=== PATIENT | male | born 1975 | race Caucasian/White ===

== ENCOUNTER 2020-07-25 13:09 | Emergency (ER) | payer SELFPAY ==
[2020-07-25] VITALS (7 sets, daily range): BP systolic 120–228; BP diastolic 85–116; PULSE 81–92; RESP 13–18; TEMP 36.8; O2SAT 93–100; BMI 25.7
--- NOTE | 2020-07-25 14:56 | XR_ITS ---
WS: [id number] Portable AP upright chest, 07/25/2020 Clinical Data: chest pain Comparison: None. Findings: No nodules, masses or effusions are seen. The heart is normal. The pulmonary vascularity is not increased. No pneumonia or pneumothorax is seen. XR/XR chest 1V portable [id number] Impression: Negative chest.
--- NOTE | 2020-07-25 14:56 | ECG_ITS ---
[facility] Test Date: 2020-07-25 Pat Name: GRACE NARAYANAN Department: Room: Gender: Male Rn Ent: : [id number] Requested By: Nikolas Perry Order Number: [id number] Alex MD: Juan Hinson M.D. Measurements Intervals [place] Rate: 85 P: 37 GA: 116 QRS: 34 QRSD: 82 T: 52 QT: 361 QTc: 431 Interpretive Statements SINUS RHYTHM WITH SHORT GA INTERVAL No previous ECG available for comparison Electronically Signed On 07-25-2020 16:01:11 VOLUNTEER PATIENT REPRESENTATIVE by Juan Hinson M.D. [id number]
--- NOTE | 2020-07-25 14:58 | ED_ITS ---
Documented by User: Nikolas Polanco DO 07/29/20 12:14 HPI - Chest Pain General: Chief Complaint: Chest Pain Stated Complaint: CP Time Seen by Provider: 07/25/20 14:53 History of Present Illness: HPI narrative: 45-year-old male notes to the emergency room with complaint of chest discomfort high blood pressure anxiety and shaking. Patient readily admits he drinks heavily on a daily basis pretty much whatever he can get his hands on as far as alcohol goes but in very large quantities has been doing this for years. He has not had any seizures. MD complaint: chest pain and chest discomfort Onset (ago): day(s) Timing of current episode: episodic Onset: during rest Pain location: substernal, left chest and epigastric Pain radiation: none Severity: moderate Quality: aching and heaviness Relieving factors: nothing Exacerbating factors: eating Associated symptoms: Reports abdominal pain, diaphoresis and nausea; Deny dyspnea, fever(s), leg edema, palpitations, sense of impending doom, syncope or vomiting Treatment prior to arrival: none Review of Systems Const: Reports: diaphoresis; Denies: fever(s) ENMT: Denies: throat pain, ear or mastoid pain, nasal discharge or nasal congestion Card: Denies: palpitations or syncope Resp: Denies: dyspnea GI: Reports: abdominal pain and nausea; Denies: vomiting : Denies: flank pain, dysuria, urinary frequency or urinary urgency Skin/Breast: Denies: rash or pruritus Physical Exam Const: COMMON NORMALS: no acute distress GENERAL APPEARANCE: cooperative and comfortable ORIENTATION/CONSCIOUSNESS: Yes awake, Yes oriented to person, Yes oriented to place and Yes oriented to time HENMT: COMMON NORMALS: normocephalic, atraumatic and hearing grossly normal bilaterally HEAD & SCALP: normocephalic and atraumatic Neck/C-Spine: COMMON NORMALS: no JVD Resp: COMMON NORMALS: normal respiratory effort, No retractions, No use of accessory muscles and clear to auscultation bilaterally AUSCULTATION: clear to auscultation bilaterally Cardio: COMMON NORMALS: no JVD, regular rate, regular rhythm and No murmurs present (Cardio) RATE: regular rate RHYTHM: regular rhythm GI: COMMON NORMALS: Soft to palpation and No hepatosplenomegaly present AUSCULTATION: Yes normoactive bowel sounds PALPATION: Yes Soft to palpation, Yes Tenderness to palpation present (GI) (Epigastric), No Guarding due to palpation present (GI) and Yes No hepatosplenomegaly present Extremity: COMMON NORMALS: normal to inspection, capillary refill normal, no clubbing, cyanosis or edema, no calf tenderness and no pedal edema Neuro: SENSORIUM/ORIENTATION: Yes oriented to person, Yes oriented to place and Yes oriented to time Skin: COMMON NORMALS: no rashes or lesions noted GENERAL SKIN EXAM: no rashes or lesions noted Course Vital Signs: Vital signs: Vital Signs Temperature 98.2 F 07/25/20 13:19 Pulse Rate 86 07/25/20 19:29 Respiratory Rate 16 07/25/20 19:29 Blood Pressure 120/85 07/25/20 19:29 Pulse Oximetry 100 07/25/20 19:29 MDM - Chest Pain MDM Narrative: Medical decision making narrative: Turned over to Dr. Sánchez at change of shift see his diagnosis and disposition on final notes. Lab Data: Labs: Lab Results 07/25/20 07/25/20 07/25/20 Range/Units 15:50 15:50 15:50 WBC 6.0 (4.0-10.0) 10^3/ uL RBC 4.64 (4.1-5.3) 10^6/u L Hgb 15.2 (11.7-16.6) g/dL Hct 44.2 (42.0-52.0) % MCV 95.3 H (80-94) fL MCH 32.8 (28.0-34.0) pg MCHC 34.4 (30.0-36.0) g/dL RDW 13.2 (12.1-15.1) % Plt Count 258 (130-400) 10^3/c mm MPV 10.9 H (7.4-10.4) fL Neut % (Auto) 63.7 % Lymph % (Auto) 21.9 % [place] % (Auto) 12.0 % Eos % (Auto) 1.0 % Baso % (Auto) 1.2 % Neut # (Auto) 3.81 (1.8-7.7) 10^3/u L Lymph # (Auto) 1.3 (0.8-4.8) 10^3/u L [place] # (Auto) 0.7 (0.2-0.9) 10^3/u L Eos # (Auto) 0.1 (0.0-0.8) 10^3/u L Baso # (Auto) 0.1 (0.0-0.1) 10^3/u L Nucleated RBC % (a uto) 0 % Nucleated RBCs # 0.0 /100WBC PT (12.1-14.9) SECO NDS INR (0.8-1.2) APTT (23.9-36.7) SECO NDS Sodium 139 (136-145) mmol/L Potassium 4.3 (3.5-5.1) mmol/L Chloride 102 (98-107) mmol/L Carbon Dioxide 22 (22-29) mmol/L Anion Gap 19.3 H (5-19) BUN 8 (6-20) mg/dL Creatinine 0.6 L (0.7-1.2) mg/dL GFR Calculation 147.0 H (90-130) mL/min Glucose 81 (65-115) mg/dL Calculated Osmolal ity 285 (285-295) mOsm/k g Calcium 9.3 (8.5-10.5) mg/dL Total Bilirubin 0.4 (0.15-1.2) mg/dL AST 53 H (0-40) U/L ALT 44 H (0-41) U/L Alkaline Phosphata se 103 (40-130) IU/L Troponin T Baselin e 7 (0-15) ng/L Troponin T 120 Min [place] band (0-15) ng/L Delta Troponin T (0-10) ABS# Total Protein 7.4 (6.6-8.7) g/dL Albumin 4.7 (3.5-5.2) g/dL Globulin 2.7 (1.3-4.6) g/dL 07/25/20 07/25/20 Range/Units 15:50 18:24 WBC (4.0-10.0) 10^3/ uL RBC (4.1-5.3) 10^6/u L Hgb (11.7-16.6) g/dL Hct (42.0-52.0) % MCV (80-94) fL MCH (28.0-34.0) pg MCHC (30.0-36.0) g/dL RDW (12.1-15.1) % Plt Count (130-400) 10^3/c mm MPV (7.4-10.4) fL Neut % (Auto) % Lymph % (Auto) % [place] % (Auto) % Eos % (Auto) % Baso % (Auto) % Neut # (Auto) (1.8-7.7) 10^3/u L Lymph # (Auto) (0.8-4.8) 10^3/u L [place] # (Auto) (0.2-0.9) 10^3/u L Eos # (Auto) (0.0-0.8) 10^3/u L Baso # (Auto) (0.0-0.1) 10^3/u L Nucleated RBC % (a uto) % Nucleated RBCs # /100WBC PT 12.90 (12.1-14.9) SECO NDS INR 0.94 (0.8-1.2) APTT 30.2 (23.9-36.7) SECO NDS Sodium (136-145) mmol/L Potassium (3.5-5.1) mmol/L Chloride (98-107) mmol/L Carbon Dioxide (22-29) mmol/L Anion Gap (5-19) BUN (6-20) mg/dL Creatinine (0.7-1.2) mg/dL GFR Calculation (90-130) mL/min Glucose (65-115) mg/dL Calculated Osmolal ity (285-295) mOsm/k g Calcium (8.5-10.5) mg/dL Total Bilirubin (0.15-1.2) mg/dL AST (0-40) U/L ALT (0-41) U/L Alkaline Phosphata se (40-130) IU/L Troponin T Baselin e (0-15) ng/L Troponin T 120 Min [place] band 7.37 (0-15) ng/L Delta Troponin T 0.37 (0-10) ABS# Total Protein (6.6-8.7) g/dL Albumin (3.5-5.2) g/dL Globulin (1.3-4.6) g/dL Discharge Plan Discharge Patient Disposition: Home Clinical Impression: Chest pain, Hypertension Condition: Stable Prescriptions: New lisinopril 10 mg tablet 10 mg PO DAILY Qty: 30 RF: 0 clonidine HCl 0.1 mg tablet 0.1 mg PO Q6H PRN (Reason: hypertensive emergency) 30 Days Qty: 30 RF: 0 Discharge Orders: Discharge ED (Routine); Ordered 07/25/20 Ordered By: Gary Sánchez Discharge Diet: Advance as tolerated Discharge Activity: Resume usual activity Patient Instructions: Chest Pain (ED), Hypertension (ED) Coding Level of Care Code ED General Production Worker for Chg Fwd Exam Comprehensive Documented by User: Gary Sánchez MD 07/25/20 19:34 HPI - Chest Pain General: Chief Complaint: Chest Pain Stated Complaint: CP Time Seen by Provider: 07/25/20 14:53 Physical Exam Const: COMMON NORMALS: no acute distress, patient oriented x3 and healthy appearing HENMT: COMMON NORMALS: normocephalic and atraumatic HEAD & SCALP: normocephalic and atraumatic Eye: COMMON NORMALS: Equal, round and reactive pupils present and EOMs intact bilaterally PUPIL: Yes Equal, round and reactive pupils present Neck/C-Spine: COMMON NORMALS: full ROM and supple Chest: COMMONS NORMALS: normal inspection of the chest and normal palpation of entire chest wall Resp: COMMON NORMALS: normal respiratory effort, No retractions, No use of accessory muscles and clear to auscultation bilaterally AUSCULTATION: clear to auscultation bilaterally Cardio: COMMON NORMALS: regular rate, regular rhythm and No murmurs present (Cardio) RATE: regular rate RHYTHM: regular rhythm GI: COMMON NORMALS: Normal to inspection, nondistended, normoactive bowel sounds present, Soft to palpation, non-tender and no masses PALPATION: Yes Soft to palpation Extremity: COMMON NORMALS: normal to inspection and full ROM Neuro: COMMON NORMALS: patient oriented x3, moves all extremities and no focal motor deficits Psych: COMMON NORMALS: mental status grossly normal, Normal thought process present and cooperative THOUGHT PROCESS: Normal thought process present Skin: COMMON NORMALS: no rashes or lesions noted and no wounds GENERAL SKIN EXAM: no rashes or lesions noted Course Vital Signs: Vital signs: Vital Signs Temperature 98.2 F 07/25/20 13:19 Pulse Rate 86 07/25/20 19:29 Respiratory Rate 16 07/25/20 19:29 Blood Pressure 120/85 07/25/20 19:29 Pulse Oximetry 100 07/25/20 19:29 MDM - Chest Pain MDM Narrative: Medical decision making narrative: I took patient over from Dr. Gramajo for his hypertension and chest pain. He feels much improved and is repeat troponin here is negative. His blood pressure is much improved as well. I spoke to him and will start him on lisinopril and write him clonidine as needed. Left Case management set him up for PCP referral and informed he needs to take his blood pressure 3 times a day and keep a log. He is return if he has any alcohol withdrawal symptoms or chest pain. He understands and agrees to plan. Lab Data: Labs: Lab Results 07/25/20 07/25/20 07/25/20 Range/Units 15:50 15:50 15:50 WBC 6.0 (4.0-10.0) 10^3/ uL RBC 4.64 (4.1-5.3) 10^6/u L Hgb 15.2 (11.7-16.6) g/dL Hct 44.2 (42.0-52.0) % MCV 95.3 H (80-94) fL MCH 32.8 (28.0-34.0) pg MCHC 34.4 (30.0-36.0) g/dL RDW 13.2 (12.1-15.1) % Plt Count 258 (130-400) 10^3/c mm MPV 10.9 H (7.4-10.4) fL Neut % (Auto) 63.7 % Lymph % (Auto) 21.9 % [place] % (Auto) 12.0 % Eos % (Auto) 1.0 % Baso % (Auto) 1.2 % Neut # (Auto) 3.81 (1.8-7.7) 10^3/u L Lymph # (Auto) 1.3 (0.8-4.8) 10^3/u L [place] # (Auto) 0.7 (0.2-0.9) 10^3/u L Eos # (Auto) 0.1 (0.0-0.8) 10^3/u L Baso # (Auto) 0.1 (0.0-0.1) 10^3/u L Nucleated RBC % (a uto) 0 % Nucleated RBCs # 0.0 /100WBC PT (12.1-14.9) SECO NDS INR (0.8-1.2) APTT (23.9-36.7) SECO NDS Sodium 139 (136-145) mmol/L Potassium 4.3 (3.5-5.1) mmol/L Chloride 102 (98-107) mmol/L Carbon Dioxide 22 (22-29) mmol/L Anion Gap 19.3 H (5-19) BUN 8 (6-20) mg/dL Creatinine 0.6 L (0.7-1.2) mg/dL GFR Calculation 147.0 H (90-130) mL/min Glucose 81 (65-115) mg/dL Calculated Osmolal ity 285 (285-295) mOsm/k g Calcium 9.3 (8.5-10.5) mg/dL Total Bilirubin 0.4 (0.15-1.2) mg/dL AST 53 H (0-40) U/L ALT 44 H (0-41) U/L Alkaline Phosphata se 103 (40-130) IU/L Troponin T Baselin e 7 (0-15) ng/L Troponin T 120 Min [place] band (0-15) ng/L Delta Troponin T (0-10) ABS# Total Protein 7.4 (6.6-8.7) g/dL Albumin 4.7 (3.5-5.2) g/dL Globulin 2.7 (1.3-4.6) g/dL 07/25/20 07/25/20 Range/Units 15:50 18:24 WBC (4.0-10.0) 10^3/ uL RBC (4.1-5.3) 10^6/u L Hgb (11.7-16.6) g/dL Hct (42.0-52.0) % MCV (80-94) fL MCH (28.0-34.0) pg MCHC (30.0-36.0) g/dL RDW (12.1-15.1) % Plt Count (130-400) 10^3/c mm MPV (7.4-10.4) fL Neut % (Auto) % Lymph % (Auto) % [place] % (Auto) % Eos % (Auto) % Baso % (Auto) % Neut # (Auto) (1.8-7.7) 10^3/u L Lymph # (Auto) (0.8-4.8) 10^3/u L [place] # (Auto) (0.2-0.9) 10^3/u L Eos # (Auto) (0.0-0.8) 10^3/u L Baso # (Auto) (0.0-0.1) 10^3/u L Nucleated RBC % (a uto) % Nucleated RBCs # /100WBC PT 12.90 (12.1-14.9) SECO NDS INR 0.94 (0.8-1.2) APTT 30.2 (23.9-36.7) SECO NDS Sodium (136-145) mmol/L Potassium (3.5-5.1) mmol/L Chloride (98-107) mmol/L Carbon Dioxide (22-29) mmol/L Anion Gap (5-19) BUN (6-20) mg/dL Creatinine (0.7-1.2) mg/dL GFR Calculation (90-130) mL/min Glucose (65-115) mg/dL Calculated Osmolal ity (285-295) mOsm/k g Calcium (8.5-10.5) mg/dL Total Bilirubin (0.15-1.2) mg/dL AST (0-40) U/L ALT (0-41) U/L Alkaline Phosphata se (40-130) IU/L Troponin T Baselin e (0-15) ng/L Troponin T 120 Min [place] band 7.37 (0-15) ng/L Delta Troponin T 0.37 (0-10) ABS# Total Protein (6.6-8.7) g/dL Albumin (3.5-5.2) g/dL Globulin (1.3-4.6) g/dL Discharge Plan Discharge Patient Disposition: Home Clinical Impression: Chest pain, Hypertension Condition: Stable Prescriptions: New lisinopril 10 mg tablet 10 mg PO DAILY Qty: 30 RF: 0 clonidine HCl 0.1 mg tablet 0.1 mg PO Q6H PRN (Reason: hypertensive emergency) 30 Days Qty: 30 RF: 0 Discharge Orders: Discharge ED (Routine); Ordered 07/25/20 Ordered By: Gary Sánchez Discharge Diet: Advance as tolerated Discharge Activity: Resume usual activity Patient Instructions: Chest Pain (ED), Hypertension (ED) Coding Level of Care Code ED General Production Worker for tJ Fwd Exam Comprehensive
[2020-07-25] MEDS: ondansetron 2 mg/ML SDV 2 mL 4 MG IVP (15:55)
[2020-07-25] MEDS: amlodipine 5 mg Tablet PO (15:56)
[2020-07-25] MEDS: cloNIDine 0.1 mg Tablet PO (15:56)
[2020-07-25] MEDS: sodium chloride 0.9% 1,000 ML 999 ML IV (15:56)
[2020-07-25] MEDS: LORazepam 2 mg/mL INJ 1 mL IVP (15:56)
[2020-07-25 16:17] LABS: Basophils # 0.1 10^3/uL (0.0-0.1); Basophils % 1.2 %; Eosinophils # 0.1 10^3/uL (0.0-0.8); Hematocrit 44.2 % (42.0-52.0); Hemoglobin 15.2 g/dL (11.7-16.6); Lymphocytes # 1.3 10^3/uL (0.8-4.8); Lymphocytes % 21.9 %; Mean Corpuscular HGB Conc 34.4 g/dL (30.0-36.0); Mean Corpuscular Hemoglobin 32.8 pg (28.0-34.0); Mean Corpuscular Volume 95.3 fL (80-94); Mean Platelet Volume 10.9 fL (7.4-10.4); Monocytes # 0.7 10^3/uL (0.2-0.9); Neutrophils # 3.81 10^3/uL (1.8-7.7); Neutrophils % 63.7 %; Nucleated Red Blood Cells % 0 %; Platelet Count 258 10^3/cmm (130-400); Red Blood Count 4.64 10^6/uL (4.1-5.3); Red Cell Distribution Width 13.2 % (12.1-15.1)
--- NOTE | 2020-07-25 16:20 | PC.NURSE ---
pt had lower oxygen saturation readings after lorazepam adminstration. this nurse applied 2L per NC of supplemental oxygen
[2020-07-25 16:31] LABS: Alanine Aminotransferase 44 U/L (0-41); Albumin Level 4.7 g/dL (3.5-5.2); Alkaline Phosphatase 103 IU/L (40-130); Blood Urea Nitrogen 8 mg/dL (6-20); Calcium 9.3 mg/dL (8.5-10.5); Carbon Dioxide 22 mmol/L (22-29); Chloride 102 mmol/L (98-107); Creatinine Clr Calc Pharmacy 176.8139; Globulin 2.7 g/dL (1.3-4.6); Glucose 81 mg/dL (65-115); Osmolality Calculated 285 mOsm/kg (285-295); Sodium 139 mmol/L (136-145); Total Bilirubin 0.4 mg/dL (0.15-1.2); Total Protein 7.4 g/dL (6.6-8.7)
[2020-07-25 16:33] LABS: Anion Gap 19.3 (5-19); Aspartate Amino Transferase 53 U/L (0-40); Potassium 4.3 mmol/L (3.5-5.1)
[2020-07-25 16:34] LABS: Troponin(5th) Baseline 7 ng/L (0-15)
[2020-07-25 16:45] LABS: INR 0.94 (0.8-1.2)
--- NOTE | 2020-07-25 16:56 | ECG_ITS ---
[facility] Test Date: 2020-07-25 Pat Name: GRACE NARAYANAN Department: Room: Gender: Male Banquet Manager: : 1975 Requested By: Nikolas Perry Order Number: [id number] Alex MD: Juan Hinson M.D. Measurements Intervals [place] Rate: 82 P: 37 ID: 128 QRS: 34 QRSD: 76 T: 50 QT: 380 QTc: 444 Interpretive Statements SINUS RHYTHM Compared to ECG 07/25/2020 13:16:35 Short ID interval no longer present Electronically Signed On 07-25-2020 17:53:25 BICYCLE REPAIR TECHNICIAN by Juan Hinson M.D. [id number]
[2020-07-25 17:20] LABS: Partial Thromboplastin Time 30.2 SECONDS (23.9-36.7)
[2020-07-25] MEDS: folic acid 1 mg Tablet PO (17:24)
--- NOTE | 2020-07-25 17:29 | PC.NURSE ---
EKG done at 1725 and shown to ER doctor
[2020-07-25 18:47] LABS: Troponin 5 2HR 7.37 ng/L (0-15); Troponin 5 2HR Delta 0.37 ABS# (0-10)
--- NOTE | 2020-07-26 10:23 | DCPLANNER ---
land surveying manager had message to speak with patient about getting a primary care physician. land surveying manager called [phone], unable to speak with patient at this time, a voicemail was left for patient to return cyanide case hardener phone call.
== END 2020-07-25 19:30 | disposition home or self-care (01) ==
PROVIDERS: Family Medicine; Emergency Provider Emergency Medicine
DX: R07.9 Chest pain, unspecified (principal); I10 Essential (primary) hypertension; F10.20 Alcohol dependence, uncomplicated
CPT/HCPCS: 36415; 71045; 80053; 84484; 85025; 85610; 85730; 93005; 96361; 96374; 96375; 99284; J2060; J2405; J3411; J7030

== ENCOUNTER 2022-03-25 10:22 | Emergency (ER) | payer MEDICAID, SELFPAY ==
[2022-03-25 12:39] VITALS: BP 142/74; PULSE 122; RESP 18; TEMP 36.9; O2SAT 95; BMI 23.6
[2022-03-25 12:49] LABS: Basophils # 0.1 10^3/uL (0.0-0.1); Basophils % 0.5 %; Eosinophils # 0.3 10^3/uL (0.0-0.8); Eosinophils % 1.3 %; Hematocrit 47.4 % (42.0-52.0); Hemoglobin 16.5 g/dL (11.7-16.6); Lymphocytes # 0.3 10^3/uL (0.8-4.8); Lymphocytes % 1.7 %; Mean Corpuscular HGB Conc 34.8 g/dL (30.0-36.0); Mean Corpuscular Hemoglobin 33.6 pg (28.0-34.0); Mean Corpuscular Volume 96.5 fl (80-94); Mean Platelet Volume 12.7 fL (7.4-10.4); Monocytes # 0.6 10^3/uL (0.2-0.9); Monocytes % 2.8 %; Neutrophils # 17.66 10^3/uL (1.8-7.7); Neutrophils % 89.7 %; Nucleated Red Blood Cells % 0 %; Platelet Count 142 10^3/cmm (130-400); Red Blood Count 4.91 10^6/uL (4.1-5.3); Red Cell Distribution Width 12.3 % (12.1-15.1); White Blood Count 19.7 10^3/uL (4.0-10.0)
--- NOTE | 2022-03-25 12:58 | XRR_ITS ---
PROCEDURE INFORMATION: Exam: XR Cervical Spine Exam date and time: 03/25/2022 1:06 PM Age: 46 years old Clinical indication: Neck pain; Patient HX: Pain allover, mainly below base of skull TECHNIQUE: Imaging protocol: Radiologic exam of the cervical spine. Views: 2 or 3 views. COMPARISON: CR XR chest 1V portable [id number] 07/25/2020 3:12 PM FINDINGS: Bones/joints: Normal. No acute fracture. Reversal of cervical lordosis which may reflect muscle spasm Soft tissues: Unremarkable. XR/XR cervical spine 3V* [id number] IMPRESSION: 1. No acute findings. 2. Reversal of cervical lordosis possible muscle spasm
--- NOTE | 2022-03-25 13:01 | ED_ITS ---
Documented by User: ELLE Dillard 03/26/22 08:12 HPI - General Adult General: Chief complaint: General Medical Stated complaint: Can't move, full body pain Time Seen by Provider: 03/25/22 12:47 History of Present Illness: Patient is a 46-year-old male comes to the ED with neck pain. He has a history of chronic neck pain but denies any acute injury or trauma to cause neck pain. 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 Pain started last night at the end of his workday. Started initially as a mild aching neck and a severe headache and progressed throughout the evening and last night. His headache today has gotten better and he rates it currently a 3 out of 10. At rest his neck pain is a 5 out of 10 but with any movement and sudden 9 out of 10. Pain radiates down into his trapezius muscles bilaterally. Patient took 800 mg of ibuprofen this morning around 9 AM. Denies any fevers. Patient admits to being a heavy alcohol drinker and tobacco smoker. Associated symptoms: Reports headache(s); Deny chest pain, dyspnea, nausea, rash, palpitations or vomiting Review of Systems Const: Denies: fever(s), chills or fatigue Eyes: Denies: change in vision or eye discomfort ENMT: Denies: throat pain, odynophagia, nasal discharge or nasal congestion Card: Denies: chest pain, palpitations, edema, swelling of feet/ankles, dyspnea on exertion or orthopnea Resp: Denies: dyspnea, productive cough or non-productive cough GI: Denies: abdominal pain, nausea, vomiting, diarrhea, constipation or hematochezia : Denies: flank pain, difficulty urinating, dysuria or hematuria Musc: Reports: neck pain; Denies: back pain or extremity swelling Skin/Breast: Denies: rash or new lesions Neuro: Reports: headache(s); Denies: numbness in extremities or weakness in extremities PFS ED PFSH: Medical History No pertinent family history Surgical History No pertinent past surgical history Physical Exam Const: COMMON NORMALS: no acute distress, patient oriented x3 and alert GEN ERAL APPEARANCE: cooperative and comfortable HENMT: COMMON NORMALS: normocephalic HEAD & SCALP: normocephalic MOUTH: Normal oral and palatal mucosa present THROAT: posterior oropharynx normal and uvula midline Eye: COMMON NORMALS: Equal, round and reactive pupils present and conjunctivae normal CONJUNCTIVA: Yes conjunctivae normal PUPIL: Yes Equal, round and reactive pupils present Neck/C-Spine: COMMON NORMALS: supple and no meningeal signs GENERAL: Yes normal visual inspection CERVICAL SPINE: Yes pain with cervical ROM, Yes Cervical spine tenderness, Yes Paracervical muscle tenderness and Yes Trapezius muscle tenderness Resp: COMMON NORMALS: normal respiratory effort, No retractions, No use of accessory muscles and clear to auscultation bilaterally AUSCULTATION: clear to auscultation bilaterally Cardio: COMMON NORMALS: regular rate, regular rhythm, S1 normal heart sound present, S2 normal heart sound present, No gallops present (Cardio), No clicks present (Cardio), No murmurs present (Cardio) and Peripheral pulses 2+ throughout RATE: regular rate RHYTHM: regular rhythm HEART SOUNDS: S1 normal heart sound present and S2 normal heart sound present PERIPHERAL PULSES: Peripheral pulses 2+ throughout GI: COMMON NORMALS: Normal to inspection, nondistended, normoactive bowel sounds present, Soft to palpation, non-tender and no masses PALPATION: Yes Soft to palpation : COMMON NORMALS: Yes no CVA tenderness BLADDER/KIDNEY EXAM: Yes no CVA tenderness Back/Pelvis: COMMON NORMALS: no CVA tenderness Extremity: COMMON NORMALS: normal to inspection Neuro: COMMON NORMALS: patient oriented x3 SENSORIUM/ORIENTATION: Yes alert MENINGEAL SIGNS: Yes no meningeal signs GAIT: Yes Normal gait present Skin: GENERAL SKIN EXAM: dry skin Course Vital Signs: Vital signs: Vital Signs Temperature 98.4 F 03/25/22 12:39 Pulse Rate 122 H 03/25/22 12:39 Respiratory Rate 18 03/25/22 14:32 Blood Pressure 142/74 03/25/22 12:39 Pulse Oximetry 95 03/25/22 12:39 Oxygen Delivery Me thod 03/25/22 12:[address] [facility] - General Adult Medical Decision Making Patient is a 46-year-old male comes to the ED with neck pain. He has a history of chronic neck pain but denies any acute injury or trauma to cause neck pain. 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 Pain started last night at the end of his workday. Started initially as a mild aching neck and a severe headache and progressed throughout the evening and last night. His headache today has gotten better and he rates it currently a 3 out of 10. Vitals are stable. Patient appears nontoxic in no acute distress. He has pain with cervical range of motion and cervical spine tenderness along with paracervical muscle tenderness and trapezius muscle tenderness bilaterally. No meningeal signs. White blood cell count 19.7 and creatinine was 1.4. X-ray of cervical spine showed no acute fractures or findings. Head CT was negative. Patient was given 1 L of IV fluids, muscle relaxer, Toradol and morphine and his neck pain improved.. I talked with Dr. Polanco about patient case and he went in and examined patient as well. Dr. Espinosa did both agree patient does not show any clinical signs or concerns of meningitis and that neck pain is muscular in nature. Patient was diagnosed with acute neck pain and was stable for discharge home. Patient discharged home with a prescription for a muscle relaxer, Medrol Dosepak, Celebrex and a couple [place] for acute pain. Return to ED precautions given. Follow-up with PCP within the next week for reevaluation. Patient understood and agreed with plan. Lab Data I reviewed the patient's lab results. : 03/25/22 12:26 03/25/22 12:31 Radiology Impressions Cervical Spine X-Ray 03/25/22 12:58 IMPRESSION: 1. No acute findings. 2. Reversal of cervical lordosis possible muscle spasm Head CT 03/25/22 13:45 IMPRESSION: Negative head CT. Laboratory Results WBC 19.7 10^3/uL (4.0-10.0) H 03/25/22 12:26 RBC 4.91 10^6/uL (4.1-5.3) 03/25/22 12:26 Hgb 16.5 g/dL (11.7-16.6) 03/25/22 12: Hct 47.4 % (42.0-52.0) 03/25/22 12: MCV 96.5 fl (80-94) H 03/25/22 12: MCH 33.6 pg (28.0-34.0) 03/25/22 12:26 MCHC 34.8 g/dL (30.0-36.0) 03/25/22 12: RDW 12.3 % (12.1-15.1) 03/25/22 12: Plt Count 142 10^3/cmm (130-400) 03/25/22 12: MPV 12.7 fL (7.4-10.4) H 03/25/22 12: Neut % (Auto) 89.7 % 03/25/22 12: Lymph % (Auto) 1.7 % 03/25/22 12: [place] % (Auto) 2.8 % 03/25/22 12: Eos % (Auto) 1.3 % 03/25/22: Baso % (Auto) 0.5 % 03/25/22 12: Neut # (Auto) 17.66 10^3/uL (1.8-7.7) H 03/25/22 12: Lymph # (Auto) 0.3 10^3/uL (0.8-4.8) L 03/25/22 12: [place] # (Auto) 0.6 10^3/uL (0.2-0.9) 03/25/22 12: Eos # (Auto) 0.3 10^3/uL (0.0-0.8) 03/25/22 12: Baso # (Auto) 0.1 10^3/uL (0.0-0.1) 03/25/22 12: Nucleated RBC % (auto) 0 % 03/25/22 12: Nucleated RBCs # 0.0 /100WBC 03/25/22 12:26 Sodium 132 mmol/L (136-145) L 03/25/22 12:31 Potassium 4.7 mmol/L (3.5-5.1) 03/25/22 12: Chloride 92 mmol/L (98-107) L 03/25/22 12:31 Carbon Dioxide 26 mmol/L (22-29) 03/25/22 12:31 Anion Gap 18.7 (5-19) 03/25/22 12:31 BUN 25 mg/dL (6-20) H 03/25/22 12:31 Creatinine 1.4 mg/dL (0.7-1.2) H 03/25/22 12:31 GFR Calculation 55.1 mL/min (90-130) L 03/25/22 12:31 Glucose 111 mg/dL (65-115) 03/25/22 12:31 Calculated Osmolality 279 mOsm/kg (285-295) L 03/25/22 12:31 Calcium 10.8 mg/dL (8.5-10.5) H 03/25/22 12:31 Total Bilirubin 0.7 mg/dL (0.15-1.2) 03/25/22 12:31 AST 206 U/L (0-40) H 03/25/22 12:31 ALT 226 U/L (0-41) H 03/25/22 12:31 Alkaline Phosphatase 126 U/L (40-130) 03/25/22 12:31 Total Protein 7.8 g/dL (6.6-8.7) 03/25/22 12:31 Albumin 4.5 g/dL (3.5-5.2) 03/25/22 12:31 Globulin 3.3 g/dL (1.3-4.6) 03/25/22 12:31 Lipase 26 U/L (13-60) 03/25/22 12:31 Discharge Plan Discharge Patient Disposition: Home Clinical Impression: Acute neck pain Condition: Stable Prescriptions: New cyclobenzaprine 10 mg tablet 10 mg PO BID PRN (Reason: muscle spasm) Qty: 20 0RF Celebrex 100 mg capsule 100 mg PO BID PRN (Reason: pain) Qty: 20 0RF Medrol (Larry) 4 mg tablets,dose pack See Rx Instructions .ROUTE .COMPLEX Qty: 21 0RF Rx Instructions: orally per package directions No Action lisinopril 10 mg tablet 10 mg PO DAILY Qty: 30 0RF Discharge Orders: Discharge ED (Routine); Ordered 03/25/22 Ordered By: Davon Arnold Discharge Diet: Regular Discharge Activity: Increase activity as tolerated Patient Instructions: Acute Neck Pain (ED), Opioid Safety Activity Restrictions/Additional Instructions: Follow-up with medical provider as directed in the next 5 to 7 days for reevaluation. Take medications as prescribed. Return to the ER or your medical provider if condition worsens. Please read and understand discharge instructions. Thank you for choosing [facility] for your healthcare needs today. Please realize this is an emergency room and that we are providing you with a medical screening exam and this may not be complete and all inclusive of all the testing and or work up that you may need to determine your ailment or severity of your illness. It is very important that you follow up as instructed or that you return to the Emergency Department should you have concerns or if your condition changes or worsens in any way. Stand Alone Forms: Work/School Release Coding Level of Care Code ED Truck Driving Instructor for Chg Fwd Exam Comprehensive Documented by User: Nikolas Polanco DO 03/26/22 09:33 HPI - General Adult 2 General: Chief complaint: General Medical Stated complaint: Can't move, full body pain Time Seen by Provider: 03/25/22 12:47 [facility] ED PFSH: Medical History No pertinent family history Surgical History No pertinent past surgical history Course Vital Signs: Vital signs: Vital Signs Temperature 98.4 F 03/25/22 12:39 Pulse Rate 122 H 03/25/22 12:39 Respiratory Rate 18 03/25/22 14:32 Blood Pressure 142/74 03/25/22 12:39 Pulse Oximetry 95 03/25/22 12:39 Oxygen Delivery Me thod 03/25/22 12:39 MDM - General Adult Medical Decision Making Patient is a 46-year-old male comes to the ED with neck pain. He has a history of chronic neck pain but denies any acute injury or trauma to cause neck pain. 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 Pain started last night at the end of his workday. Started initially as a mild aching neck and a severe headache and progressed throughout the evening and last night. His headache today has gotten better and he rates it currently a 3 out of 10. Vitals are stable. Patient appears nontoxic in no acute distress. He has pain with cervical range of motion and cervical spine tenderness along with paracervical muscle tenderness and trapezius muscle tenderness bilaterally. No meningeal signs. White blood cell count 19.7 and creatinine was 1.4. X-ray of cervical spine showed no acute fractures or findings. Head CT was negative. Patient was given 1 L of IV fluids, muscle relaxer, Toradol and morphine and his neck pain improved.. I talked with Dr. Polanco about patient case and he went in and examined patient as well. Dr. Espinosa did both agree patient does not show any clinical signs or concerns of meningitis and that neck pain is muscular in nature. Patient was diagnosed with acute neck pain and was stable for discharge home. Patient discharged home with a prescription for a muscle relaxer, Medrol Dosepak, Celebrex and a couple [place] for acute pain. Return to ED precautions given. Follow-up with PCP within the next week for reevaluation. Patient understood and agreed with plan. Chart reviewed and patient discussed with midlevel. Agree with assessment and plan. Lab Data : 03/25/22 12:26 03/25/22 12:31 Radiology Impressions Cervical Spine X-Ray 03/25/22 12:58 IMPRESSION: 1. No acute findings. 2. Reversal of cervical lordosis possible muscle spasm Head CT 03/25/22 13:45 IMPRESSION: Negative head CT. Laboratory Results WBC 19.7 10^3/uL (4.0-10.0) H 03/25/22 12: RBC 4.91 10^6/uL (4.1-5.3) 03/25/22 12:26 Hgb 16.5 g/dL (11.7-16.6) 03/25/22 12:26 Hct 47.4 % (42.0-52.0) 03/25/22 12: MCV 96.5 fl (80-94) H 03/25/22 12: MCH 33.6 pg (28.0-34.0) 03/25/22 12: MCHC 34.8 g/dL (30.0-36.0) 03/25/22 12: RDW 12.3 % (12.1-15.1) 03/25/22 12:26 Plt Count 142 10^3/cmm (130-400) 03/25/22 12: MPV 12.7 fL (7.4-10.4) H 03/25/22 12: Neut % (Auto) 89.7 % 03/25/22 12: Lymph % (Auto) 1.7 % 03/25/22 12: [place] % (Auto) 2.8 % 03/25/22 12: Eos % (Auto) 1.3 % 03/25/22 12: Baso % (Auto) 0.5 % 03/25/22 12: Neut # (Auto) 17.66 10^3/uL (1.8-7.7) H 03/25/22 12: Lymph # (Auto) 0.3 10^3/uL (0.8-4.8) L 03/25/22 12: [place] # (Auto) 0.6 10^3/uL (0.2-0.9) 03/25/22 12: Eos # (Auto) 0.3 10^3/uL (0.0-0.8) 03/25/22 12: Baso # (Auto) 0.1 10^3/uL (0.0-0.1) 03/25/22 12: Nucleated RBC % (auto) 0 % 03/25/22 12: Nucleated RBCs # 0.0 /100WBC 03/25/22 12:26 Sodium 132 mmol/L (136-145) L 03/25/22 12:31 Potassium 4.7 mmol/L (3.5-5.1) 03/25/22 12: Chloride 92 mmol/L (98-107) L 03/25/22 12:31 Carbon Dioxide 26 mmol/L (22-29) 03/25/22 12:31 Anion Gap 18.7 (5-19) 03/25/22 12:31 BUN 25 mg/dL (6-20) H 03/25/22 12:31 Creatinine 1.4 mg/dL (0.7-1.2) H 03/25/22 12:31 GFR Calculation 55.1 mL/min (90-130) L 03/25/22 12:31 Glucose 111 mg/dL (65-115) 03/25/22 12:31 Calculated Osmolality 279 mOsm/kg (285-295) L 03/25/22 12:31 Calcium 10.8 mg/dL (8.5-10.5) H 03/25/22 12:31 Total Bilirubin 0.7 mg/dL (0.15-1.2) 03/25/22 12:31 AST 206 U/L (0-40) H 03/25/22 12:31 ALT 226 U/L (0-41) H 03/25/22 12:31 Alkaline Phosphatase 126 U/L (40-130) 03/25/22 12:31 Total Protein 7.8 g/dL (6.6-8.7) 03/25/22 12:31 Albumin 4.5 g/dL (3.5-5.2) 03/25/22 12:31 Globulin 3.3 g/dL (1.3-4.6) 03/25/22 12:31 Lipase 26 U/L (13-60) 03/25/22 12:31 Discharge Plan Discharge Patient Disposition: Home Clinical Impression: Acute neck pain Condition: Stable Prescriptions: New cyclobenzaprine 10 mg tablet 10 mg PO BID PRN (Reason: muscle spasm) Qty: 20 0RF Celebrex 100 mg capsule 100 mg PO BID PRN (Reason: pain) Qty: 20 0RF Medrol (Larry) 4 mg tablets,dose pack See Rx Instructions .ROUTE .COMPLEX Qty: 21 0RF Rx Instructions: orally per package directions No Action lisinopril 10 mg tablet 10 mg PO DAILY Qty: 30 0RF Discharge Orders: Discharge ED (Routine); Ordered 03/25/22 Ordered By: Davon Arnold Discharge Diet: Regular Discharge Activity: Increase activity as tolerated Patient Instructions: Acute Neck Pain (ED), Opioid Safety Activity Restrictions/Additional Instructions: Follow-up with medical provider as directed in the next 5 to 7 days for reevaluation. Take medications as prescribed. Return to the ER or your medical provider if condition worsens. Please read and understand discharge instructions. Thank you for choosing [facility] for your healthcare needs today. Please realize this is an emergency room and that we are providing you with a medical screening exam and this may not be complete and all inclusive of all the testing and or work up that you may need to determine your ailment or severity of your illness. It is very important that you follow up as instructed or that you return to the Emergency Department should you have concerns or if your condition changes or worsens in any way. Stand Alone Forms: Work/School Release Coding Level of Care Code ED Truck Driving Instructor for Chg Fwd Exam Comprehensive
[2022-03-25] MEDS: orphenadrine 30 mg/mL Inj 2 mL 60 MG IM (13:06)
[2022-03-25] MEDS: ketorolac 60 mg/2 mL INJ IM (13:06)
[2022-03-25 13:11] LABS: Slide Review Slide Review Perform
[2022-03-25 13:19] LABS: Alanine Aminotransferase 226 U/L (0-41); Albumin Level 4.5 g/dL (3.5-5.2); Alkaline Phosphatase 126 U/L (40-130); Anion Gap 18.7 (5-19); Aspartate Amino Transferase 206 U/L (0-40); Blood Urea Nitrogen 25 mg/dL (6-20); Calcium 10.8 mg/dL (8.5-10.5); Carbon Dioxide 26 mmol/L (22-29); Chloride 92 mmol/L (98-107); Globulin 3.3 g/dL (1.3-4.6); Glomerular Filtration Rate 55.1 mL/min (90-130); Glucose 111 mg/dL (65-115); Lipase 26 U/L (13-60); Osmolality Calculated 279 mOsm/kg (285-295); Potassium 4.7 mmol/L (3.5-5.1); Sodium 132 mmol/L (136-145); Total Bilirubin 0.7 mg/dL (0.15-1.2); Total Protein 7.8 g/dL (6.6-8.7)
--- NOTE | 2022-03-25 13:45 | CT_ITS ---
WS: [id number] CT HEAD NONCONTRAST HISTORY: headache w/ neck pain and elevated WBC TECHNIQUE: Contiguous axial imaging performed through the brain in 2.5 mm imaging. Bone and soft tiss ue windows. Sagittal and coronal reformats reviewed. All CT scans at [facility] use at least one of these dose optimization techniques: automated exposure control; mA and/or kV adjustment per pa tient size (includes targeted exams where dose is matched to clinical indication); or iterative recon struction. DLP: 1141.18 mGy.cm COMPARISON: None available. No acute intracranial hemorrhage, midline shift or mass effect. No atrophy or prior infarcts or herniation. Ventricles: Normal size with no hydrocephalus. Paranasal sinuses: Very small amount mucoperiosteal thickening through the RIGHT frontal ethmoid rece ss. No air-fluid levels. Mastoid air cells: Well pneumatized. Calvarium and scalp: Skull is intact with no soft tissue edema or swelling. CT/CT head wo con* [id number] IMPRESSION: Negative head CT.
[2022-03-25] MEDS: sodium chloride 0.9% 1,000 ML 999 ML IV (14:07)
[2022-03-25 14:32] VITALS: RESP 18
[2022-03-25] MEDS: ondansetron 2 mg/ML SDV 2 mL 4 MG IVP (14:32)
[2022-03-25] MEDS: morphine 4 mg/mL SDV 1 mL IVP (14:32)
== END 2022-03-25 16:23 | disposition home or self-care (01) ==
PROVIDERS: Emergency Medicine; Emergency Provider Physician Assistant
DX: M54.2 Cervicalgia (principal)
CPT/HCPCS: 70450; 72040; 80053; 83690; 85025; 96361; 96372; 96374; 96375; 99285; J1885; J2270; J2360; J2405; J7030

== ENCOUNTER 2022-03-28 19:59 | Emergency (ER) | payer MEDICAID, SELFPAY ==
[2022-03-28 20:01] VITALS: BP 174/137; PULSE 125; RESP 19; TEMP 36.9; O2SAT 91; BMI 24.4
--- NOTE | 2022-03-28 20:10 | XRR_ITS ---
PROCEDURE INFORMATION: Exam: XR Chest Exam date and time: 03/28/2022 8:18 PM Age: 46 years old Clinical indication: Pain; Chest pressure TECHNIQUE: Imaging protocol: Radiologic exam of the chest. Views: 1 view. COMPARISON: CR XR chest 1V portable [id number] 07/25/2020 3:12 PM FINDINGS: Lungs: Unremarkable. No consolidation. Pleural spaces: Unremarkable. No pleural effusion. No pneumothorax. Heart/Mediastinum: Unremarkable. No cardiomegaly. Bones/joints: No acute findings. XR/XR chest 1V portable [id number] IMPRESSION: No acute findings.
[2022-03-28 20:15] LABS: Basophils # 0.1 10^3/uL (0.0-0.1); Basophils % 0.5 %; Eosinophils # 0.1 10^3/uL (0.0-0.8); Eosinophils % 0.4 %; Hematocrit 41.5 % (42.0-52.0); Hemoglobin 14.4 g/dL (11.7-16.6); Lymphocytes # 1.1 10^3/uL (0.8-4.8); Lymphocytes % 9.2 %; Mean Corpuscular HGB Conc 34.7 g/dL (30.0-36.0); Mean Corpuscular Volume 97.9 fl (80-94); Monocytes # 1.7 10^3/uL (0.2-0.9); Monocytes % 14.3 %; Neutrophils # 8.84 10^3/uL (1.8-7.7); Nucleated Red Blood Cells % 0 %; Platelet Count 103 10^3/cmm (130-400); Red Blood Count 4.24 10^6/uL (4.1-5.3); Red Cell Distribution Width 12.4 % (12.1-15.1)
[2022-03-28 20:21] LABS: Erythrocyte Sedimentation Rate 35 mm/hr (0-10)
--- NOTE | 2022-03-28 20:23 | ED_ITS ---
HPI - Extremity Problem General: Chief complaint: Extremity Problem,Nontraumatic Stated complaint: Leg Pain Time Seen by Provider: 03/28/22 19:59 Source: patient and EMS Mode of arrival: EMS Limitations: no limitations History of Present Illness: 46-year-old male who has history of chronic back pain patient was seen here 2 days ago for low back pain and neck pain he has been on pain meds along with multiple accidents he states that his pain is worsened. He states he is got a severe pain in his lower lumbar region. He states it is much worse with movement and walking has had some neck and thoracic pain but states that the main pain is in his lower back. He denies any vomiting or diarrhea he has had no fevers. Associated symptoms: Deny chest pain, fever(s) or rash Review of Systems Const: Denies: fever(s), chills, body aches or change in appetite Eyes: Denies: blurry vision or eye discomfort ENMT: Denies: throat pain or dental pain Card: Denies: chest pain Resp: Denies: dyspnea GI: Denies: abdominal pain, nausea, vomiting or diarrhea : Denies: dysuria Musc: Reports: back pain Skin/Breast: Denies: rash Neuro: Denies: headache(s) Psych: Denies: depression Tim/Lymph: Denies: easy bruising All/Imm: Denies: urticaria PFSH ED PFSH: Medical History No pertinent family history Surgical History No pertinent past surgical history Physical Exam Const: COMMON NORMALS: patient oriented x3 and healthy appearing HENMT: COMMON NORMALS: normocephalic and atraumatic HEAD & SCALP: normocephalic and atraumatic Eye: COMMON NORMALS: Equal, round and reactive pupils present and EOMs intact bilaterally PUPIL: Yes Equal, round and reactive pupils present Neck/C-Spine: COMMON NORMALS: full ROM and supple Chest: COMMONS NORMALS: normal inspection of the chest and normal palpation of entire chest wall Resp: COMMON NORMALS: normal respiratory effort, No retractions, No use of accessory muscles and clear to auscultation bilaterally AUSCULTATION: clear to auscultation bilaterally Cardio: COMMON NORMALS: regular rate, regular rhythm and No murmurs present (Cardio) RATE: regular rate RHYTHM: regular rhythm GI: COMMON NORMALS: Normal to inspection, nondistended, normoactive bowel sounds present, Soft to palpation, non-tender and no masses PALPATION: Yes Soft to palpation Extremity: COMMON NORMALS: normal to inspection and full ROM Neuro: COMMON NORMALS: patient oriented x3, moves all extremities and no focal motor deficits Psych: COMMON NORMALS: mental status grossly normal, Normal thought process present and cooperative THOUGHT PROCESS: Normal thought process present Skin: COMMON NORMALS: no rashes or lesions noted and no wounds GENERAL SKIN EXAM: no rashes or lesions noted Course Vital Signs: Vital signs: Vital Signs Temperature 98.5 F 03/28/22 20:01 Pulse Rate 125 H 03/28/22 20:01 Respiratory Rate 19 H 03/28/22 20:01 Blood Pressure 174/137 03/28/22 20:01 Pulse Oximetry 91 03/28/22 20:01 MDM - Extremity (Nontraumatic) Medical Decision Making Patient presents here with severe back pain MRI findings showed some marrow findings with some possible hyperplasia versus a neoplasm he is also been hypertensive and hyponatremic here. Did speak to [facility] and will transfer there for higher level of care for neurosurgery. Lab Data : 03/28/22 20:00 03/28/22 20:00 Radiology Impressions Chest X-Ray 03/28/22 20:10 IMPRESSION: No acute findings. Abdomen/Pelvis CT 03/28/22 20:52 IMPRESSION: No acute findings. Fatty liver and hepatomegaly Cervical Spine MRI 03/28/22 20:52 IMPRESSION: Degenerative disc changes C5-C6 and C6-C7 with associated mild spinal canal narrowing at C5-C6. Nonspecific marrow signal findings raising question of marrow abnormalities. Marrow reconversion/hyperplasia, myelofibrosis, hemochromatosis, anemia of chronic disease or even neoplasm are all considerations and clinical correlation is recommended. 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 Heterogeneous but somewhat predominantly diminished marrow signal; please see MRI cervical spine report from same date. Thoracic Spine MRI 03/28/22 20:52 IMPRESSION: Marrow signal findings that can be referenced on MRI cervical spine report from same date. Otherwise, no acute findings within the thoracic spine and no findings of spinal canal compromise. Laboratory Results WBC 12.0 10^3/uL (4.0-10.0) H 03/28/22 20:00 RBC 4.24 10^6/uL (4.1-5.3) 03/28/22 20:00 Hgb 14.4 g/dL (11.7-16.6) 03/28/22 20:00 Hct 41.5 % (42.0-52.0) L 03/28/22 20:00 MCV 97.9 fl (80-94) H 03/28/22 20:00 MCH 34.0 pg (28.0-34.0) 03/28/22 20:00 MCHC 34.7 g/dL (30.0-36.0) 03/28/22 20:00 RDW 12.4 % (12.1-15.1) 03/28/22 20:00 Plt Count 103 10^3/cmm (130-400) L 03/28/22 20:00 MPV 13.0 fL (7.4-10.4) H 03/28/22 20:00 Neut % (Auto) 74.0 % 03/28/22 20:00 Lymph % (Auto) 9.2 % 03/28/22 20:00 [place] % (Auto) 14.3 % 03/28/22 20:00 Eos % (Auto) 0.4 % 03/28/22 20:00 Baso % (Auto) 0.5 % 03/28/22 20:00 Neut # (Auto) 8.84 10^3/uL (1.8-7.7) H 03/28/22 20:00 Lymph # (Auto) 1.1 10^3/uL (0.8-4.8) 03/28/22 20:00 [place] # (Auto) 1.7 10^3/uL (0.2-0.9) H 03/28/22 20:00 Eos # (Auto) 0.1 10^3/uL (0.0-0.8) 03/28/22 20:00 Baso # (Auto) 0.1 10^3/uL (0.0-0.1) 03/28/22 20:00 Nucleated RBC % (auto) 0 % 03/28/22 20:00 Nucleated RBCs # 0.0 /100WBC 10/15/22 20:00 ESR 35 mm/hr (0-10) H 03/28/22 20:00 Sodium 121 mmol/L (136-145) L 03/28/22 20:00 Potassium 3.8 mmol/L (3.5-5.1) 03/28/22 20:00 Chloride 88 mmol/L (98-107) L 03/28/22 20:00 Carbon Dioxide 26 mmol/L (22-29) 03/28/22 20:00 Anion Gap 10.8 (5-19) 03/28/22 20:00 BUN 13 mg/dL (6-20) 03/28/22 20:00 Creatinine 0.6 mg/dL (0.7-1.2) L 03/28/22 20:00 GFR Calculation 146.4 mL/min (90-130) H 03/28/22 20:00 Glucose 104 mg/dL (65-115) 03/28/22 20:00 Calculated Osmolality 252 mOsm/kg (285-295) L 03/28/22 20:00 Calcium 9.1 mg/dL (8.5-10.5) 03/28/22 20:00 Total Bilirubin 0.6 mg/dL (0.15-1.2) 03/28/22 20:00 AST 123 U/L (0-40) H 03/28/22 20:00 ALT 168 U/L (0-41) H 03/28/22 20:00 Alkaline Phosphatase 229 U/L (40-130) H 03/28/22 20:00 C-Reactive Protein 228.1 mg/L (0.0-4.9) H 03/28/22 20:00 Total Protein 6.7 g/dL (6.6-8.7) 03/28/22 20:00 Albumin 3.7 g/dL (3.5-5.2) 03/28/22 20:00 Globulin 3.0 g/dL (1.3-4.6) 03/28/22 20:00 Lipase 30 U/L (13-60) 03/28/22 20:00 Discharge Plan Discharge Condition: Stable Prescriptions: No Action lisinopril 10 mg tablet 10 mg PO DAILY Qty: 30 0RF cyclobenzaprine 10 mg tablet 10 mg PO BID PRN (Reason: muscle spasm) Qty: 20 0RF Celebrex 100 mg capsule 100 mg PO BID PRN (Reason: pain) Qty: 20 0RF Medrol (Larry) 4 mg tablets,dose pack See Rx Instructions .ROUTE .COMPLEX Qty: 21 0RF Rx Instructions: orally per package directions Coding Level of Care Code ED Administrator Pesticide for Jt Fwd Exam Comprehensive
[2022-03-28] MEDS: metoclopramide 5 mg/mL SDV 2 mL 10 MG IVP (20:30)
[2022-03-28] MEDS: diphenhydrAMINE 50 mg/mL SDV 1mL IVP (20:30)
[2022-03-28 20:48] LABS: Alanine Aminotransferase 168 U/L (0-41); Albumin Level 3.7 g/dL (3.5-5.2); Alkaline Phosphatase 229 U/L (40-130); Anion Gap 10.8 (5-19); Aspartate Amino Transferase 123 U/L (0-40); Blood Urea Nitrogen 13 mg/dL (6-20); C Reactive Protein 228.1 mg/L (0.0-4.9); Calcium 9.1 mg/dL (8.5-10.5); Carbon Dioxide 26 mmol/L (22-29); Chloride 88 mmol/L (98-107); Glomerular Filtration Rate 146.4 mL/min (90-130); Glucose 104 mg/dL (65-115); Lipase 30 U/L (13-60); Osmolality Calculated 252 mOsm/kg (285-295); Potassium 3.8 mmol/L (3.5-5.1); Sodium 121 mmol/L (136-145); Total Bilirubin 0.6 mg/dL (0.15-1.2); Total Protein 6.7 g/dL (6.6-8.7)
[2022-03-28 20:50] LABS: Creatinine Clr Calc Pharmacy 170.9591
--- NOTE | 2022-03-28 20:52 | MRR_ITS ---
PROCEDURE INFORMATION: Exam: MR Cervical Spine Without Contrast Exam date and time: 03/28/2022 9:41 PM Age: 46 years old Clinical indication: Neck pain TECHNIQUE: Imaging protocol: Magnetic resonance imaging of the cervical spine without contrast. COMPARISON: CR XR cervical spine 3V* [id number] 03/25/2022 1:06 PM FINDINGS: Bones/joints: Diffuse disc bulge at C5-C6 results in mild spinal canal narrowing. Degenerative disc changes are also seen at C6-C7 with associated mild Modic 1 endplate signal. Somewhat decreased marrow signal on T1 weighted imaging suggested . Corresponding low signal also suggested on STIR and T2. Spinal cord: Normal signal. No cord compression. Discs/Spinal canal/Neural foramina: No significant disc disease. No significant spinal stenosis. Vasculature: Expected flow voids in the vertebral arteries. Soft tissues: Unremarkable MR/MR cervical spin wo con* [id number] IMPRESSION: Degenerative disc changes C5-C6 and C6-C7 with associated mild spinal canal narrowing at C5-C6. Nonspecific marrow signal findings raising question of marrow abnormalities. Marrow reconversion/hyperplasia, myelofibrosis, hemochromatosis, anemia of chronic disease or even neoplasm are all considerations and clinical correlation is recommended.
--- NOTE | 2022-03-28 20:52 | MRR_ITS ---
PROCEDURE INFORMATION: Exam: MR Lumbar Spine Without Contrast. Exam date and time: 03/28/2022 10:16 PM Age: 46 years old Clinical indication: Low back pain TECHNIQUE: Imaging protocol: Magnetic resonance imaging of the lumbar spine without contrast. COMPARISON: MR thoracic spin wo con* [id number] 03/28/2022 9:59 PM FINDINGS: Bones/joints: Heterogeneous but somewhat predominantly diminished marrow signal; please see MRI cervical spine report from same date. Extrusive disc herniation suggested at left paracentral aspect of L5-S1 displaces left S1 nerve root laterally. Disc space narrowing noted at L5-S1. Remaining disc levels are unremarkable. Spinal cord: Visualized cord, conus medullaris and cauda equina are unremarkable without compression. Discs/Spinal canal/Neural foramina: No significant disc disease. No significant spinal canal stenosis. No neural foraminal stenosis. Soft tissues: Unremarkable. MR/MR lumbar spine wo con* [id number] IMPRESSION: Left paracentral extrusive disc herniation at L5-S1. Heterogeneous but somewhat predominantly diminished marrow signal; please see MRI cervical spine report from same date.
--- NOTE | 2022-03-28 20:52 | CTR_ITS ---
PROCEDURE INFORMATION: Exam: CT Abdomen And Pelvis Without Contrast Exam date and time: 03/28/2022 9:11 PM Age: 46 years old Clinical indication: Abdominal pain; Additional info: Abd pain TECHNIQUE: Imaging protocol: Computed tomography of the abdomen and pelvis without contrast. Radiation optimization: All CT scans at this facility use at least one of these dose optimization techniques: automated exposure control; mA and/or kV adjustment per patient size (includes targeted exams where dose is matched to clinical indication); or iterative reconstruction. COMPARISON: CR (CHEST, ) 03/28/2022 8:18 PM RADIATION DOSE METRICS: Total DLP (mGy-cm): 845.92 FINDINGS: Liver: Hepatic steatosis and hepatomegaly are noted. No focal lesions. Gallbladder and bile ducts: Normal. No calcified stones. No ductal dilation. Pancreas: Normal. No ductal dilation. Spleen: Normal. No splenomegaly. Adrenal glands: Normal. No mass. Kidneys and ureters: Normal. No hydronephrosis. Stomach and bowel: Unremarkable. No obstruction. No mucosal thickening. Appendix: No evidence of appendicitis. Intraperitoneal space: Unremarkable. No free air. No significant fluid collection. Vasculature: Minimal vascular calcifications are noted. No findings of abdominal aortic aneurysm. Lymph nodes: Unremarkable. No enlarged lymph nodes. Urinary bladder: Unremarkable as visualized. Reproductive: Unremarkable as visualized. Bones/joints: No acute fracture. Soft tissues: Unremarkable. CT/CT abdomen pelvis con [id number] IMPRESSION: No acute findings. Fatty liver and hepatomegaly
--- NOTE | 2022-03-28 20:52 | MRR_ITS ---
PROCEDURE INFORMATION: Exam: MR Thoracic Spine Without Contrast Exam date and time: 03/28/2022 9:59 PM Age: 46 years old Clinical indication: Pain in thoracic spine TECHNIQUE: Imaging protocol: Magnetic resonance imaging of the thoracic spine without contrast. COMPARISON: MR cervical spin wo con* [id number] 03/28/2022 9:41 PM FINDINGS: Bones/joints: Somewhat diminished marrow signal on T1 ; please refer to cervical spine report. Minimal signal abnormality at the anterior inferior corner of T7 likely relates to degenerative change. Schmorl's nodes are most conspicuous at inferior endplates of T11 and T12. Spinal cord: Normal signal. No cord compression. Discs/Spinal canal/Neural foramina: Multilevel degenerative disc changes without evident disc protrusion or extrusion. No significant spinal canal stenosis. Soft tissues: Unremarkable. MR/MR thoracic spin wo con* [id number] IMPRESSION: Marrow signal findings that can be referenced on MRI cervical spine report from same date. Otherwise, no acute findings within the thoracic spine and no findings of spinal canal compromise.
--- NOTE | 2022-03-28 21:34 | PC.NURSE ---
pt taken to MRI via jay
[2022-03-28] MEDS: HYDROmorphone 1 mg/mL INJ 1 mL IVP (22:59)
[2022-03-29] MEDS: piperacillin-tazobactam 3.375 GM in sodium chloride 0.9% (plus) 50 ML IV (00:04)
[2022-03-29] MEDS: vancomycin 1,000 MG in sodium chloride 0.9% 250 ML 250 MG IV (00:26)
[2022-03-29] MEDS: labetalol 5 mg/mL SDV 20mL 10 MG IVP ×2 (00:27→02:01)
[2022-03-29 00:30] VITALS: BP 153/112; PULSE 111; RESP 15; O2SAT 89
[2022-03-29 00:45] VITALS: BP 162/135; PULSE 109; RESP 14; O2SAT 90
[2022-03-29] MEDS: labetalol 5 mg/mL SDV 20mL 20 MG IVP (04:32)
[2022-03-29 06:05] VITALS: BP 134/79; PULSE 114; RESP 19; O2SAT 91
[2022-03-29] MEDS: haloperidol inj 5 mg/mL INJ 1 mL 2 MG IVP (06:34)
[2022-03-29] MEDS: acetaminophen 500 mg Tablet 1000 MG PO (06:34)
[2022-03-29] MEDS: ketorolac 30 mg/mL INJ 15 MG IVP (06:34)
--- NOTE | 2022-03-29 06:44 | PC.NURSE ---
Per pt significant other pt is a daily alcohol user.
[2022-03-29] MEDS: midazolam 1 mg/mL INJ 2 mL 2 MG IVP (06:45)
[2022-03-29 07:08] VITALS: BP 131/87; PULSE 113; RESP 15; O2SAT 90
[2022-03-29 08:02] VITALS: BP 104/87; PULSE 106; RESP 14; O2SAT 91
[2022-03-29 08:36] VITALS: BP 104/87; PULSE 107; RESP 15; O2SAT 92
== END 2022-03-29 08:54 | disposition short-term general hospital (02) ==
PROVIDERS: Emergency Provider Emergency Medicine
DX: M54.50 Low back pain, unspecified (principal)
CPT/HCPCS: 36415; 71045; 72141; 72146; 72148; 74176; 80053; 83690; 85025; 85651; 86140; 87040; 96365; 96367; 96375; 96376; 99285; J1170; J1200; J1630; J1885; J2250; J2543; J2765; J3370; J3490; J7050

== ENCOUNTER → 2022-05-05 14:25 | Outpatient (BNVA) | payer MEDICAID, SELFPAY | PROVIDERS: Visit Provider Orthopaedic Surgery | DX: M47.22 Other spondylosis with radiculopathy, cervical region (principal); Z86.19 Personal history of other infectious and parasitic diseases | CPT/HCPCS: 72050; 72110 ==

== ENCOUNTER 2022-05-28 13:17 | Outpatient (CLI) | payer MEDICAID, SELFPAY ==
--- NOTE | 2022-05-28 13:00 | MR_ITS ---
WS: [id number] MRI CERVICAL SPINE NONCONTRAST HISTORY: Neck pain, RIGHT upper extremity numbness. Progressive changes with no injury. COMPARISON: 03/28/2022 Technique: Multiplanar, multisequence noncontrast imaging of the cervical spine. Straightening of the normal cervical lordosis. Severe disc space narrowing at C6-7 has progressed sin ce the prior study. 2 mm retrolisthesis of C6. There is a very large amount of marrow edema within the C6, C7 and T1 vertebral bodies extending into the posterior elements. Decrease in height of C6-7 disc since the prior examination. Increased T2 signal in the prevertebral soft tissues and the anterior epidural space. Prevertebral soft tissue edema extends from C4 through T2. Prevertebral edema extends to surround the vertebral arteries extends into the neural foramina at C5-6, C6-7 and to a lesser extent C7-T1. Mild thickening of anterior epidural space consistent with developing phlegmonous. C2-C3: Normal. C3-C4: Normal. C4-C5: Normal. C5-C6: Osteophytic ridging. LEFT foraminal disc osteophyte complex. Mild central and RIGHT foraminal stenosis. Moderate LEFT foraminal stenosis. C6-C7: Mild osteophytic ridging. Mild foraminal stenosis. C7-T1: No significant stenosis. MR/MR cervical spin wo con* [id number] IMPRESSION: 1. Significant change in appearance of the cervical spine since the prior stud y of 03/28/2022. 2. On this unenhanced study there is now a large amount of edema within the C6 , C7 and T1 vertebral bodies with progressive loss of height of C6-7 disc. Find ings are highly suspicious for discitis and osteomyelitis. This can be confirme d with postcontrast imaging is thought necessary. 3. Prevertebral abscess/phlegmon in developing from C4 through T2. There is a small abscess pocket measuring 1.9 x 0.6 cm anterior to C7-T1. Extensive edema along the anterior prevertebral space and extending to involve the neural jonathan brianna. 4. Mild soft tissue thickening in the anterior epidural space suspicious for d eveloping phlegmon posterior to C6 and C7. 5. If clinically thought necessary postcontrast MRI imaging may be beneficial. Notified Rubio Wahl DO at 05/28/2022 4:30 PM. Message was left on Dr. Wahl' s cell phone.
--- NOTE | 2022-05-28 13:45 | MR_ITS ---
WS: [id number] MRI LUMBAR SPINE NONCONTRAST HISTORY: Low back pain. RIGHT lower extremity pain. COMPARISON: 03/28/2022 TECHNIQUE: Sagittal and axial multisequence imaging is submitted. Mild straightening of the normal lumbar lordosis. L5 retrolisthesis by 3.9 mm Moderate disc desiccation at L5-S1. No fractures. Conus terminates normally at L1-2 disc level. Moderate central disc protrusion is poorly visualized at T10-11. This disc protrusion does appear to encroach and contact the thoracic cord. Only seen on sagittal survey images. L1-L2: Mild osteophytic ridging. Very mild foraminal narrowing. L2-L3: Mild annular disc bulging and facet arthritis. No significant stenosis. L3-L4: Mild osteophytic ridging and disc bulging with facet and ligamentum flavum arthritis. Mild for aminal stenosis. L4-L5: Mild facet arthritis and foraminal narrowing. No high-grade stenosis. L5-S1: Moderate central disc protrusion extends slightly caudad to the disc level contacting the vent ral thecal sac. There is very mild disc contact on the S1 nerve roots bilaterally. Additional annular disc bulging. There is disc contacting the L5 nerve roots bilaterally but greatest on the RIGHT. Mod erate RIGHT and mild LEFT foraminal stenosis. Similar to the prior study. Paravertebral soft tissues are normal. MR/MR lumbar spine wo con* [id number] IMPRESSION: 1. Moderate central disc protrusion at L5-S1 similar to the prior study. 2. Additional annular disc bulging at L5-S1 contacting the L5 nerve roots bila terally but greatest on the RIGHT. Moderate RIGHT and mild LEFT foraminal steno sis. 3. Central disc protrusion at T10-11. Seen only on survey images. Disc protrus ion does appear to contact the thoracic cord. This disc may have progressed in size since 03/28/2022.
== END 2022-05-28 13:18 | disposition home or self-care (01) ==
LOC: RAD 13:19
PROVIDERS: Visit Provider Orthopaedic Surgery
DX: M54.10 Radiculopathy, site unspecified (principal)
CPT/HCPCS: 72141; 72148

== ENCOUNTER → 2022-06-02 14:27 | Outpatient (BNVA) | payer MEDICAID, SELFPAY | PROVIDERS: Visit Provider Orthopaedic Surgery | DX: Z86.19 Personal history of other infectious and parasitic diseases (principal) | CPT/HCPCS: 85025; 85651; 86140 ==

== ENCOUNTER 2023-08-27 15:09 | Inpatient (IN) | payer MEDICAID, SELFPAY ==
[2023-08-27] VITALS (14 sets, daily range): BP systolic 159–199; BP diastolic 92–158; PULSE 78–109; RESP 16–22; TEMP 36.8–37; O2SAT 92–99; BMI 27.8
--- NOTE | 2023-08-27 15:17 | ECG_ITS ---
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 Measurements Intervals [place] Rate: 92 P: 69 IN: 139 QRS: 57 QRSD: 78 T: 49 QT: 363 QTc: 449 Interpretive Statements SINUS RHYTHM Compared to ECG 07/25/2020 17:25:38 No significant changes Electronically Signed On 08-27-2023 22:01:57 CDT by Juan Hinson M.D. [email or web address] Specialistsmer[facility]Int[facility] [id number]
--- NOTE | 2023-08-27 15:33 | ED_ITS ---
HPI - Alcohol 2 General: Chief Complaint: Alcohol Stated Complaint: alcohol detox Time Seen by Provider: 08/27/23 15:18 Source: patient Mode of arrival: ambulatory Limitations: no limitations History of Present Illness: 48-year-old male has a history of severe alcoholism states he drinks 1/5 of vodka daily states he has been doing this for roughly 30 years states he was kicked out of his girlfriend's house yesterday has not had a drink since yesterday morning and feels like he is going through DTs. He does have a tremor he is tachycardic and hypertensive he states that its prime in 15 years since he had a day without drinking. He has had some nausea as well. Associated symptoms: Reports nausea; Deny abdominal pain or vomiting Review of Systems 2 Const: Denies: fever(s), chills, body aches or change in appetite ENMT: Denies: throat pain or dental pain Card: Denies: chest pain Resp: Denies: dyspnea GI: Reports: nausea; Denies: abdominal pain, vomiting or diarrhea : Denies: dysuria Musc: Denies: neck pain or back pain Skin/Breast: Denies: rash Neuro: Denies: headache(s) PFSH ED 2 PFSH: Medical History No pertinent family history Surgical History No pertinent past surgical history Physical Exam 2 Const: COMMON NORMALS: patient oriented x3 GENERAL APPEARANCE: in distress HENMT: COMMON NORMALS: normocephalic and atraumatic HEAD & SCALP: n ormocephalic and atraumatic Neck/C-Spine: COMMON NORMALS: full ROM and supple Chest: COMMONS NORMALS: normal inspection of the chest Resp: COMMON NORMALS: normal respiratory effort Cardio: COMMON NORMALS: regular rhythm and No murmurs present (Cardio) R ATE: tachycardic RHYTHM: regular rhythm GI: COMMON NORMALS: Normal to inspection, nondistended, normoactive bowel sounds present, Soft to palpation, non-tender and no masses PALPATION: Yes Soft to palpation Extremity: COMMON NORMALS: normal to inspection and full ROM Neuro: COMMON NORMALS: patient oriented x3, moves all extremities and no focal motor deficits Psych: COMMON NORMALS: mental status grossly normal, Normal thought process present and cooperative THOUGHT PROCESS: Normal thought process present Skin: COMMON NORMALS: no rashes or lesions noted and no wounds GENERAL SKIN EXAM: no rashes or lesions noted Course 2 Vital Signs: Vital signs: Vital Signs Temperature 98.2 F 08/27/23 15:13 Pulse Rate 88 08/27/23 15:46 Respiratory Rate 20 H 08/27/23 15:16 Blood Pressure 166/92 08/27/23 15:46 Pulse Oximetry 99 08/27/23 15:46 Oxygen Delivery Me thod Room Air 08/27/23 15:13 MDM - Alcohol Medical Decision Making Patient presents here with alcohol withdrawal as he was hypertensive and tachycardic symptoms have improved here with Ativan doses. I spoke to the hospitalist and will admit at this time. Medical Records I reviewed the patient's medical records. Lab Data I reviewed the patient's lab results. 08/27/23 15:40 08/27/23 15:40 Laboratory Results WBC 6.76 10^3/uL (3.29-11.43) 08/27/23 15:40 RBC 4.57 10^6/uL (3.85-5.65) 08/27/23 15:40 Hgb 15.40 g/dL (11.27-16.99) 08/27/23 15:40 Hct 43.9 % (37-53) 08/27/23 15:40 MCV 96.1 fl (82-101) 08/27/23 15:40 MCH 33.7 pg (27-33) H 08/27/23 15:40 MCHC 35.1 g/dL (30-55) 08/27/23 15:40 RDW 12.6 % (12.1-15.1) 08/27/23 15:40 Plt Count 195 10^3/cmm (157-399) 08/27/23 15:40 MPV 11.5 fL (7.4-10.4) H 08/27/23 15:40 Neut % (Auto) 76.5 % 08/27/23 15:40 Lymph % (Auto) 13.8 % 08/27/23 15:40 [place] % (Auto) 8.1 % 08/27/23 15:40 Eos % (Auto) 0.4 % 08/27/23 15:40 Baso % (Auto) 0.9 % 08/27/23 15:40 Neut # (Auto) 5.17 10^3/uL (1.8-7.7) 08/27/23 15:40 Lymph # (Auto) 0.9 10^3/uL (0.8-4.8) 08/27/23 15:40 [place] # (Auto) 0.6 10^3/uL (0.2-0.9) 08/27/23 15:40 Eos # (Auto) 0.0 10^3/uL (0.0-0.8) 08/27/23 15:40 Baso # (Auto) 0.1 10^3/uL (0.0-0.1) 08/27/23 15:40 Nucleated RBC % (auto) 0 % 08/27/23 15:40 Nucleated RBCs # 0.0 /100WBC 08/27/23 15:40 Sodium 140 mmol/L (136-145) 08/27/23 15:40 Potassium 3.6 mmol/L (3.5-5.1) 08/27/23 15:40 Chloride 98 mmol/L (98-107) 08/27/23 15:40 Carbon Dioxide 23 mmol/L (22-29) 08/27/23 15:40 Anion Gap 22.6 (5-19) H 08/27/23 15:40 BUN 9 mg/dL (6-20) 08/27/23 15:40 Creatinine 0.7 mg/dL (0.7-1.2) 08/27/23 15:40 GFR Calculation 121.4 mL/min (90-130) 08/27/23 15:40 Glucose 128 mg/dL (65-115) H 08/27/23 15:40 Calculated Osmolality 290 mOsm/kg (285-295) 08/27/23 15:40 Calcium 10.1 mg/dL (8.5-10.5) 08/27/23 15:40 Total Bilirubin 1.0 mg/dL (0.15-1.2) 08/27/23 15:40 AST 207 U/L (0-40) H 08/27/23 15:40 ALT 177 U/L (0-41) H 08/27/23 15:40 Alkaline Phosphatase 152 U/L (40-130) H 08/27/23 15:40 Total Protein 8.3 g/dL (6.6-8.7) 08/27/23 15:40 Albumin 4.9 g/dL (3.5-5.2) 08/27/23 15:40 Globulin 3.4 g/dL (1.3-4.6) 08/27/23 15:40 Salicylates < 0.3 mg/dL (3-10) L 08/27/23 15:40 Urine Opiates Screen Negative ng/mL (Negative) 08/27/23 15:40 Acetaminophen < 5.0 ug/mL (10-30) L 08/27/23 15:40 Ur Barbiturates Screen Negative ng/mL (Negative) 08/27/23 15:40 Ur Phencyclidine Scrn Negative ng/mL (Negative) 08/27/23 15:40 Ur Amphetamines Screen Negative ng/mL (Negative) 08/27/23 15:40 U Benzodiazepines Scrn Positive ng/mL (Negative) H 08/27/23 15:40 Urine Cocaine Screen Negative ng/mL (Negative) 08/27/23 15:40 U Marijuana (THC) Screen Positive ng/mL (Negative) H 08/27/23 15:40 Ethyl Alcohol < 10 mg/dL (0-10) 08/27/23 15:40 All radiology interpretation(s) finalized by discharge EKG Data EKG 1: I personally reviewed and interpreted this EKG as follows: EKG interpretation date: 08/27/23 EKG interpretation time: 14:38 Interpretation: nsr hr [address] or t wave abnormalities qrs 78 qtc 412 Critical Care Time 2 Critical Care Time: Critical Care Time: Yes Total Critical Care Time: 45 Attestation: The high probability of a clinically significant, sudden or life threatening deterioration of the patient's cv system(s) required my full and direct attention, intervention and personal management. The critical care time is as shown. This time is in addition to time spent performing any reported procedures but includes the following: [x] Data and vital sign review and interpretation [x] Patient assessment, examination and intervention [x] Documentation [x] Medication orders and management Discharge Plan Discharge Patient Disposition: Admitted As Inpatient Clinical Impression: Alcohol withdrawal syndrome Condition: Stable Prescriptions: No Action Prilosec 40 mg Capsule,Delayed Release(Dr/Ec) 40 mg PO BEDTIME PRN (Reason: Heartburn) losartan 25 mg Tablet 25 mg PO BEDTIME PRN (Reason: Blood Pressure) ibuprofen 200 mg Tablet 800 mg PO Q6H PRN (Reason: Pain) Crestor 10 mg Tablet 10 mg PO BEDTIME PRN (Reason: unknown) BC Pain Relief 845-65 mg Powder In Packet 1 ea PO DAILY PRN (Reason: Pain) Referrals: Karen Menchaca FNP [Primary Care Provider] - Coding Level of Care Code ED [employer] for Jt Sow
[2023-08-27] MEDS: LORazepam 2 mg/mL INJ 10 mL MDV IVP ×2 (15:35→16:32)
[2023-08-27] MEDS: sodium chloride 0.9% 1,000 ML 999 ML IV (15:35)
[2023-08-27 15:53] LABS: Basophils # 0.1 10^3/uL (0.0-0.1); Basophils % 0.9 %; Eosinophils % 0.4 %; Hematocrit 43.9 % (37-53); Lymphocytes # 0.9 10^3/uL (0.8-4.8); Lymphocytes % 13.8 %; Mean Corpuscular HGB Conc 35.1 g/dL (30-55); Mean Corpuscular Hemoglobin 33.7 pg (27-33); Mean Corpuscular Volume 96.1 fl (82-101); Mean Platelet Volume 11.5 fL (7.4-10.4); Monocytes # 0.6 10^3/uL (0.2-0.9); Monocytes % 8.1 %; Neutrophils # 5.17 10^3/uL (1.8-7.7); Neutrophils % 76.5 %; Nucleated Red Blood Cells % 0 %; Platelet Count 195 10^3/cmm (157-399); Red Blood Count 4.57 10^6/uL (3.85-5.65); Red Cell Distribution Width 12.6 % (12.1-15.1); White Blood Count 6.76 10^3/uL (3.29-11.43)
[2023-08-27 16:00] LABS: Amphetamines Screen Urine Negative (Negative); Barbiturates Screen Urine Negative (Negative); Benzodiazepines Screen Urine Positive (Negative); Cocaine Screen Urine Negative (Negative); Opiate Screen Urine Negative (Negative); PCP Screen Urine Negative (Negative); THC Screen Urine Positive (Negative)
--- NOTE | 2023-08-27 16:09 | PC.PHAR ---
pt states he takes all his meds as prn- pt states he takes them for a few days and then wont take them till he starts to feel bad again-pt states was on lisinopril 10mg daily but states the dr changed to losartan 25mg -pt states he thought he had some kind of liver pill unsure of the name of it [facility] states they have only filled the crestor,losartan and prilosec
[2023-08-27 16:10] LABS: Acetaminophen < 5.0 ug/mL (10-30); Alanine Aminotransferase 177 U/L (0-41); Albumin Level 4.9 g/dL (3.5-5.2); Alcohol Level < 10 mg/dL (0-10); Alkaline Phosphatase 152 U/L (40-130); Anion Gap 22.6 (5-19); Aspartate Amino Transferase 207 U/L (0-40); Blood Urea Nitrogen 9 mg/dL (6-20); Calcium 10.1 mg/dL (8.5-10.5); Carbon Dioxide 23 mmol/L (22-29); Chloride 98 mmol/L (98-107); Creatinine Clr Calc Pharmacy 151.9428; Globulin 3.4 g/dL (1.3-4.6); Glomerular Filtration Rate 121.4 mL/min (90-130); Glucose 128 mg/dL (65-115); Osmolality Calculated 290 mOsm/kg (285-295); Potassium 3.6 mmol/L (3.5-5.1); Salicylate < 0.3 mg/dL (3-10); Sodium 140 mmol/L (136-145); Total Protein 8.3 g/dL (6.6-8.7)
--- NOTE | 2023-08-27 16:42 | P.HP_ITS ---
Providers/Chief Complaint 2 Primary Care Provider: SHO Queen Chief Complaint: alcohol detox History of Present Illness Enoch Barahona is a 48 year old male with a past medical history of hyperlipidemia, GERD, history of alcoholism, who presents to [facility] as he is undergoing alcohol withdrawals. Patient reports that he has a prior history of alcoholism, he has been in a rehab program, in the past, he recently broke up with his girlfriend, and he is homeless currently, his last drink of alcohol was yesterday morning he had a whole bottle of vodka, he normally drinks 1/5 of vodka, currently having tremors, feeling anxious, denies any visual auditory or tactile hallucinations, no chest pain but does not report palpitations, does feel nauseous, he is gone through alcohol withdrawals before, no history of delirium tremens, no history of hematemesis, no history of esophageal varices Review of Systems 2 Card: Reports: palpitations; Denies: chest pain Resp: Denies: dyspnea GI: Denies: abdominal pain Neuro: Denies: headache(s) Medications/Allergies Home Medications Medication Instructions Recorded Confirmed Last Taken Type aspirin-caffeine 845 mg-65 mg oral 1 ea PO DAILY PRN Pain 08/27/23 08/27/23 Unknown History powder packet (BC Pain Relief) ibuprofen 200 mg tablet 800 mg PO Q6H PRN Pain 08/27/23 08/27/23 Unknown History losartan 25 mg tablet 25 mg PO BEDTIME PRN Blood Pressure 08/27/23 08/27/23 2 Days Ago History ~08/25/23 see pharmacy comment omeprazole 40 mg capsule,delayed 40 mg PO BEDTIME PRN Heartburn 08/27/23 08/27/23 Unknown History release rosuvastatin 10 mg tablet (Crestor) 10 mg PO BEDTIME PRN unknown 08/27/23 08/27/23 Unknown History Allergies Allergy/AdvReac Type Severity Reaction Status Date / Time No Known Allergies Allergy Verified 08/27/23 15:16 PFSH Acute 2 PFSH: Medical History (Updated 08/27/23 @ 16:47 by Flavio Fabian MD) Alcohol withdrawal syndrome No pertinent family history Surgical History No pertinent past surgical history Family History (Updated 08/27/23 @ 16:46 by Flavio Fabian MD) Mother CAD (coronary artery disease) Social History (Updated 08/27/23 @ 16:46 by Flavio Fabian MD) Smoking and tobacco/nicotine status: never used tobacco/nicotine Alcohol intake: current Alcohol intake frequency: 3 or more drinks per day Substance/Drug Use: current Substance/Drug use type: Marijuana Vitals/I&O/Wt Last Vital Signs Temp 98.2 F 08/27/23 15:13 Pulse 82 08/27/23 16:16 Resp 20 H 08/27/23 15:16 BP 175/108 08/27/23 16:16 Pulse Ox 97 08/27/23 16:16 O2 Del Method Room Air 08/27/23 16:16 08/27/23 08/27/23 08/27/23 06:59 14:59 22:59 Intake Total 1000 / 1000 Balance 1000 / 1000 Weight last 48 hrs Weight 90.718 kg Physical Exam 2 Const: COMMON NORMALS: no acute distress and patient oriented x3 HENMT: COMMON NORMALS: normocephalic HEAD & SCALP: normocephalic Eye: COMMON NORMALS: Equal, round and reactive pupils present and EOMs intact bilaterally Neck/C-Spine: COMMON NORMALS: no JVD Resp: COMMON NORMALS: normal respiratory effort, No retractions, No use of accessory muscles and clear to auscultation bilaterally AUSCULTATION: clear to auscultation bilaterally Cardio: COMMON NORMALS: regular rate, regular rhythm, S1 normal heart sound present and S2 normal heart sound present RATE: tachycardic RHYTHM: r egular rhythm HEART SOUNDS: S1 normal heart sound present and S2 normal heart sound present GI: COMMON NORMALS: Normal to inspection, nondistended, normoactive bowel sounds present, Soft to palpation, non-tender and No hepatosplenomegaly present Extremity: COMMON NORMALS: no calf tenderness and no pedal edema Neuro: COMMON NORMALS: patient oriented x3, CN's II-XII intact bilaterally and moves all extremities Psych: COMMON NORMALS: mental status grossly normal Data 08/27/23 15:40 08/27/23 15:40 A&P Assessment and plan (1) Alcohol withdrawal syndrome: Plan Alcohol withdrawal -Check urine toxicology screen -Liver function -[facility] protocol -Will place on scheduled Librium 50 mg every 6 hours -Banana bag -Thiamine, folic acid -Full code -Lovenox for DVT prophylaxis Attestations 2 Medical Necessity Statement*: Patient requires hospitalization inpatient, greater than 2 midnights, for alcohol withdrawal Diagnoses Alcohol withdrawal syndrome F10.939
[2023-08-27 17:16] LABS: Partial Thromboplastin Time 26.4 SECONDS (23.9-36.7)
[2023-08-27 18:44] LABS: Chol HDL Ratio 3.64 mg/dL (1.0-5.00); Cholesterol 240 mg/dL (0-200); HDL Cholesterol 66 mg/dL (60-100); LDL Cholesterol Calculated 158 mg/dL (50-129); LDL HDL Ratio 2.39 RATIO (0.00-3.22); Lipase 52 U/L (13-60); Triglycerides 81 mg/dL (0-150)
[2023-08-27] MEDS: enoxaparin 40 mg/0.4 mL Syringe SUBCUT (18:45)
[2023-08-27] MEDS: chlordiazePOXIDE 25 mg Capsule 50 MG PO (18:46)
[2023-08-27] MEDS: pantoprazole 40 mg SDV IVP (18:46)
[2023-08-27] MEDS: sodium chloride 0.9% 1,000 ML 75 ML IV (18:47)
[2023-08-27 19:00] LABS: Thyroid Stimulating Hormone 1.84 uIU/mL (0.27-4.20)
[2023-08-27 20:11] LABS: Estmated Average Glucose 105; Hemoglobin A1C 5.3 % (4.0-6.0)
[2023-08-27] MEDS: nicotine 21 mg Patch 1 PATCH TRANSDERMA (20:15)
[2023-08-27] MEDS: folic acid 1 MG, multivitamin inj 10 ML, thiamine 100 MG in sodium chloride 0.9% 1,000 ML 252.800000000000011 MG IV (20:15)
[2023-08-27] MEDS: LORazepam 2 mg Tablet PO (20:56)
[2023-08-28] VITALS (10 sets, daily range): BP systolic 147–168; BP diastolic 94–122; PULSE 69–96; RESP 15–18; TEMP 36.4–36.9; O2SAT 92–93
[2023-08-28] MEDS: chlordiazePOXIDE 25 mg Capsule 50 MG PO ×3 (00:24→12:09)
[2023-08-28 03:55] LABS: Basophils # 0.1 10^3/uL (0.0-0.1); Basophils % 0.9 %; Eosinophils # 0.3 10^3/uL (0.0-0.8); Eosinophils % 5.4 %; Hematocrit 37.7 % (37-53); Lymphocytes # 1.5 10^3/uL (0.8-4.8); Lymphocytes % 27.2 %; Mean Corpuscular HGB Conc 34.7 g/dL (30-55); Mean Corpuscular Volume 97.9 fl (82-101); Mean Platelet Volume 11.6 fL (7.4-10.4); Monocytes # 0.5 10^3/uL (0.2-0.9); Monocytes % 8.3 %; Neutrophils # 3.22 10^3/uL (1.8-7.7); Nucleated Red Blood Cells % 0 %; Platelet Count 174 10^3/cmm (157-399); Red Blood Count 3.85 10^6/uL (3.85-5.65); Red Cell Distribution Width 12.6 % (12.1-15.1); White Blood Count 5.55 10^3/uL (3.29-11.43)
[2023-08-28 04:28] LABS: Alanine Aminotransferase 125 U/L (0-41); Alkaline Phosphatase 120 U/L (40-130); Anion Gap 15.9 (5-19); Aspartate Amino Transferase 116 U/L (0-40); Blood Urea Nitrogen 6 mg/dL (6-20); Calcium 8.2 mg/dL (8.5-10.5); Carbon Dioxide 21 mmol/L (22-29); Chloride 106 mmol/L (98-107); Creatinine Clr Calc Pharmacy 177.2666; Globulin 2.3 g/dL (1.3-4.6); Glucose 80 mg/dL (65-115); Magnesium 1.5 mg/dL (1.7-2.3); Osmolality Calculated 287 mOsm/kg (285-295); Phosphorus 2.8 mg/dL (2.5-4.5); Sodium 140 mmol/L (136-145); Total Bilirubin 0.8 mg/dL (0.15-1.2); Total Protein 6.3 g/dL (6.6-8.7)
[2023-08-28 04:47] LABS: Potassium 2.9 mmol/L (3.5-5.1)
[2023-08-28] MEDS: potassium chloride ER 20 mEq Tablet 40 MEQ PO (06:32)
[2023-08-28] MEDS: sodium chloride 0.9% 1,000 ML 75 ML IV ×2 (06:48→20:36)
[2023-08-28] MEDS: multivitamin therapeutic Tablet 1 TAB PO (08:57)
[2023-08-28] MEDS: thiamine 100 mg Tablet PO (08:57)
[2023-08-28] MEDS: magnesium oxide 400 mg tablet PO ×2 (08:57→18:49)
[2023-08-28] MEDS: folic acid 1 mg Tablet PO (08:57)
[2023-08-28] MEDS: losartan 50 mg Tablet 25 MG PO (12:10)
[2023-08-28] MEDS: nicotine 21 mg Patch 1 PATCH TRANSDERMA (14:36)
--- NOTE | 2023-08-28 15:04 | P.PN_ITS ---
Subjective 2 Subjective: Patient was seen this morning, continues to have mild tremor, no fevers overnight, no cough, no lightheadedness, no dizziness, denies seeing hearing things are not there, does report anxiety Vitals/I&O/Wt Last Vital Signs Temp 98.4 F 08/28/23 07:54 Pulse 96 08/28/23 12:00 Resp 16 08/28/23 09:53 BP 147/102 08/28/23 07:54 Pulse Ox 92 08/28/23 09:53 O2 Del Method Room Air 08/28/23 09:53 FiO2 21 08/27/23 19:17 08/28/23 08/28/23 08/28/23 06:59 14:59 22:59 Intake Total 2512.45 / 3512.45 460 / 460 Output Total 100 / 100 Balance 2512.45 / 3512.45 360 / 360 Weight last 48 hrs Weight 91.852 kg Weight 90.718 kg Weight 90.718 kg Physical Exam 2 Const: COMMON NORMALS: no acute distress and patient oriented x3 Resp: COMMON NORMALS: normal respiratory effort, No retractions, No use of accessory muscles and clear to auscultation bilaterally AUSCULTATION: clear to auscultation bilaterally Cardio: COMMON NORMALS: regular rate, regular rhythm, S1 normal heart sound present and S2 normal heart sound present RATE: regular rate RHYTHM: r egular rhythm HEART SOUNDS: S1 normal heart sound present and S2 normal heart sound present GI: COMMON NORMALS: Normal to inspection, nondistended, normoactive bowel sounds present and non-tender Extremity: COMMON NORMALS: no pedal edema Neuro: COMMON NORMALS: patient oriented x3 Psych: COMMON NORMALS: mental status grossly normal Data 08/28/23 03:40 08/28/23 03:40 A&P Assessment and plan (1) Alcohol withdrawal syndrome: Plan Alcohol withdrawal -Check urine toxicology screen, positive for marijuana -Monitor electrolytes -[facility] protocol -Will place on scheduled Librium 25 mg every 6 hours -Thiamine, folic acid -Full code -Lovenox for DVT prophylaxis Attestations 2 Medical Necessity Statement*: Patient requires hospitalization, for alcohol withdrawal syndrome Diagnoses Alcohol withdrawal syndrome F11.468
[2023-08-28] MEDS: pantoprazole 40 mg SDV IVP (18:49)
[2023-08-28] MEDS: chlordiazePOXIDE 25 mg Capsule PO (18:49)
[2023-08-28] MEDS: enoxaparin 40 mg/0.4 mL Syringe SUBCUT (18:49)
[2023-08-28] MEDS: LORazepam 2 mg Tablet PO (21:43)
[2023-08-29] VITALS (10 sets, daily range): BP systolic 137–156; BP diastolic 75–107; PULSE 76–108; RESP 12–21; TEMP 36.4–37.1; O2SAT 91–99
[2023-08-29] MEDS: chlordiazePOXIDE 25 mg Capsule PO ×5 (00:24→23:55)
[2023-08-29 04:36] LABS: Basophils % 0.8 %; Eosinophils # 0.4 10^3/uL (0.0-0.8); Eosinophils % 7.2 %; Hematocrit 39.3 % (37-53); Lymphocytes # 1.5 10^3/uL (0.8-4.8); Mean Corpuscular HGB Conc 34.4 g/dL (30-55); Mean Platelet Volume 11.5 fL (7.4-10.4); Monocytes # 0.4 10^3/uL (0.2-0.9); Monocytes % 7.8 %; Neutrophils # 2.77 10^3/uL (1.8-7.7); Nucleated Red Blood Cells % 0 %; Platelet Count 162 10^3/cmm (157-399); Red Blood Count 3.97 10^6/uL (3.85-5.65); Red Cell Distribution Width 12.6 % (12.1-15.1); White Blood Count 5.13 10^3/uL (3.29-11.43)
[2023-08-29 04:59] LABS: Alanine Aminotransferase 129 U/L (0-41); Albumin Level 3.9 g/dL (3.5-5.2); Alkaline Phosphatase 120 U/L (40-130); Anion Gap 17.1 (5-19); Aspartate Amino Transferase 148 U/L (0-40); Blood Urea Nitrogen 7 mg/dL (6-20); Calcium 8.6 mg/dL (8.5-10.5); Carbon Dioxide 21 mmol/L (22-29); Chloride 103 mmol/L (98-107); Creatinine Clr Calc Pharmacy 178.2536; Globulin 2.4 g/dL (1.3-4.6); Glucose 75 mg/dL (65-115); Magnesium 1.6 mg/dL (1.7-2.3); Osmolality Calculated 283 mOsm/kg (285-295); Phosphorus 3.4 mg/dL (2.5-4.5); Potassium 3.1 mmol/L (3.5-5.1); Sodium 138 mmol/L (136-145); Total Bilirubin 0.6 mg/dL (0.15-1.2); Total Protein 6.3 g/dL (6.6-8.7)
[2023-08-29] MEDS: magnesium oxide 400 mg tablet PO ×2 (09:10→17:48)
[2023-08-29] MEDS: thiamine 100 mg Tablet PO (09:10)
[2023-08-29] MEDS: losartan 50 mg Tablet 25 MG PO (09:10)
[2023-08-29] MEDS: multivitamin therapeutic Tablet 1 TAB PO (09:10)
[2023-08-29] MEDS: folic acid 1 mg Tablet PO (09:10)
[2023-08-29] MEDS: potassium chloride ER 20 mEq Tablet 40 MEQ PO (09:14)
--- NOTE | 2023-08-29 13:48 | P.PN_ITS ---
Subjective 2 Subjective: Patient was seen this morning, he continues to have mild intermittent tremors, no fevers, no chills, no cough Vitals/I&O/Wt Last Vital Signs Temp 97.6 F 08/29/23 11:19 Pulse 86 08/29/23 11:19 Resp 17 08/29/23 11:19 BP 153/92 08/29/23 11:19 Pulse Ox 99 08/29/23 07:25 O2 Del Method Nasal Cannula 08/29/23 07:25 O2 Flow Rate 1 08/29/23 04:00 FiO2 21 08/27/23 19:17 08/28/23 08/29/23 08/29/23 22:59 06:59 14:59 Intake Total 1000 / 1460 1476 / 1476 Output Total 1250 / 1350 Balance -250 / 110 1476 / 1476 Weight last 48 hrs Weight 91.626 kg Weight 91.852 kg Weight 90.718 kg Weight 90.718 kg Physical Exam 2 Const: COMMON NORMALS: no acute distress and patient oriented x3 Resp: COMMON NORMALS: normal respiratory effort, No retractions, No use of accessory muscles and clear to auscultation bilaterally AUSCULTATION: clear to auscultation bilaterally Cardio: COMMON NORMALS: regular rate, regular rhythm, S1 normal heart sound present and S2 normal heart sound present RATE: regular rate RHYTHM: r egular rhythm HEART SOUNDS: S1 normal heart sound present and S2 normal heart sound present GI: COMMON NORMALS: Normal to inspection, nondistended, normoactive bowel sounds present and non-tender Extremity: COMMON NORMALS: no pedal edema Neuro: COMMON NORMALS: patient oriented x3 Psych: COMMON NORMALS: mental status grossly normal Data 08/29/23 04:20 08/29/23 04:20 A&P Assessment and plan (1) Alcohol withdrawal syndrome: Plan Alcohol withdrawal -Check urine toxicology screen, positive for marijuana -Monitor electrolytes -[place] protocol -Will place on scheduled Librium 25 mg every 6 hours -Thiamine, folic acid -Full code -Lovenox for DVT prophylaxis Attestations 2 Medical Necessity Statement*: Patient requires hospitalization for alcohol withdrawal Diagnoses Alcohol withdrawal syndrome F10.468
[2023-08-29] MEDS: amlodipine 10 mg Tablet PO (14:55)
[2023-08-29] MEDS: pantoprazole 40 mg SDV IVP (17:48)
[2023-08-29] MEDS: enoxaparin 40 mg/0.4 mL Syringe SUBCUT (17:49)
[2023-08-29] MEDS: nicotine 21 mg Patch 1 PATCH TRANSDERMA (21:08)
[2023-08-30] VITALS (63 sets, daily range): BP systolic 122–157; BP diastolic 81–101; PULSE 70–93; RESP 13–28; TEMP 36.3–36.8; O2SAT 92–100
[2023-08-30 04:59] LABS: Basophils % 0.7 %; Eosinophils # 0.4 10^3/uL (0.0-0.8); Eosinophils % 6.5 %; Lymphocytes # 1.7 10^3/uL (0.8-4.8); Lymphocytes % 30.6 %; Mean Corpuscular HGB Conc 33.5 g/dL (30-55); Mean Corpuscular Hemoglobin 33.8 pg (27-33); Mean Corpuscular Volume 100.9 fl (82-101); Mean Platelet Volume 12.2 fL (7.4-10.4); Monocytes # 0.5 10^3/uL (0.2-0.9); Monocytes % 8.3 %; Neutrophils # 2.88 10^3/uL (1.8-7.7); Neutrophils % 53.5 %; Nucleated Red Blood Cells % 0 %; Platelet Count 170 10^3/cmm (157-399); Red Blood Count 4.26 10^6/uL (3.85-5.65); Red Cell Distribution Width 12.8 % (12.1-15.1); White Blood Count 5.39 10^3/uL (3.29-11.43)
[2023-08-30] MEDS: chlordiazePOXIDE 25 mg Capsule PO ×3 (05:21→20:20)
[2023-08-30 05:25] LABS: Alanine Aminotransferase 159 U/L (0-41); Albumin Level 4.2 g/dL (3.5-5.2); Alkaline Phosphatase 132 U/L (40-130); Anion Gap 14.3 (5-19); Aspartate Amino Transferase 172 U/L (0-40); Blood Urea Nitrogen 10 mg/dL (6-20); Calcium 9.5 mg/dL (8.5-10.5); Carbon Dioxide 24 mmol/L (22-29); Chloride 103 mmol/L (98-107); Creatinine Clr Calc Pharmacy 152.6202; Globulin 2.8 g/dL (1.3-4.6); Glomerular Filtration Rate 121.4 mL/min (90-130); Glucose 92 mg/dL (65-115); Magnesium 1.9 mg/dL (1.7-2.3); Osmolality Calculated 285 mOsm/kg (285-295); Potassium 3.3 mmol/L (3.5-5.1); Sodium 138 mmol/L (136-145); Total Bilirubin 0.5 mg/dL (0.15-1.2)
[2023-08-30] MEDS: potassium chloride ER 20 mEq Tablet 40 MEQ PO (09:04)
[2023-08-30] MEDS: multivitamin therapeutic Tablet 1 TAB PO (09:04)
[2023-08-30] MEDS: losartan 50 mg Tablet 25 MG PO (09:04)
[2023-08-30] MEDS: thiamine 100 mg Tablet PO (09:04)
[2023-08-30] MEDS: folic acid 1 mg Tablet PO (09:04)
[2023-08-30] MEDS: amlodipine 10 mg Tablet PO (09:04)
[2023-08-30] MEDS: magnesium oxide 400 mg tablet PO ×2 (09:04→18:33)
--- NOTE | 2023-08-30 09:41 | PC.CHAP ---
Pastoral Care Encounter/Spiritual Assessment Type of Contact [] Declined shuttle final inspector visit [] Patient/Family/Request visit [] Outpatient visit [] Follow-up visit [] Physician referral [] Code/Alert [x] Routine visit [] Staff referral [] Actively dying [] Patient sleeping [] Family support [] [] Out of room [] Palliative care [] [] Receiving care in room [] Pre-surgical visit [] Trauma [] Long length of stay [] ICU visit [] Other: Relational/Emotional Strength [] Patient feels connected with others/family/visitors/staff [] Distress [] Loneliness/isolation [] Abandonment Spirituality of Patient [x] Person of Jolie [] Attends Pentecostal of their Jolie [x] Believes in Prayer [] Reads Bible or Buddhism materials [] There are Spiritual issues to be addressed Geospatial Intelligence Analyst Interventions [x] Prayer [x] Active listening [] Non-anxious presence [] Spiritual/emotional support [] Crisis/trauma care [] Spiritual counseling [] Bereavement support [] Provided bereavement packet [] Provided Bible/devotional materials [] Provided toy/stuffed animal, coloring book to patient or family member [] Provided Communion [] Anointing/Mertzon [] Salvation [x] Completed spiritual assessment [] Other: Impact on Illness or Injury [] Angry [] Fearful [] Anxious [] Often cries [] Exhaustion [] Unable to work [] Unable to attend advent [] Unable to walk/stand [] Unable to read [] Unable to drive [] Unable to eat/drink [] Unable to sleep [] Unable to be with family [] Patient intubated [] Other: Summary gave literature Time spent with patient 10min
--- NOTE | 2023-08-30 10:25 | PC.NURSE ---
;Noticed pt talking on the phone and fully dressed. Have been talking to SS about pt being homeless and they said that they would come back to see him as there are other issues involved with his case. Pt has been here all weekend for CIWA protocol and may be an elopement risk. Notified auditor in charge.
--- NOTE | 2023-08-30 10:38 | PC.NURSE ---
Pt continues to talk on the phone. Pt fully clothed at this time with suitcase on his bed. Will notify dept director.
--- NOTE | 2023-08-30 11:24 | PM.PN ---
Subjective Subjective: Patient was seen this morning, he continues to have mild tremors, denies any fevers, no chills, no cough, he does tell me that he had a scary dream last night, that woke him up, Vitals/I&O/Wt Last Vital Signs Temp 97.4 F L 08/30/23 08:00 Pulse 88 08/30/23 08:00 Resp 16 08/30/23 08:00 BP 154/94 08/30/23 08:00 Pulse Ox 95 08/30/23 08:00 O2 Del Method Room Air 08/30/23 04:00 O2 Flow Rate 1 08/29/23 04:00 FiO2 21 08/27/23 19:17 08/29/23 08/30/23 08/30/23 22:59 06:59 14:59 Intake Total 240 / 1716 360 / 360 Output Total 0 / 0 0 / 0 Balance 240 / 1716 0 / 1716 360 / 360 Weight last 48 hrs Weight 88.451 kg Weight 91.626 kg Physical Exam Const: COMMON NORMALS: no acute distress and patient oriented x3 Resp: COMMON NORMALS: normal respiratory effort, No retractions, No use of accessory muscles and clear to auscultation bilaterally AUSCULTATION: clear to auscultation bilaterally Cardio: COMMON NORMALS: regular rate, regular rhythm, S1 normal heart sound present and S2 normal heart sound present RATE: regular rate RHYTHM: regular rhythm HEART SOUNDS: S1 normal heart sound present and S2 normal heart sound present GI: COMMON NORMALS: Normal to inspection, nondistended, normoactive bowel sounds present and non-tender Extremity: COMMON NORMALS: no pedal edema Neuro: COMMON NORMALS: patient oriented x3 Psych: COMMON NORMALS: mental status grossly normal Data 08/30/23 04:05 08/30/23 04:05 A&P Assessment and plan (1) Alcohol withdrawal syndrome: Plan Alcohol withdrawal -Check urine toxicology screen, positive for marijuana -Monitor electrolytes -[facility] protocol -Will place on scheduled Librium 25 mg every 8 hours -Thiamine, folic acid -Full code -Lovenox for DVT prophylaxis Attestations Medical Necessity Statement*: Patient requires hospitalization for alcohol withdrawal, still having mild withdrawal symptoms, [facility] [place], Diagnoses Alcohol withdrawal syndrome N02.463
[2023-08-30] MEDS: cloNIDine 0.1 mg Tablet 0.100000000000000006 MG PO (14:55)
[2023-08-30] MEDS: pantoprazole 40 mg SDV IVP (18:33)
[2023-08-30] MEDS: enoxaparin 40 mg/0.4 mL Syringe SUBCUT (18:33)
[2023-08-31] VITALS (12 sets, daily range): BP systolic 109–132; BP diastolic 65–81; PULSE 65–97; RESP 16–18; TEMP 36.5–36.6; O2SAT 95–98
[2023-08-31] MEDS: cloNIDine 0.1 mg Tablet 0.100000000000000006 MG PO ×2 (02:58→14:39)
[2023-08-31] MEDS: chlordiazePOXIDE 25 mg Capsule PO ×3 (02:58→18:22)
[2023-08-31 05:15] LABS: Basophils # 0.1 10^3/uL (0.0-0.1); Eosinophils # 0.4 10^3/uL (0.0-0.8); Eosinophils % 7.2 %; Hematocrit 39.6 % (37-53); Lymphocytes # 1.8 10^3/uL (0.8-4.8); Lymphocytes % 31.7 %; Mean Corpuscular HGB Conc 33.3 g/dL (30-55); Mean Corpuscular Hemoglobin 33.8 pg (27-33); Mean Corpuscular Volume 101.3 fl (82-101); Mean Platelet Volume 11.5 fL (7.4-10.4); Monocytes # 0.5 10^3/uL (0.2-0.9); Monocytes % 9.3 %; Neutrophils # 2.94 10^3/uL (1.8-7.7); Neutrophils % 50.6 %; Nucleated Red Blood Cells % 0 %; Platelet Count 186 10^3/cmm (157-399); Red Blood Count 3.91 10^6/uL (3.85-5.65); White Blood Count 5.81 10^3/uL (3.29-11.43)
[2023-08-31 05:56] LABS: Anion Gap 15.8 (5-19); Blood Urea Nitrogen 11 mg/dL (6-20); Calcium 9.6 mg/dL (8.5-10.5); Carbon Dioxide 22 mmol/L (22-29); Chloride 108 mmol/L (98-107); Glucose 103 mg/dL (65-115); Osmolality Calculated 294 mOsm/kg (285-295); Potassium 3.8 mmol/L (3.5-5.1); Sodium 142 mmol/L (136-145)
[2023-08-31 06:13] LABS: Creatinine Clr Calc Pharmacy 211.9209
[2023-08-31] MEDS: amlodipine 10 mg Tablet PO (08:37)
[2023-08-31] MEDS: magnesium oxide 400 mg tablet PO ×2 (08:37→17:28)
[2023-08-31] MEDS: thiamine 100 mg Tablet PO (08:37)
[2023-08-31] MEDS: folic acid 1 mg Tablet PO (08:37)
[2023-08-31] MEDS: multivitamin therapeutic Tablet 1 TAB PO (08:37)
[2023-08-31] MEDS: losartan 50 mg Tablet 25 MG PO (08:37)
--- NOTE | 2023-08-31 11:53 | P.PN_ITS ---
Subjective 2 Subjective: Patient was seen this morning, currently having minimal withdrawal symptoms, no fevers, no chills, no chest pain, no palpitations Vitals/I&O/Wt Last Vital Signs Temp 97.8 F 08/31/23 07:43 Pulse 75 08/31/23 07:43 Resp 17 08/31/23 07:43 BP 128/76 08/31/23 08:37 Pulse Ox 95 08/31/23 07:43 O2 Del Method Room Air 08/31/23 07:43 O2 Flow Rate 1 08/29/23 04:00 FiO2 21 08/27/23 19:17 08/30/23 08/31/23 08/31/23 22:59 06:59 14:59 Intake Total 960 / 1320 480 / 1800 240 / 240 Output Total 0 / 0 Balance 960 / 1320 480 / 1800 240 / 240 Weight last 48 hrs Weight 89.953 kg Weight 88.451 kg Physical Exam 2 Const: COMMON NORMALS: no acute distress and patient oriented x3 Resp: COMMON NORMALS: normal respiratory effort, No retractions, No use of accessory muscles and clear to auscultation bilaterally AUSCULTATION: clear to auscultation bilaterally Cardio: COMMON NORMALS: regular rate, regular rhythm, S1 normal heart sound present and S2 normal heart sound present RATE: regular rate RHYTHM: r egular rhythm HEART SOUNDS: S1 normal heart sound present and S2 normal heart sound present GI: COMMON NORMALS: Normal to inspection, nondistended, normoactive bowel sounds present and non-tender Extremity: COMMON NORMALS: no pedal edema Neuro: COMMON NORMALS: patient oriented x3 Psych: COMMON NORMALS: mental status grossly normal Data 08/31/23 04:55 08/31/23 04:55 A&P Assessment and plan (1) Alcohol withdrawal syndrome: Plan Alcohol withdrawal -Check urine toxicology screen, positive for marijuana -Monitor electrolytes -[place] protocol -Will place on scheduled Librium 25 mg every 8 hours -Thiamine, folic acid -Full code -Lovenox for DVT prophylaxis Attestations 2 Medical Necessity Statement*: Patient requires hospitalization for alcohol withdrawal Diagnoses Alcohol withdrawal syndrome F10.939
[2023-08-31] MEDS: enoxaparin 40 mg/0.4 mL Syringe SUBCUT (17:28)
[2023-08-31] MEDS: pantoprazole 40 mg SDV IVP (17:28)
[2023-08-31] MEDS: nicotine 21 mg Patch 1 PATCH TRANSDERMA (18:22)
[2023-09-01] VITALS (7 sets, daily range): BP systolic 114–130; BP diastolic 75–84; PULSE 68–92; RESP 16–18; TEMP 36.5–36.9; O2SAT 95–99
[2023-09-01] MEDS: chlordiazePOXIDE 25 mg Capsule PO ×2 (02:48→11:21)
[2023-09-01] MEDS: cloNIDine 0.1 mg Tablet 0.100000000000000006 MG PO ×2 (02:48→13:27)
[2023-09-01 06:14] LABS: Basophils # 0.1 10^3/uL (0.0-0.1); Eosinophils # 0.4 10^3/uL (0.0-0.8); Eosinophils % 6.6 %; Hematocrit 41.1 % (37-53); Lymphocytes # 1.7 10^3/uL (0.8-4.8); Lymphocytes % 27.7 %; Mean Corpuscular HGB Conc 32.8 g/dL (30-55); Mean Corpuscular Hemoglobin 33.7 pg (27-33); Mean Corpuscular Volume 102.5 fl (82-101); Mean Platelet Volume 11.9 fL (7.4-10.4); Monocytes # 0.6 10^3/uL (0.2-0.9); Neutrophils % 54.4 %; Nucleated Red Blood Cells % 0 %; Platelet Count 196 10^3/cmm (157-399); Red Blood Count 4.01 10^6/uL (3.85-5.65); Red Cell Distribution Width 12.9 % (12.1-15.1); White Blood Count 6.07 10^3/uL (3.29-11.43)
[2023-09-01 06:44] LABS: Anion Gap 13.8 (5-19); Blood Urea Nitrogen 14 mg/dL (6-20); Calcium 9.7 mg/dL (8.5-10.5); Carbon Dioxide 25 mmol/L (22-29); Chloride 107 mmol/L (98-107); Glucose 103 mg/dL (65-115); Osmolality Calculated 295 mOsm/kg (285-295); Potassium 3.8 mmol/L (3.5-5.1); Sodium 142 mmol/L (136-145)
[2023-09-01 06:52] LABS: Creatinine Clr Calc Pharmacy 177.1883
[2023-09-01] MEDS: thiamine 100 mg Tablet PO (08:34)
[2023-09-01] MEDS: folic acid 1 mg Tablet PO (08:34)
[2023-09-01] MEDS: losartan 50 mg Tablet 25 MG PO (08:35)
[2023-09-01] MEDS: multivitamin therapeutic Tablet 1 TAB PO (08:35)
[2023-09-01] MEDS: magnesium oxide 400 mg tablet PO (08:35)
[2023-09-01] MEDS: amlodipine 10 mg Tablet PO (08:35)
--- NOTE | 2023-09-01 10:30 | P.DS_ITS ---
Discharge Providers Date of Admission: 08/27/23 18:16 Date of Discharge: September 01, 2023 Attending Provider at Admission: Flavio Fabian MD Attending Provider at Discharge: Flavio Fabian MD Primary Care Provider: SHO Queen Diagnoses at Discharge Discharge Diagnosis (1) Alcohol withdrawal syndrome: Status: Acute Reason for Visit Reason for Visit: alcohol detox Hospital Course Hospital Course jose alfredo Barahona is a 48 year old male with a past medical history of hyperlipidemia, GERD, history of alcoholism, who presents to [facility] as he is undergoing alcohol withdrawals. Patient reports that he has a prior history of alcoholism, he has been in a rehab program, in the past, he recently broke up with his girlfriend, and he is homeless currently, his last drink of alcohol was yesterday morning he had a whole bottle of vodka, he normally drinks 1/5 of vodka, currently having tremors, feeling anxious, denies any visual auditory or tactile hallucinations, no chest pain but does not report palpitations, does feel nauseous, he is gone through alcohol withdrawals before, no history of delirium tremens, no history of hematemesis, no history of esophageal varices Patient presented to [facility] for alcohol withdrawal syndrome, received Librium, scheduled, Ativan as needed, clinically monitored, thiamine, folic acid, blood pressure monitoring overall patient clinically improved, discharged on Librium taper, thiamine, folic acid, instructions to abstain from alcohol consumption Attempts have been made to place patient in alcohol rehab programs, patient is homeless, attempts were made at placement at care home, palced a alcohol rehab facility Physical Exam Const: COMMON NORMALS: no acute distress and patient oriented x3 Resp: COMMON NORMALS: normal respiratory effort, No retractions, No use of accessory muscles and clear to auscultation bilaterally AUSCULTATION: clear to auscultation bilaterally Cardio: COMMON NORMALS: regular rate, regular rhythm, S1 normal heart sound present and S2 normal heart sound present RATE: regular rate RHYTHM: regular rhythm HEART SOUNDS: S1 normal heart sound present and S2 normal heart sound present GI: COMMON NORMALS: Normal to inspection, nondistended, normoactive bowel wilfredo nds present, Soft to palpation and non-tender PALPATION: Yes Soft to palpation Extremity: COMMON NORMALS: no pedal edema Neuro: COMMON NORMALS: patient oriented x3 Psych: COMMON NORMALS: mental status grossly normal Discharge Data Studies Completed and Pending Pending at discharge Category Date Time Status Basic Metabolic Panel AM LABS Lab 09/02/23 04:00 Ordered Complete Blood Count w/Auto AM LABS Lab 09/02/23 04:00 Ordered Laboratory Results WBC 6.07 10^3/uL (3.29-11.43) 09/01/23 05:53 RBC 4.01 10^6/uL (3.85-5.65) 09/01/23 05:53 Hgb 13.50 g/dL (11.27-16.99) 09/01/23 05:53 Hct 41.1 % (37-53) 09/01/23 05:53 MCV 102.5 fl (82-101) H 09/01/23 05:53 MCH 33.7 pg (27-33) H 09/01/23 05:53 MCHC 32.8 g/dL (30-55) 09/01/23 05:53 RDW 12.9 % (12.1-15.1) 09/01/23 05:53 Plt Count 196 10^3/cmm (157-399) 09/01/23 05:53 MPV 11.9 fL (7.4-10.4) H 09/01/23 05:53 Neut % (Auto) 54.4 % 09/01/23 05:53 Lymph % (Auto) 27.7 % 09/01/23 05:53 Rooks % (Auto) 10.0 % 09/01/23 05:53 Eos % (Auto) 6.6 % 09/01/23 05:53 Baso % (Auto) 1.0 % 09/01/23 05:53 Neut # (Auto) 3.30 10^3/uL (1.8-7.7) 09/01/23 05:53 Lymph # (Auto) 1.7 10^3/uL (0.8-4.8) 09/01/23 05:53 Rooks # (Auto) 0.6 10^3/uL (0.2-0.9) 09/01/23 05:53 Eos # (Auto) 0.4 10^3/uL (0.0-0.8) 09/01/23 05:53 Baso # (Auto) 0.1 10^3/uL (0.0-0.1) 09/01/23 05:53 Nucleated RBC % (auto) 0 % 09/01/23 05:53 Nucleated RBCs # 0.0 /100WBC 09/01/23 05:53 APTT 26.4 SECONDS (23.9-36.7) 08/27/23 15:40 Sodium 142 mmol/L (136-145) 09/01/23 05:53 Potassium 3.8 mmol/L (3.5-5.1) 09/01/23 05:53 Chloride 107 mmol/L (98-107) 09/01/23 05:53 Carbon Dioxide 25 mmol/L (22-29) 09/01/23 05:53 Anion Gap 13.8 (5-19) 09/01/23 05:53 BUN 14 mg/dL (6-20) 09/01/23 05:53 Creatinine 0.6 mg/dL (0.7-1.2) L 09/01/23 05:53 GFR Calculation 145.0 mL/min (90-130) H 09/01/23 05:53 Glucose 103 mg/dL (65-115) 09/01/23 05:53 Estimat Average Glucose 105 08/27/23 15:40 Hemoglobin A1c 5.3 % (4.0-6.0) 08/27/23 15:40 Calculated Osmolality 295 mOsm/kg (285-295) 09/01/23 05:53 Calcium 9.7 mg/dL (8.5-10.5) 09/01/23 05:53 Phosphorus 4.0 mg/dL (2.5-4.5) 08/30/23 04:05 Magnesium 1.9 mg/dL (1.7-2.3) 08/30/23 04:05 Total Bilirubin 0.5 mg/dL (0.15-1.2) 08/30/23 04:05 AST 172 U/L (0-40) H 08/30/23 04:05 ALT 159 U/L (0-41) H 08/30/23 04:05 Alkaline Phosphatase 132 U/L (40-130) H 08/30/23 04:05 Total Protein 7.0 g/dL (6.6-8.7) 08/30/23 04:05 Albumin 4.2 g/dL (3.5-5.2) 08/30/23 04:05 Globulin 2.8 g/dL (1.3-4.6) 08/30/23 04:05 Triglycerides 81 mg/dL (0-150) 08/27/23 15:40 Cholesterol 240 mg/dL (0-200) H 08/27/23 15:40 LDL Cholesterol, Calc 158 mg/dL (50-129) H 08/27/23 15:40 HDL Cholesterol 66 mg/dL (60-100) 08/27/23 15:40 LDL/HDL Ratio 2.39 RATIO (0.00-3.22) 08/27/23 15:40 Cholesterol/HDL Ratio 3.64 mg/dL (1.0-5.00) 08/27/23 15:40 Lipase 52 U/L (13-60) 08/27/23 15:40 TSH 1.84 uIU/mL (0.27-4.20) 08/27/23 15:40 Salicylates < 0.3 mg/dL (3-10) L 08/27/23 15:40 Urine Opiates Screen Negative ng/mL (Negative) 08/27/23 15:40 Acetaminophen < 5.0 ug/mL (10-30) L 08/27/23 15:40 Ur Barbiturates Screen Negative ng/mL (Negative) 08/27/23 15:40 Ur Phencyclidine Scrn Negative ng/mL (Negative) 08/27/23 15:40 Ur Amphetamines Screen Negative ng/mL (Negative) 08/27/23 15:40 U Benzodiazepines Scrn Positive ng/mL (Negative) H 08/27/23 15:40 Urine Cocaine Screen Negative ng/mL (Negative) 08/27/23 15:40 U Marijuana (THC) Screen Positive ng/mL (Negative) H 08/27/23 15:40 Ethyl Alcohol < 10 mg/dL (0-10) 08/27/23 15:40 Vitals Last Vital Signs Temp 97.7 F 09/01/23 07:15 Pulse 77 09/01/23 07:15 Resp 16 09/01/23 07:15 BP 114/79 09/01/23 08:35 Pulse Ox 95 09/01/23 07:15 O2 Del Method Room Air 09/01/23 07:15 O2 Flow Rate 1 08/29/23 04:00 FiO2 21 08/27/23 19:17 Discharge Plan Discharge Patient Disposition: Home Condition: Stable Prescriptions: New losartan 50 mg Tablet 25 mg PO DAILY 30 Days Qty: 15 0RF chlordiazepoxide HCl 25 mg Capsule See Rx Instructions .ROUTE .COMPLEX Qty: 9 0RF Rx Instructions: 1 tab twice daily for 3 days, 1 tab daily for 3 days amlodipine 10 mg Tablet 10 mg PO DAILY 30 Days Qty: 30 0RF Vitamin B-1 (mononitrate) 100 mg Tablet 100 mg PO DAILY 30 Days Qty: 30 0RF Thera 400 mcg Tablet 1 tab PO DAILY 30 Days Qty: 30 0RF Continued omeprazole 40 mg Capsule,Delayed Release(Dr/Ec) 40 mg PO BEDTIME PRN (Reason: Heartburn) 30 Days Qty: 30 0RF Changed Crestor 10 mg Tablet 10 mg PO BEDTIME 30 Days Qty: 30 0RF Discontinued losartan 25 mg Tablet 25 mg PO BEDTIME PRN (Reason: Blood Pressure) ibuprofen 200 mg Tablet 800 mg PO Q6H PRN (Reason: Pain) BC Pain Relief 845-65 mg Powder In Packet 1 ea PO DAILY PRN (Reason: Pain) Discharge Orders: Discharge Order (Routine); Ordered 09/01/23 Ordered By: Flavio Fabian Referrals: Karen Menchaca FNP [Primary Care Provider] - 09/07/23 10:00 am Discharge Diet: Regular Discharge Activity: Resume usual activity Patient Instructions: Chlordiazepoxide (By mouth), Thiamine (By mouth), Amlodipine (By mouth), Losartan (By mouth), Cirrhosis of the Liver (DC), Abuse of Alcohol (DC), Alcohol Dependence (DC), Opioid Safety Activity Restrictions/Additional Instructions: - Please abstain from alcohol consumption -Please use Librium as prescribed -Please follow-up with primary care provider Discharge Attestations Time Spent in Discharge Care*: greater than 30 min Quality Metrics Clinical Quality Measures [ No reported AMI, CVA or VTE this stay] Coding Level of Care Code 09168 Total time (in minutes) for Discharge: 45 Diagnoses Alcohol withdrawal syndrome F10.939
== END 2023-09-01 13:36 | DRG 897 ==
LOC: ER 16:22 → CSU 08-28 06:39 → MEDSURG 08-30 20:08
PROVIDERS: Admitting Provider Family Medicine; Emergency Provider Emergency Medicine; PCP Nurse Practitioner Family; Visit Provider Family Medicine
DX: F10.239 Alcohol dependence with withdrawal, unspecified (principal); Z59.00 Homelessness unspecified; R82.5 Elevated urine levels of drugs, medicaments and biological substances
CPT/HCPCS: 36415; 80048; 80053; 80061; 80306; 80307; 83036; 83690; 83735; 84100; 84443; 85025; 85730; 93005; 94664; 96372; 96374; 96375; 96376; 99285; C9113; J1650; J2060; J3411; J3490; J7030

== ENCOUNTER 2023-11-14 16:04 | Emergency (ER) | payer MEDICAID, SELFPAY ==
[2023-11-14 16:22] VITALS: BP 141/75; PULSE 79; RESP 14; TEMP 36.7; O2SAT 97
--- NOTE | 2023-11-14 16:59 | ED_ITS ---
HPI - Skin/Abscess/Foreign Bdy General: Chief complaint: Skin/Abscess/Foreign Body Stated complaint: Infection Time Seen by Provider: 11/14/23 16:36 History of Present Illness: Patient reports has had a pimple in the septum of his nose that he popped about a week ago and then it started getting worse. Was seen at outside ER and placed on Bactrim and mupirocin. He has been applying it but it has been continuing to get worse. Along with the now the spot on his right leg. He reports only has 1 day left of his Bactrim. PFSH ED PFSH: Medical History (Updated 11/14/23 @ 17:01 by Giovanny Donahue MD) Alcohol withdrawal syndrome No pertinent family history Surgical History No pertinent past surgical history Family History (Updated 08/27/23 @ 16:46 by Flavio Fabian MD) Mother CAD (coronary artery disease) Social History (Updated 08/27/23 @ 16:46 by Flavio Fabian MD) Smoking and tobacco/nicotine status: never used tobacco/nicotine Alcohol intake: current Alcohol intake frequency: 3 or more drinks per day Substance/Drug Use: current Procedures Abscess I/D Site: lower extremity (R ant dickinson) Side (if applicable): right Sedation/analgesia: none Technique: incised with #11 blade Amount of fluid expressed (mL): 1 Irrigation: No Packing used?: none Course Vital Signs: Vital signs: Vital Signs Temperature 98.1 F 11/14/23 16:22 Pulse Rate 79 11/14/23 16:22 Respiratory Rate 14 11/14/23 16:22 Blood Pressure 141/75 11/14/23 16:22 Pulse Oximetry 97 11/14/23 16:22 MDM - Skin/Abscess/Foreign Bdy Medicial Decision Making Patient with cellulitis in his septum along with a spot on the right leg. Both are hurting. Patient reports he has been on Bactrim has only 1 day left. He was seen at outside ER about a week ago. He also has plenty of Bactroban ointment at home advised him to use on the leg 2-3 times daily. As well as on the nose. Differential Diagnosis Likely abscess of skin or subcutaneous tissue Medical Records I reviewed the patient's medical records. No radiology studies performed this visit Discharge Plan Discharge Patient Disposition: Home Clinical Impression: Cellulitis of nasal tip, Abscess of right leg excluding foot Condition: Stable Prescriptions: New doxycycline hyclate 100 mg capsule 100 mg PO BID 10 Days Qty: 20 0RF No Action chlordiazepoxide HCl 25 mg Capsule See Rx Instructions .ROUTE .COMPLEX Qty: 9 0RF Rx Instructions: 1 tab twice daily for 3 days, 1 tab daily for 3 days omeprazole 40 mg Capsule,Delayed Release(Dr/Ec) 40 mg PO BEDTIME PRN (Reason: Heartburn) 30 Days Qty: 30 0RF Crestor 10 mg Tablet 10 mg PO BEDTIME 30 Days Qty: 30 0RF Discharge Orders: Discharge ED (Routine); Ordered 11/14/23 Ordered By: Giovanny Donaheu Referrals: Karen Menchaca FNP [Primary Care Provider] - Discharge Diet: Usual diet Discharge Activity: Resume usual activity Patient Instructions: Abscess (ED) Activity Restrictions/Additional Instructions: Make sure to take the full 10 days of antibiotics. If the nose is not improving may need to follow-up with ENT. Coding Level of Care Code ED Talent Advisor for Jt Sow
[2023-11-14] MEDS: doxycycline 100 mg Tablet PO (17:09)
[2023-11-14 17:13] VITALS: BP 127/69; PULSE 85; RESP 16; O2SAT 99
== END 2023-11-14 17:16 | disposition home or self-care (01) ==
PROVIDERS: Emergency Provider Emergency Medicine; PCP Nurse Practitioner Family
DX: J34.0 Abscess, furuncle and carbuncle of nose (principal); L02.415 Cutaneous abscess of right lower limb
CPT/HCPCS: 10060; 87070; 87077; 87186; 99283

== ENCOUNTER → 2024-05-02 13:31 | Outpatient (BNVA) | payer MEDICAID, SELFPAY | PROVIDERS: PCP Nurse Practitioner Family; Visit Provider Orthopaedic Surgery | DX: M47.22 Other spondylosis with radiculopathy, cervical region (principal); M54.2 Cervicalgia | CPT/HCPCS: 72050 ==

== ENCOUNTER 2024-09-11 12:21 | Emergency (ER) | payer SELFPAY ==
[2024-09-11 12:29] VITALS: BP 200/131; PULSE 129; RESP 20; TEMP 36.4; O2SAT 95; BMI 25.8
--- NOTE | 2024-09-11 12:29 | XR_ITS ---
WS: [id number] XR chest 1V portable [id number] REASON FOR EXAM: cva FINDINGS: The chest is unchanged compared to 03/28/2022. Mild tortuosity of the thoracic aorta. The heart is mildly enlarged. Calcified granulomatous disease in both hemithoraces. No acute pulmonary parenchymal or pleural abnormality. Moderate degenerative spondylosis in the mid and lower thoracic spine. XR/XR chest 1V portable [id number] IMPRESSION: Stable chest without acute abnormality.
--- NOTE | 2024-09-11 12:29 | CT_ITS ---
WS: [id number] CT ANGIOGRAM CEREBRAL AND CAROTID ARTERIES HISTORY: CVA. TECHNIQUE: CT angiogram is performed of the carotid and cerebral arteries. During arterial injection imaging is obtained from the skull vertex to the aortic arch in 1.25 mm imaging. Coronal and sagittal reformats are submitted. Additional multi planar reformats of the carotid and cerebral arteries are submitted, MIP imaging also reviewed. NASCET criteria utilized. All CT scans at [facility] use at least one of these dose optimization techniques: automated exposure control; mA and/or kV adjustment per patient size (includes targeted exams where dose is matched to clinical indication); or iterative reconstruction. CONTRAST: Omnipaque 350; 100 mL IV. DLP: 554.56 mGy.cm COMPARISON: None available. Carotid Angiogram: Right carotid: Common carotid artery: Arises normally from the innominate artery. No significant plaque or stenosis. Internal carotid artery: Breathing motion artifact through the bifurcation. No occlusion. Mild plaque. External carotid artery: Patent. Left carotid: Common carotid artery: Arises normally from the aorta. No significant plaque or stenosis. Internal carotid artery: Plaque at the bifurcation with motion artifact. External carotid artery: Patent. Right vertebral artery: Unremarkable. Left vertebral artery: Unremarkable. Arises normally from the subclavian artery. Subclavian arteries: No stenosis or significant abnormality. Upper thorax: Normal. Thyroid gland: Normal. Osseous structures: Degenerative disc disease at C6-7. Bone upon bone with mild asymmetry of the facet joints. No acute fractures. CEREBRAL ANGIOGRAM: Intracranial vertebral arteries: Normal with no significant atherosclerosis. Basilar artery: No significant stenosis or occlusion. No aneurysm. Intracranial Internal carotid arteries: Small amount of calcified plaque through the cavernous sinuses and supraclinoid. No high-grade stenosis. No occlusions. Middle cerebral arteries: Normal. Anterior cerebral arteries and ACOM: Normal. Posterior cerebral arteries and PCOM's: Small caliber RIGHT P1 segment. This is probably congenital. Suspect persistent RIGHT circulation. P2 segments are normal. Posterior communicating arteries are opacified. Mastoid air cells: Normal. Paranasal sinuses: Mild mucoperiosteal thickening in the frontal and ethmoid air cells. Calvarium: Normal. CT/CT angio headneck* [id number] IMPRESSION: 1. Mild atherosclerosis cervical carotid arteries. No high-grade stenosis. 2. 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 Small amount of thrombus is not excluded. This may be a normal variant such as persis tent circulation. Contrast is noted extending from the RIGHT posterior ce rebral artery into the posterior communicating artery. Favor congenital variant . 3. No vertebral artery occlusion.
--- NOTE | 2024-09-11 12:30 | CT_ITS ---
WS: [id number] CT HEAD NONCONTRAST HISTORY: Symptoms of acute stroke TECHNIQUE: Contiguous axial imaging performed through the brain. Bone and soft tissue windows. Sagittal and coronal reformats reviewed. All CT scans at [facility] use at least one of these dose optimization techniques: automated exposure control; mA and/or kV adjustment per patient size (includes targeted exams where dose is matched to clinical indication); or iterative reconstruction. DLP: 1147.94 mGy COMPARISON: 03/25/2022 No acute intracranial hemorrhage, midline shift or mass effect. No atrophy or prior infarcts or herniation. Mild bifrontal lobe atrophy. Ventricles: Normal size with no hydrocephalus. No inferior displacement of the cerebellar tonsils. Paranasal sinuses: As visualized are clear. Mastoid air cells: Well pneumatized. Calvarium and scalp: Skull is intact with no soft tissue edema or swelling. CT/CT head thrombolytic [id number] IMPRESSION: No acute intracranial hemorrhage or edema. Stable noncontrast head CT. Notified Gary Sánchez MD at 09/11/2024 12:43 PM.
--- NOTE | 2024-09-11 12:36 | W.ED.NEUROSD ---
HPI - Neuro Symptoms/Deficit General: Chief Complaint: Neuro Symptoms/Deficit Stated Complaint: sob, speech and balance problems Time Seen by Provider: 09/11/24 12:26 Source: patient Mode of arrival: ambulatory Limitations: no limitations History of Present Illness: 49-year-old male who states that he had used methamphetamine yesterday states today started having he felt like some pressured slurred speech and difficulty walking started at 9 AM. Also diaphoretic states his hearts been racing and he denies any chest pain denies any headache. Associated symptoms: Deny chest pain, headache(s), nausea or vomiting Related Data Home Medications ?Medication ?Instructions ?Recorded ?Confirmed losartan 25 mg tablet 25 mg PO DAILY 09/11/24 09/11/24 Previous Rx's ?Medication ?Instructions ?Recorded amoxicillin 500 mg capsule 500 mg PO TID #30 caps 08/31/24 Allergies Allergy/AdvReac Type Severity Reaction Status Date / Time No Known Allergies Allergy Verified 09/11/24 12:35 Review of Systems Const: Denies: fever(s), chills, body aches or change in appetite Eyes: Denies: blurry vision or eye discomfort ENMT: Denies: throat pain or dental pain Card: Denies: chest pain Resp: Denies: dyspnea GI: Denies: abdominal pain, nausea, vomiting or diarrhea : Denies: dysuria Musc: Denies: neck pain or back pain Skin/Breast: Denies: rash Neuro: Reports: weakness in extremities; Denies: headache(s) Psych: Denies: depression PFSH ED PFSH: Medical History Alcohol withdrawal syndrome No pertinent family history Surgical History No pertinent past surgical history Family History Mother CAD (coronary artery disease) Social History Smoking and tobacco/nicotine status: never used tobacco/nicotine Alcohol intake: current Alcohol intake frequency: 3 or more drinks per day Substance/Drug Use: current NIH stroke score NIHSS: Level Of Consciousness - 1a: 0 Level Of Consciousness Questions - 1b: Both Correct Level Of Consciousness Commands - 1c: Both Correct Best Gaze - 2: Normal Visual Simmons - 3: No Visual Loss Facial Palsy - 4: Normal Motor Arm Right - 5: No Drift Motor Arm Left - 5: No Drift Motor Leg Right - 6: No Drift Motor Leg Left - 6: No Drift Limb Ataxia - 7: Absent Sensory - 8: Normal Best Language - 9: No Aphasia Dysarthia - 10: Mild/Moderate Dysarthia Extinction And Inattention - 11: 0 Score: Total Score: 1 Physical Exam Const: COMMON NORMALS: patient oriented x3 OTHER: diaphoretic HENMT: COMMON NORMALS: normocephalic and atraumatic HEAD & SCALP: normocephalic and atraumatic Eye: COMMON NORMALS: conjunctivae normal CONJUNCTIVA: Yes conjunctivae normal Neck/C-Spine: COMMON NORMALS: full ROM and supple Chest: COMMONS NORMALS: normal inspection of the chest Resp: COMMON NORMALS: normal respiratory effort, No retractions, No use of accessory muscles and clear to auscultation bilaterally AUSCULTATION: clear to auscultation bilaterally Cardio: COMMON NORMALS: regular rhythm and No murmurs present (Cardio) RATE: tachycardic RHYTHM: regular rhythm GI: COMMON NORMALS: Normal to inspection, nondistended, normoactive bowel sounds present, Soft to palpation, non-tender and no masses PALPATION: Yes Soft to palpation Extremity: COMMON NORMALS: normal to inspection and full ROM Neuro: COMMON NORMALS: patient oriented x3, moves all extremities and no focal motor deficits Psych: COMMON NORMALS: mental status grossly normal, Normal thought process present and cooperative THOUGHT PROCESS: Normal thought process present Skin: COMMON NORMALS: no rashes or lesions noted and no wounds GENERAL SKIN EXAM: no rashes or lesions noted Course Vital Signs: Vital signs: Vital Signs Temperature 97.5 F L 09/11/24 12:29 Pulse Rate 97 09/11/24 14:00 Respiratory Rate 20 H 09/11/24 12:29 Blood Pressure 188/113 09/11/24 14:00 Pulse Oximetry 93 09/11/24 14:00 Oxygen Delivery Me thod Room Air 09/11/24 14:00 MDM - Neuro Symptoms/Deficit Medical Decision Making Patient presents here with some dizziness likely from his methamphetamine abuse I did offer him admission but he states he feels much improved after Ativan he is been able to walk without any difficulty no signs of acute stroke stable for discharge follow-up PCP and informed to return if worsening. Medical Records I reviewed the patient's medical records. Lab Data I reviewed the patient's lab results. 09/11/24 12:39 09/11/24 12:39 Radiology Impressions Chest X-Ray 09/11/24 12:29 IMPRESSION: Stable chest without acute abnormality. Head/Neck CTA 09/11/24 12:29 IMPRESSION: 1. Mild atherosclerosis cervical carotid arteries. No high-grade stenosis. 2. 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 Small amount of thrombus is not excluded. This may be a normal variant such as persistent circulation. Contrast is noted extending from the RIGHT posterior cerebral artery into the posterior communicating artery. Favor congenital variant. 3. No vertebral artery occlusion. Head CT 09/11/24 12:30 IMPRESSION: No acute intracranial hemorrhage or edema. Stable noncontrast head CT. Notified Gary Sánchez MD at 09/11/2024 12:43 PM. Laboratory Results WBC 12.72 10^3/uL (3.29-11.43) H 09/11/24 12:39 RBC 4.79 10^6/uL (3.85-5.65) 09/11/24 12:39 Hgb 15.20 g/dL (11.27-16.99) 09/11/24 12:39 Hct 42.7 % (37-53) 09/11/24 12:39 MCV 89.1 fl (82-101) 09/11/24 12:39 MCH 31.7 pg (27-33) 09/11/24 12:39 MCHC 35.6 g/dL (30-55) 09/11/24 12:39 RDW 14.4 % (12.1-15.1) 09/11/24 12:39 Plt Count 336 10^3/cmm (157-399) 09/11/24 12:39 MPV 10.4 fL (7.4-10.4) 09/11/24 12:39 Neut % (Auto) 71.5 % 09/11/24 12:39 Lymph % (Auto) 20.8 % 09/11/24 12:39 [place] % (Auto) 6.7 % 09/11/24 12:39 Eos % (Auto) 0.2 % 09/11/24 12:39 Baso % (Auto) 0.5 % 09/11/24 12:39 Neut # (Auto) 9.11 10^3/uL (1.8-7.7) H 09/11/24 12:39 Lymph # (Auto) 2.6 10^3/uL (0.8-4.8) 09/11/24 12:39 [place] # (Auto) 0.9 10^3/uL (0.2-0.9) 09/11/24 12:39 Eos # (Auto) 0.0 10^3/uL (0.0-0.8) 09/11/24 12:39 Baso # (Auto) 0.1 10^3/uL (0.0-0.1) 09/11/24 12:39 Nucleated RBC % (auto) 0 % 09/11/24 12:39 Nucleated RBCs # 0.0 /100WBC 09/11/24 12:39 PT 12.20 SECONDS (12.1-14.9) 09/11/24 12:39 INR 0.85 (0.8-1.2) 09/11/24 12:39 APTT 27.7 SECONDS (23.9-36.7) 09/11/24 12:39 Sodium 133 mmol/L (136-145) L 09/11/24 12:39 Potassium 3.1 mmol/L (3.5-5.1) L 09/11/24 12:39 Chloride 92 mmol/L (98-107) L 09/11/24 12:39 Carbon Dioxide 17 mmol/L (22-29) L 09/11/24 12:39 Anion Gap 27.1 (5-19) H 09/11/24 12:39 BUN 9 mg/dL (6-20) 09/11/24 12:39 Creatinine 0.6 mg/dL (0.7-1.2) L 09/11/24 12:39 GFR Calculation 144.4 mL/min (90-130) H 09/11/24 12:39 Glucose 98 mg/dL (65-115) 09/11/24 12:39 POC Glucose 121 mg/dL (70-110) H 09/11/24 12:56 Calculated Osmolality 275 mOsm/kg (285-295) L 09/11/24 12:39 Calcium 9.0 mg/dL (8.5-10.5) 09/11/24 12:39 Total Bilirubin 0.6 mg/dL (0.15-1.2) 09/11/24 12:39 AST 134 U/L (0-40) H 09/11/24 12:39 ALT 47 U/L (0-41) H 09/11/24 12:39 Alkaline Phosphatase 119 U/L (40-130) 09/11/24 12:39 Total Protein 8.1 g/dL (6.6-8.7) 09/11/24 12:39 Albumin 4.9 g/dL (3.5-5.2) 09/11/24 12:39 Globulin 3.2 g/dL (1.3-4.6) 09/11/24 12:39 Urine Color Yellow (Yellow) 09/11/24 13:40 Urine Appearance Clear (CLEAR) 09/11/24 13:40 Urine pH 6 (5-7) 09/11/24 13:40 Ur Specific [place] 1.010 (1.005-1.030) 09/11/24 13:40 Urine Protein Trace (Negative) 09/11/24 13:40 Urine Glucose (UA) Norm (Normal) 09/11/24 13:40 Urine Ketones 1+ (Negative) H 09/11/24 13:40 Urine Blood 2+ (Negative) H 09/11/24 13:40 Urine Nitrate Negative (Negative) 09/11/24 13:40 Urine Bilirubin Neg (Negative) 09/11/24 13:40 Urine Urobilinogen Norm mg/dL (Negative) 09/11/24 13:40 Ur Leukocyte Esterase Negative (Negative) 09/11/24 13:40 Urine RBC 0-2 /hpf (0-2) 09/11/24 13:40 Urine WBC 0-5 /hpf (0-5) 09/11/24 13:40 Ur Squamous Epith Cells 0-5 /hpf (0-5) 09/11/24 13:40 Amorphous Sediment Not Reportable 09/11/24 13:40 Urine Bacteria None seen /hpf (NONE) 09/11/24 13:40 Hyaline Casts 0.40 /lpf 09/11/24 13:40 Urine Opiates Screen Negative ng/mL (Negative) 09/11/24 13:40 Ur Barbiturates Screen Negative ng/mL (Negative) 09/11/24 13:40 Ur Phencyclidine Scrn Negative ng/mL (Negative) 09/11/24 13:40 Ur Amphetamines Screen Positive ng/mL (Negative) H 09/11/24 13:40 U Benzodiazepines Scrn Negative ng/mL (Negative) 09/11/24 13:40 Urine Cocaine Screen Negative ng/mL (Negative) 09/11/24 13:40 U Marijuana (THC) Screen Positive ng/mL (Negative) H 09/11/24 13:40 All radiology interpretation(s) finalized by discharge EKG Data EKG 1: I personally reviewed and interpreted this EKG as follows: EKG interpretation date: 09/11/24 EKG interpretation time: 12:56 Interpretation: sinus tach hr [address] elevation qrs 89 qtc 409 Discharge Plan Discharge Patient Disposition: Home Clinical Impression: Dizziness, Methamphetamine use Condition: Stable Prescriptions: No Action amoxicillin 500 mg capsule 500 mg PO TID Qty: 30 0RF losartan 25 mg tablet 25 mg PO DAILY Discharge Orders: Discharge ED (Routine); Ordered 09/11/24 Ordered By: Gary Sánchez Referrals: Karen Menchaca FNP [Primary Care Provider] - 4-7 days Discharge Diet: Advance as tolerated Discharge Activity: Resume usual activity Patient Instructions: Vertigo (ED), Methamphetamine Use Disorder (ED) Print Language: Portuguese Coding Level of Care Code ED [employer] Faculty for Jt Sow
[2024-09-11] MEDS: iohexol 350 mg/mL 500 mL Btl (per mL) IV (12:42)
[2024-09-11 12:48] LABS: Basophils # 0.1 10^3/uL (0.0-0.1); Basophils % 0.5 %; Eosinophils % 0.2 %; Hematocrit 42.7 % (37-53); Lymphocytes # 2.6 10^3/uL (0.8-4.8); Lymphocytes % 20.8 %; Mean Corpuscular HGB Conc 35.6 g/dL (30-55); Mean Corpuscular Hemoglobin 31.7 pg (27-33); Mean Corpuscular Volume 89.1 fl (82-101); Mean Platelet Volume 10.4 fL (7.4-10.4); Monocytes # 0.9 10^3/uL (0.2-0.9); Monocytes % 6.7 %; Neutrophils # 9.11 10^3/uL (1.8-7.7); Neutrophils % 71.5 %; Nucleated Red Blood Cells % 0 %; Platelet Count 336 10^3/cmm (157-399); Red Blood Count 4.79 10^6/uL (3.85-5.65); Red Cell Distribution Width 14.4 % (12.1-15.1); White Blood Count 12.72 10^3/uL (3.29-11.43)
--- NOTE | 2024-09-11 12:56 | ECG_ITS ---
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
[2024-09-11 13:00] LABS: Glucose Point of Care 121 mg/dL (70-110)
[2024-09-11 13:02] LABS: INR 0.85 (0.8-1.2)
[2024-09-11 13:03] LABS: Partial Thromboplastin Time 27.7 SECONDS (23.9-36.7)
[2024-09-11 13:06] LABS: Alanine Aminotransferase 47 U/L (0-41); Albumin Level 4.9 g/dL (3.5-5.2); Alkaline Phosphatase 119 U/L (40-130); Aspartate Amino Transferase 134 U/L (0-40); Blood Urea Nitrogen 9 mg/dL (6-20); Carbon Dioxide 17 mmol/L (22-29); Chloride 92 mmol/L (98-107); Globulin 3.2 g/dL (1.3-4.6); Glomerular Filtration Rate 144.4 mL/min (90-130); Glucose 98 mg/dL (65-115); Osmolality Calculated 275 mOsm/kg (285-295); Sodium 133 mmol/L (136-145); Total Bilirubin 0.6 mg/dL (0.15-1.2); Total Protein 8.1 g/dL (6.6-8.7)
[2024-09-11 13:07] LABS: Anion Gap 27.1 (5-19); Potassium 3.1 mmol/L (3.5-5.1)
[2024-09-11] MEDS: LORazepam 2 mg/mL INJ 1 mL 1 MG IVP (13:12)
[2024-09-11] MEDS: sodium chloride 0.9% 1,000 ML 999 ML IV (13:12)
[2024-09-11 14:00] VITALS: BP 188/113; PULSE 97; O2SAT 93
[2024-09-11 14:17] LABS: Bacteria Urine None Seen /hpf; RBC Urine 0-2 /hpf (0-2); Squamous Epithelial Cell Urine 0-5 /hpf (0-5); WBC Urine 0-5 /hpf (0-5)
[2024-09-11 14:22] LABS: Add Urine Culture? No; Add Urine Microscopic? YES; Bilirubin Urine Neg (Negative); Blood Urine 2+ (Negative); Glucose Urine UA Norm (Normal); Ketones Urine 1+ (Negative); Leukocyte Esterase Urine Negative (Negative); Nitrate Urine Negative (Negative); Protein Urine Trace (Negative); Urine Appearance Clear (CLEAR); Urine Color Yellow (Yellow); Urobilinogen Urine Norm (Negative); pH Urine 6 (5-7)
[2024-09-11 14:27] LABS: Amphetamines Screen Urine Positive (Negative); Barbiturates Screen Urine Negative (Negative); Benzodiazepines Screen Urine Negative (Negative); Cocaine Screen Urine Negative (Negative); Opiate Screen Urine Negative (Negative); PCP Screen Urine Negative (Negative); THC Screen Urine Positive (Negative)
[2024-09-11] MEDS: ALPRAZolam 0.5 mg Tablet PO (15:04)
[2024-09-11 15:09] VITALS: BP 172/104; PULSE 98; O2SAT 91
== END 2024-09-11 15:10 | disposition home or self-care (01) ==
PROVIDERS: Emergency Provider Emergency Medicine; PCP Nurse Practitioner Family
DX: R42 Dizziness and giddiness (principal); F15.10 Other stimulant abuse, uncomplicated
CPT/HCPCS: 36415; 36416; 70450; 70496; 70498; 71045; 80053; 80306; 81001; 82962; 85025; 85610; 85730; 93005; 96361; 96374; 99285; J2060; J7030; J9999

== ENCOUNTER 2024-09-17 11:47 | Emergency (ER) | payer SELFPAY ==
[2024-09-17 11:58] VITALS: BP 183/105; PULSE 97; RESP 16; TEMP 36.6; O2SAT 97
--- NOTE | 2024-09-17 12:09 | ED_ITS ---
HPI - Alcohol 2 General: Chief Complaint: Alcohol Stated Complaint: detox Time Seen by Provider: 09/17/24 11:56 History of Present Illness: Patient presents to the ER stating he is an alcoholic and he wants help with detox. He says he his last drink was 20 minutes ago. He says he normally drinks 1/5 of vodka per day. Patient says he had 3 beers and 1 shot of vodka today. Patient states he normally does not take very good care of himself he does see the person over at [facility] and has high blood pressure and should be on losartan 25 mg daily but he does not take it very often. Patient states he feels like his body is shutting down, his kidneys are hurting and he knows he has a bad liver. Related Data Home Medications ?Medication ?Instructions ?Recorded ?Confirmed losartan 25 mg tablet 25 mg PO DAILY 09/11/2412/06 Previous Rx's ?Medication ?Instructions ?Recorded amoxicillin 500 mg capsule 500 mg PO TID #30 caps 08/13 chlordiazepoxide HCl 10 mg capsule 10 mg PO Q8H PRN wi thdrawal 09/17/24 symptoms #14 caps losartan 25 mg tablet 25 mg PO DAILY #30 tabs 12/06 Allergies Allergy/AdvReac Type Severity Reaction Status Date / Time No Known Allergies Allergy Verified 09/11/24 12:35 Review of Systems 2 General: Reports: 10 or more systems reviewed and unremarkable except in HPI and below PFSH ED 2 PFSH: Medical History Alcohol withdrawal syndrome No pertinent family history Surgical History No pertinent past surgical history Family History Mother CAD (coronary artery disease) Social History Smoking and tobacco/nicotine status: never used tobacco/nicotine Alcohol intake: current Alcohol intake frequency: 3 or more drinks per day Substance/Drug Use: current Physical Exam 2 Const: COMMON NORMALS: no acute distress, average body habitus, patient oriented x3, no limitations, healthy appearing, alert and well nourished HENMT: COMMON NORMALS: normocephalic, atraumatic, hearing grossly normal bilaterally, external ears normal, Normal external nose present, moist oral mucous membranes and oropharynx normal HEAD & SCALP: normocephalic and atraumatic NOSE: Normal external nose present EXTERNAL EAR: Yes external ears normal Eye: COMMON NORMALS: Equal, round and reactive pupils present, EOMs intact bilaterally, conjunctivae normal and no scleral icterus CONJUNCTIVA: Yes conjunctivae normal PUPIL: Yes Equal, round and reactive pupils present Neck/C-Spine: COMMON NORMALS: full ROM, no lymphadenopathy, supple, no meningeal signs and no JVD Chest: COMMONS NORMALS: normal inspection of the chest and normal palpation of entire chest wall Resp: COMMON NORMALS: normal respiratory effort, No retractions, No use of accessory muscles and clear to auscultation bilaterally AUSCULTATION: clear to auscultation bilaterally Cardio: COMMON NORMALS: no JVD, regular rate, regular rhythm, S1 normal heart sound present, S2 normal heart sound present, No gallops present (Cardio), No clicks present (Cardio), No murmurs present (Cardio) and No rub (Cardio) R ATE: regular rate RHYTHM: regular rhythm HEART SOUNDS: S1 normal heart sound present and S2 normal heart sound present GI: COMMON NORMALS: Normal to inspection, nondistended, normoactive bowel sounds present, Soft to palpation, non-tender, No hepatosplenomegaly present and no masses PALPATION: Yes Soft to palpation and Yes No hepatosplenomegaly present Neuro: COMMON NORMALS: patient oriented x3 SENSORIUM/ORIENTATION: Yes alert MENINGEAL SIGNS: Yes no meningeal signs Course 2 Vital Signs: Vital signs: Vital Signs Temperature 97.9 F 09/17/24 11:58 Pulse Rate 97 09/17/24 11:58 Respiratory Rate 16 09/17/24 11:58 Blood Pressure 183/105 09/17/24 11:58 Pulse Oximetry 97 09/17/24 11:58 Oxygen Delivery Me thod Room Air 09/17/24 11:58 MDM - Alcohol Medical Decision Making Lab work was obtained, patient was given 2 mg Ativan IV, extensive education was talking about inpatient versus outpatient detox and that we do not do do that here. Patient will be discharged home. Medical Records I reviewed the patient's medical records. Lab Data I reviewed the patient's lab results. 09/17/24 12:45 09/17/24 12:45 Radiology Impressions Chest X-Ray 09/17/24 12:25 IMPRESSION: No acute findings. Laboratory Results WBC 7.30 10^3/uL (3.29-11.43) 09/17/24 12:45 RBC 4.72 10^6/uL (3.85-5.65) 09/17/24 12:45 Hgb 14.90 g/dL (11.27-16.99) 09/17/24 12:45 Hct 42.4 % (37-53) 09/17/24 12:45 MCV 89.8 fl (82-101) 09/17/24 12:45 MCH 31.6 pg (27-33) 09/17/24 12:45 MCHC 35.1 g/dL (30-55) 09/17/24 12:45 RDW 14.3 % (12.1-15.1) 09/17/24 12:45 Plt Count 277 10^3/cmm (157-399) 09/17/24 12:45 MPV 10.2 fL (7.4-10.4) 09/17/24 12:45 Neut % (Auto) 65.2 % 09/17/24 12:45 Lymph % (Auto) 26.6 % 09/17/24 12:45 [place] % (Auto) 6.4 % 09/17/24 12:45 Eos % (Auto) 0.7 % 09/17/24 12:45 Baso % (Auto) 0.8 % 09/17/24 12:45 Neut # (Auto) 4.76 10^3/uL (1.8-7.7) 09/17/24 12:45 Lymph # (Auto) 1.9 10^3/uL (0.8-4.8) 09/17/24 12:45 [place] # (Auto) 0.5 10^3/uL (0.2-0.9) 09/17/24 12:45 Eos # (Auto) 0.1 10^3/uL (0.0-0.8) 09/17/24 12:45 Baso # (Auto) 0.1 10^3/uL (0.0-0.1) 09/17/24 12:45 Nucleated RBC % (auto) 0 % 09/17/24 12:45 Nucleated RBCs # 0.0 /100WBC 09/17/24 12:45 PT 12.10 SECONDS (12.1-14.9) 09/17/24 12:45 INR 0.84 (0.8-1.2) 09/17/24 12:45 Sodium 139 mmol/L (136-145) 09/17/24 12:45 Potassium 3.5 mmol/L (3.5-5.1) 09/17/24 12:45 Chloride 100 mmol/L (98-107) 09/17/24 12:45 Carbon Dioxide 21 mmol/L (22-29) L 09/17/24 12:45 Anion Gap 21.5 (5-19) H 09/17/24 12:45 BUN 11 mg/dL (6-20) 09/17/24 12:45 Creatinine 0.7 mg/dL (0.7-1.2) 09/17/24 12:45 GFR Calculation 120.9 mL/min (90-130) 09/17/24 12:45 Glucose 99 mg/dL (65-115) 09/17/24 12:45 Calculated Osmolality 287 mOsm/kg (285-295) 09/17/24 12:45 Calcium 9.1 mg/dL (8.5-10.5) 09/17/24 12:45 Magnesium 1.9 mg/dL (1.7-2.3) 09/17/24 12:45 Total Bilirubin 0.4 mg/dL (0.15-1.2) 09/17/24 12:45 AST 56 U/L (0-40) H 09/17/24 12:45 ALT 38 U/L (0-41) 09/17/24 12:45 Alkaline Phosphatase 113 U/L (40-130) 09/17/24 12:45 Total Protein 7.8 g/dL (6.6-8.7) 09/17/24 12:45 Albumin 4.7 g/dL (3.5-5.2) 09/17/24 12:45 Globulin 3.1 g/dL (1.3-4.6) 09/17/24 12:45 TSH 1.71 uIU/mL (0.27-4.20) 09/17/24 12:45 Urine Color Yellow (Yellow) 09/17/24 11:50 Urine Appearance Clear (CLEAR) 09/17/24 11:50 Urine pH 8 (5-7) A 09/17/24 11:50 Ur Specific [place] 1.005 (1.005-1.030) 09/17/24 11:50 Urine Protein Neg (Negative) 09/17/24 11:50 Urine Glucose (UA) Norm (Normal) 09/17/24 11:50 Urine Ketones Negative (Negative) 09/17/24 11:50 Urine Blood Neg (Negative) 09/17/24 11:50 Urine Nitrate Negative (Negative) 09/17/24 11:50 Urine Bilirubin Neg (Negative) 09/17/24 11:50 Urine Urobilinogen Neg mg/dL (Negative) 09/17/24 11:50 Ur Leukocyte Esterase Negative (Negative) 09/17/24 11:50 Urine RBC 0-2 /hpf (0-2) 09/17/24 11:50 Urine WBC 0-5 /hpf (0-5) 09/17/24 11:50 Ur Squamous Epith Cells 0-5 /hpf (0-5) 09/17/24 11:50 Amorphous Sediment Not Reportable 09/17/24 11:50 Urine Bacteria None seen /hpf (NONE) 09/17/24 11:50 Hyaline Casts 0-4 /lpf H 09/17/24 11:50 Salicylates < 0.3 mg/dL (3-10) L 09/17/24 12:45 Urine Opiates Screen Negative ng/mL (Negative) 09/17/24 11:50 Acetaminophen 13.0 ug/mL (10-30) 09/17/24 12:45 Ur Barbiturates Screen Negative ng/mL (Negative) 09/17/24 11:50 Ur Phencyclidine Scrn Negative ng/mL (Negative) 09/17/24 11:50 Ur Amphetamines Screen Negative ng/mL (Negative) 09/17/24 11:50 U Benzodiazepines Scrn Negative ng/mL (Negative) 09/17/24 11:50 Urine Cocaine Screen Negative ng/mL (Negative) 09/17/24 11:50 U Marijuana (THC) Screen Positive ng/mL (Negative) H 09/17/24 11:50 Ethyl Alcohol 170 mg/dL (0-10) H 09/17/24 12:45 All radiology interpretation(s) finalized by discharge Discharge Plan Discharge Patient Disposition: Home Clinical Impression: Alcoholic intoxication Condition: Stable Prescriptions: New losartan 25 mg tablet 25 mg PO DAILY Qty: 30 0RF chlordiazepoxide HCl 10 mg capsule 10 mg PO Q8H PRN (Reason: withdrawal symptoms) Qty: 14 0RF No Action amoxicillin 500 mg capsule 500 mg PO TID Qty: 30 0RF losartan 25 mg tablet 25 mg PO DAILY Discharge Orders: Discharge ED (Routine); Ordered 09/17/24 Ordered By: Yakov Velasquez Referrals: Karen Menchaca FNP [Primary Care Provider] - 1 week Patient Instructions: Alcohol Dependence (ED), Alcohol Intoxication (DC) Activity Restrictions/Additional Instructions: Thank you for choosing [facility] for your healthcare needs today. Please realize that you were seen in the emergency department and that we are providing you with an emergency medical screening exam and this may not be a complete and all exclusive of all testing and/or medical workup we may need to determine your element or severity of your illness. It is very important that you follow-up as instructed with your primary care provider or specialist for the additional evaluation and to discuss your medical treatment plan. You may return to the emergency department should you have concerns or if your condition changes or worsens in any way. Print Language: Monegasque Coding Level of Care Code ED Package Crimper for Jt Sow
--- NOTE | 2024-09-17 12:16 | ECG_ITS ---
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
--- NOTE | 2024-09-17 12:25 | XRR_ITS ---
PROCEDURE INFORMATION: Exam: XR Chest Exam date and time: 09/17/2024 12:34 PM Age: 49 years old Clinical indication: Other: HTN; Chest pain; Hypertension; Alcohol detox TECHNIQUE: Imaging protocol: Radiologic exam of the chest. Views: 1 view. COMPARISON: CR XR chest 1V portable [id number] 09/11/2024 12:47 PM FINDINGS: Lungs: Unremarkable. No consolidation. Pleural spaces: Unremarkable. No pleural effusion. No pneumothorax. Heart/Mediastinum: Unremarkable. No cardiomegaly. Bones/joints: Unremarkable. XR/XR chest 1V portable [id number] IMPRESSION: No acute findings.
[2024-09-17 12:43] LABS: Bacteria Urine None Seen /hpf; Hyaline Casts Urine 0-4 /lpf; RBC Urine 0-2 /hpf (0-2); Squamous Epithelial Cell Urine 0-5 /hpf (0-5); WBC Urine 0-5 /hpf (0-5)
[2024-09-17 12:44] LABS: Add Urine Microscopic? YES; Bilirubin Urine Neg (Negative); Blood Urine Neg (Negative); Glucose Urine UA Norm (Normal); Ketones Urine Negative (Negative); Leukocyte Esterase Urine Negative (Negative); Nitrate Urine Negative (Negative); Protein Urine Neg (Negative); Specific Gravity, Urine 1.005 (1.005-1.030); Urine Appearance Clear (CLEAR); Urine Color Yellow (Yellow); Urobilinogen Urine Neg (Negative); pH Urine 8 (5-7)
[2024-09-17 12:49] LABS: Amphetamines Screen Urine Negative (Negative); Barbiturates Screen Urine Negative (Negative); Benzodiazepines Screen Urine Negative (Negative); Cocaine Screen Urine Negative (Negative); Opiate Screen Urine Negative (Negative); PCP Screen Urine Negative (Negative); THC Screen Urine Positive (Negative)
[2024-09-17 12:54] LABS: Basophils # 0.1 10^3/uL (0.0-0.1); Basophils % 0.8 %; Eosinophils # 0.1 10^3/uL (0.0-0.8); Eosinophils % 0.7 %; Hematocrit 42.4 % (37-53); Lymphocytes # 1.9 10^3/uL (0.8-4.8); Lymphocytes % 26.6 %; Mean Corpuscular HGB Conc 35.1 g/dL (30-55); Mean Corpuscular Hemoglobin 31.6 pg (27-33); Mean Corpuscular Volume 89.8 fl (82-101); Mean Platelet Volume 10.2 fL (7.4-10.4); Monocytes # 0.5 10^3/uL (0.2-0.9); Monocytes % 6.4 %; Neutrophils # 4.76 10^3/uL (1.8-7.7); Neutrophils % 65.2 %; Nucleated Red Blood Cells % 0 %; Platelet Count 277 10^3/cmm (157-399); Red Blood Count 4.72 10^6/uL (3.85-5.65); Red Cell Distribution Width 14.3 % (12.1-15.1)
[2024-09-17] MEDS: LORazepam 2 mg/mL INJ 1 mL IVP ×2 (13:03→16:52)
[2024-09-17 13:05] LABS: INR 0.84 (0.8-1.2)
[2024-09-17 13:24] LABS: Alanine Aminotransferase 38 U/L (0-41); Albumin Level 4.7 g/dL (3.5-5.2); Alcohol Level 170 mg/dL (0-10); Alkaline Phosphatase 113 U/L (40-130); Anion Gap 21.5 (5-19); Aspartate Amino Transferase 56 U/L (0-40); Blood Urea Nitrogen 11 mg/dL (6-20); Calcium 9.1 mg/dL (8.5-10.5); Carbon Dioxide 21 mmol/L (22-29); Chloride 100 mmol/L (98-107); Creatinine Clr Calc Pharmacy 146.1067; Globulin 3.1 g/dL (1.3-4.6); Glomerular Filtration Rate 120.9 mL/min (90-130); Glucose 99 mg/dL (65-115); Magnesium 1.9 mg/dL (1.7-2.3); Osmolality Calculated 287 mOsm/kg (285-295); Potassium 3.5 mmol/L (3.5-5.1); Sodium 139 mmol/L (136-145); Thyroid Stimulating Hormone 1.71 uIU/mL (0.27-4.20); Total Bilirubin 0.4 mg/dL (0.15-1.2); Total Protein 7.8 g/dL (6.6-8.7)
[2024-09-17 13:25] LABS: Salicylate < 0.3 mg/dL (3-10)
[2024-09-17 16:56] VITALS: BP 181/123; PULSE 86; O2SAT 97
== END 2024-09-17 16:58 | disposition home or self-care (01) ==
PROVIDERS: Emergency Provider Emergency Medicine; PCP Nurse Practitioner Family
DX: F10.129 Alcohol abuse with intoxication, unspecified (principal); Y90.6 Blood alcohol level of 120-199 mg/100 ml
CPT/HCPCS: 36415; 71045; 80053; 80306; 80307; 81001; 83735; 84443; 85025; 85610; 93005; 96374; 96376; 99285; J2060

== ENCOUNTER 2024-09-22 13:23 | Inpatient (IN) | payer SELFPAY ==
[2024-09-22 13:38] VITALS: BP 156/79; PULSE 109; RESP 17; TEMP 37.2; O2SAT 96; BMI 26.5
--- NOTE | 2024-09-22 14:00 | ED.C_ITS ---
HPI - Psych 2 General: Chief Complaint: Psychiatric Symptoms Stated Complaint: SI Time Seen by Provider: 09/22/24 13:32 Source: patient Mode of arrival: ambulatory Limitations: no limitations History of Present Illness: Patient came here few days ago wanting to quit drinking. He was given some medication to try and help and he also saw [facility]. Patient then has been staying at the [facility] for the past couple days drinking very heavily. Last drink was 3 hours ago. Patient reports he is feeling some withdrawals now. He has had no sudden taper other than 3 hours without alcohol. He reports he would go buy a gun and shoot himself as a method for SI. No HI no AVH. complaint: suicidal ideation and feels depressed Associated symptoms: Deny delusions Related Data Previous Rx's ?Medication ?Instructions ?Recorded amoxicillin 500 mg capsule 500 mg PO TID #30 caps 08/13 chlordiazepoxide HCl 10 mg capsule 10 mg PO Q8H PRN wi thdrawal 09/17/24 symptoms #14 caps losartan 25 mg tablet 25 mg PO DAILY #30 tabs 12/06 Allergies Allergy/AdvReac Type Severity Reaction Status Date / Time No Known Allergies Allergy Verified 09/11/24 12:35 Review of Systems 2 General: Reports: 10 or more systems reviewed and unremarkable except in HPI and below PFSH ED 2 PFSH: Medical History Alcohol withdrawal syndrome No pertinent family history Surgical History No pertinent past surgical history Family History Mother CAD (coronary artery disease) Social History Smoking and tobacco/nicotine status: never used tobacco/nicotine Alcohol intake: current Alcohol intake frequency: 3 or more drinks per day Substance/Drug Use: current Physical Exam 2 Const: COMMON NORMALS: no acute distress, average body habitus, patient oriented x3, healthy appearing, alert and well nourished GENERAL APPEARANCE: well developed HENMT: COMMON NORMALS: normocephalic, atraumatic, external ears normal and moist oral mucous membranes HEAD & SCALP: normocephalic and atraumatic E XTERNAL EAR: Yes external ears normal Eye: COMMON NORMALS: Equal, round and reactive pupils present, EOMs intact bilaterally and conjunctivae normal CONJUNCTIVA: Yes conjunctivae normal P UPIL: Yes Equal, round and reactive pupils present Neck/C-Spine: COMMON NORMALS: full ROM, no lymphadenopathy and supple Chest: CHEST: Yes Symmetrical chest wall rise and No Surgical scars present (Chest) Resp: COMMON NORMALS: normal respiratory effort, No retractions, No use of accessory muscles and clear to auscultation bilaterally AUSCULTATION: clear to auscultation bilaterally Cardio: COMMON NORMALS: regular rate, regular rhythm, S1 normal heart sound present, S2 normal heart sound present, No gallops present (Cardio), No clicks present (Cardio), No murmurs present (Cardio) and No rub (Cardio) RATE: r egular rate RHYTHM: regular rhythm HEART SOUNDS: S1 normal heart sound present, S2 normal heart sound present and no murmurs PERIPHERAL PULSES: o ther (Radial pulses 2+ and symmetric) GI: COMMON NORMALS: Soft to palpation, non-tender and no masses INSPECTION: No abdominal distension PALPATION: Yes Soft to palpation, No Guarding due to palpation present (GI) and No Rebound tenderness present : COMMON NORMALS: Yes no CVA tenderness BLADDER/KIDNEY EXAM: Yes no CVA tenderness Back/Pelvis: COMMON NORMALS: no CVA tenderness Extremity: COMMON NORMALS: normal to inspection, full ROM, capillary refill normal and no clubbing, cyanosis or edema Neuro: COMMON NORMALS: patient oriented x3 SENSORIUM/ORIENTATION: Yes alert Psych: COMMON NORMALS: mental status grossly normal, cooperative, speech normal, activity/motor behavior normal, denies hallucinations and denies homicidal ideation APPEARANCE: Yes disheveled ATTITUDE: Yes calm A CTIVITY/MOTOR BEHAVIOR: Yes appropriate eye contact and Yes fidgeting SPEECH: Yes normal speech MOOD & AFFECT: Yes depressed mood and Yes anxious T HOUGHT CONTENT: Yes Suicidality present, No Homicidality present, No delusions and No Hallucination(s) present Skin: COMMON NORMALS: no rashes or lesions noted, no wounds, turgor normal and no jaundice GENERAL SKIN EXAM: no rashes or lesions noted and turgor normal Course 2 Vital Signs: Vital signs: Vital Signs Temperature 98.9 F 09/22/24 13:38 Pulse Rate 109 H 09/22/24 13:38 Respiratory Rate 17 09/22/24 13:38 Blood Pressure 156/79 09/22/24 13:38 Pulse Oximetry 96 09/22/24 13:38 Oxygen Delivery Me thod Room Air 09/22/24 13:38 [facility] - Psych Medical Decision Making Placed on-year-old male with alcoholism and suicidal ideation. Plan to buy a gun and kill himself. Patient placed on a hold and accepted to psych by Dr. Brown Differential Diagnosis Likely acute psychosis, suicidal ideation, depression and drug-induced psychotic disorder Medical Records I reviewed the patient's medical records. Lab Data I reviewed the patient's lab results. 09/22/24 14:00 09/22/24 14:00 Laboratory Results WBC 4.58 10^3/uL (3.29-11.43) 09/22/24 14:00 RBC 4.72 10^6/uL (3.85-5.65) 09/22/24 14:00 Hgb 15.10 g/dL (11.27-16.99) 09/22/24 14:00 Hct 43.5 % (37-53) 09/22/24 14:00 MCV 92.2 fl (82-101) 09/22/24 14:00 MCH 32.0 pg (27-33) 09/22/24 14:00 MCHC 34.7 g/dL (30-55) 09/22/24 14:00 RDW 14.9 % (12.1-15.1) 09/22/24 14:00 Plt Count 280 10^3/cmm (157-399) 09/22/24 14:00 MPV 10.4 fL (7.4-10.4) 09/22/24 14:00 Neut % (Auto) 50.2 % 09/22/24 14:00 Lymph % (Auto) 36.5 % 09/22/24 14:00 Kimble % (Auto) 8.5 % 09/22/24 14:00 Eos % (Auto) 3.5 % 09/22/24 14:00 Baso % (Auto) 1.1 % 09/22/24 14:00 Neut # (Auto) 2.30 10^3/uL (1.8-7.7) 09/22/24 14:00 Lymph # (Auto) 1.7 10^3/uL (0.8-4.8) 09/22/24 14:00 Kimble # (Auto) 0.4 10^3/uL (0.2-0.9) 09/22/24 14:00 Eos # (Auto) 0.2 10^3/uL (0.0-0.8) 09/22/24 14:00 Baso # (Auto) 0.1 10^3/uL (0.0-0.1) 09/22/24 14:00 Nucleated RBC % (auto) 0 % 09/22/24 14:00 Nucleated RBCs # 0.0 /100WBC 09/22/24 14:00 Sodium 140 mmol/L (136-145) 09/22/24 14:00 Potassium 3.8 mmol/L (3.5-5.1) 09/22/24 14:00 Chloride 104 mmol/L (98-107) 09/22/24 14:00 Carbon Dioxide 24 mmol/L (22-29) 09/22/24 14:00 Anion Gap 15.8 (5-19) 09/22/24 14:00 BUN 9 mg/dL (6-20) 09/22/24 14:00 Creatinine 0.6 mg/dL (0.7-1.2) L 09/22/24 14:00 GFR Calculation 144.4 mL/min (90-130) H 09/22/24 14:00 Glucose 105 mg/dL (65-115) 09/22/24 14:00 Calculated Osmolality 289 mOsm/kg (285-295) 09/22/24 14:00 Calcium 8.6 mg/dL (8.5-10.5) 09/22/24 14:00 Total Bilirubin 0.3 mg/dL (0.15-1.2) 09/22/24 14:00 AST 46 U/L (0-40) H 09/22/24 14:00 ALT 30 U/L (0-41) 09/22/24 14:00 Alkaline Phosphatase 112 U/L (40-130) 09/22/24 14:00 Total Protein 7.7 g/dL (6.6-8.7) 09/22/24 14:00 Albumin 4.8 g/dL (3.5-5.2) 09/22/24 14:00 Globulin 2.9 g/dL (1.3-4.6) 09/22/24 14:00 Urine Color Yellow (Yellow) 09/22/24 16:47 Urine Appearance Clear (CLEAR) 09/22/24 16:47 Urine pH 7 (5-7) 09/22/24 16:47 Ur Specific Colton 1.010 (1.005-1.030) 09/22/24 16:47 Urine Protein Trace (Negative) 09/22/24 16:47 Urine Glucose (UA) Norm (Normal) 09/22/24 16:47 Urine Ketones Negative (Negative) 09/22/24 16:47 Urine Blood Neg (Negative) 09/22/24 16:47 Urine Nitrate Negative (Negative) 09/22/24 16:47 Urine Bilirubin Neg (Negative) 09/22/24 16:47 Urine Urobilinogen Norm mg/dL (Negative) 09/22/24 16:47 Ur Leukocyte Esterase Negative (Negative) 09/22/24 16:47 Urine RBC 3-5 /hpf (0-2) 09/22/24 16:47 Urine WBC 0-5 /hpf (0-5) 09/22/24 16:47 Ur Squamous Epith Cells 0-5 /hpf (0-5) 09/22/24 16:47 Amorphous Sediment Not Reportable 09/22/24 16:47 Urine Bacteria None seen /hpf (NONE) 09/22/24 16:47 Hyaline Casts 0-4 /lpf H 09/22/24 16:47 Salicylates 0.6 mg/dL (3-10) L 09/22/24 14:00 Urine Opiates Screen Negative ng/mL (Negative) 09/22/24 16:47 Acetaminophen < 5.0 ug/mL (10-30) L 09/22/24 14:00 Ur Barbiturates Screen Negative ng/mL (Negative) 09/22/24 16:47 Ur Phencyclidine Scrn Negative ng/mL (Negative) 09/22/24 16:47 Ur Amphetamines Screen Negative ng/mL (Negative) 09/22/24 16:47 U Benzodiazepines Scrn Positive ng/mL (Negative) H 09/22/24 16:47 Urine Cocaine Screen Negative ng/mL (Negative) 09/22/24 16:47 U Marijuana (THC) Screen Positive ng/mL (Negative) H 09/22/24 16:47 Ethyl Alcohol 355 mg/dL (0-10) H* 09/22/24 14:00 No radiology studies performed this visit Discharge Plan Discharge Patient Disposition: Admitted As Inpatient Clinical Impression: Alcoholic intoxication, Suicidal ideation Condition: Stable Prescriptions: No Action amoxicillin 500 mg capsule 500 mg PO TID Qty: 30 0RF losartan 25 mg tablet 25 mg PO DAILY Qty: 30 0RF chlordiazepoxide HCl 10 mg capsule 10 mg PO Q8H PRN (Reason: withdrawal symptoms) Qty: 14 0RF Referrals: Karen Menchaca FNP [Primary Care Provider] - Print Language: Tuvaluan Coding Level of Care Code ED Financial Aid Director for [facility]
[2024-09-22 14:07] LABS: Basophils # 0.1 10^3/uL (0.0-0.1); Basophils % 1.1 %; Eosinophils # 0.2 10^3/uL (0.0-0.8); Eosinophils % 3.5 %; Hematocrit 43.5 % (37-53); Lymphocytes # 1.7 10^3/uL (0.8-4.8); Lymphocytes % 36.5 %; Mean Corpuscular HGB Conc 34.7 g/dL (30-55); Mean Corpuscular Volume 92.2 fl (82-101); Mean Platelet Volume 10.4 fL (7.4-10.4); Monocytes # 0.4 10^3/uL (0.2-0.9); Monocytes % 8.5 %; Neutrophils % 50.2 %; Nucleated Red Blood Cells % 0 %; Platelet Count 280 10^3/cmm (157-399); Red Blood Count 4.72 10^6/uL (3.85-5.65); Red Cell Distribution Width 14.9 % (12.1-15.1); White Blood Count 4.58 10^3/uL (3.29-11.43)
[2024-09-22 14:24] LABS: Acetaminophen < 5.0 ug/mL (10-30); Alanine Aminotransferase 30 U/L (0-41); Albumin Level 4.8 g/dL (3.5-5.2); Alkaline Phosphatase 112 U/L (40-130); Anion Gap 15.8 (5-19); Aspartate Amino Transferase 46 U/L (0-40); Blood Urea Nitrogen 9 mg/dL (6-20); Calcium 8.6 mg/dL (8.5-10.5); Carbon Dioxide 24 mmol/L (22-29); Chloride 104 mmol/L (98-107); Creatinine Clr Calc Pharmacy 166.5518; Globulin 2.9 g/dL (1.3-4.6); Glomerular Filtration Rate 144.4 mL/min (90-130); Glucose 105 mg/dL (65-115); Osmolality Calculated 289 mOsm/kg (285-295); Potassium 3.8 mmol/L (3.5-5.1); Salicylate 0.6 mg/dL (3-10); Sodium 140 mmol/L (136-145); Total Bilirubin 0.3 mg/dL (0.15-1.2); Total Protein 7.7 g/dL (6.6-8.7)
[2024-09-22 14:26] LABS: Alcohol Level 355 mg/dL (0-10)
--- NOTE | 2024-09-22 14:58 | PC.NURSE ---
96 hour hold rights read and reviewed with patient. Nicolas from security present during reading of rights. Copy of rights given to patient. Patient verbalized understandings.
[2024-09-22] MEDS: chlordiazePOXIDE 25 mg Capsule PO (15:14)
[2024-09-22] MEDS: ondansetron hcl ODT 4 mg Tab PO (15:15)
[2024-09-22 17:24] LABS: Bacteria Urine None Seen /hpf; Hyaline Casts Urine 0-4 /lpf; Squamous Epithelial Cell Urine 0-5 /hpf (0-5); WBC Urine 0-5 /hpf (0-5)
[2024-09-22 17:26] LABS: Add Urine Culture? No; Add Urine Microscopic? YES; Bilirubin Urine Neg (Negative); Blood Urine Neg (Negative); Glucose Urine UA Norm (Normal); Ketones Urine Negative (Negative); Leukocyte Esterase Urine Negative (Negative); Nitrate Urine Negative (Negative); Protein Urine Trace (Negative); Urine Appearance Clear (CLEAR); Urine Color Yellow (Yellow); Urobilinogen Urine Norm (Negative); pH Urine 7 (5-7)
[2024-09-22 17:27] LABS: Amphetamines Screen Urine Negative (Negative); Barbiturates Screen Urine Negative (Negative); Benzodiazepines Screen Urine Positive (Negative); Cocaine Screen Urine Negative (Negative); Opiate Screen Urine Negative (Negative); PCP Screen Urine Negative (Negative); THC Screen Urine Positive (Negative)
[2024-09-22 17:49] VITALS: BP 147/90; PULSE 100; RESP 17; TEMP 37.1; O2SAT 95
[2024-09-22 21:03] VITALS: BP 147/90; PULSE 100; RESP 17; TEMP 37.1; O2SAT 95
[2024-09-22] MEDS: LORazepam 2 mg Tablet PO (22:44)
[2024-09-22] MEDS: trazodone 50 mg Tablet PO (22:45)
[2024-09-22] MEDS: acetaminophen 325 mg Tablet 650 MG PO (22:45)
[2024-09-22] MEDS: ondansetron 4 MG Tablet PO (22:45)
[2024-09-23] VITALS (7 sets, daily range): BP systolic 115–163; BP diastolic 74–90; PULSE 83–98; RESP 17–18; TEMP 36.6–37; O2SAT 94–98
[2024-09-23] MEDS: multivitamin therapeutic Tablet 1 TAB PO (08:47)
[2024-09-23] MEDS: acetaminophen 325 mg Tablet 650 MG PO ×2 (08:47→22:51)
[2024-09-23] MEDS: losartan 50 mg Tablet 25 MG PO (08:47)
[2024-09-23] MEDS: thiamine 100 mg Tablet PO (08:47)
[2024-09-23] MEDS: folic acid 1 mg Tablet PO (08:47)
[2024-09-23] MEDS: LORazepam 2 mg Tablet PO ×4 (08:47→22:51)
[2024-09-23] MEDS: ondansetron 4 MG Tablet PO (08:48)
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
--- NOTE | 2024-09-23 13:44 | PC.NURSE ---
Pt scored 24 on CIWA one hour later. Ativan given again.
--- NOTE | 2024-09-23 14:42 | PC.NURSE ---
Scored pt on CIWA one hour later again. He is resting in bed with eyes closed at this time. Will score pt again at 1600.
--- NOTE | 2024-09-23 16:08 | PC.NURSE ---
CIWA protocol for 1600, pt resting in bed with eyes closed, snoring.
[2024-09-23] MEDS: trazodone 50 mg Tablet PO (22:51)
[2024-09-23] MEDS: nicotine 4 mg lozenge MUCOUS MEM (22:52)
[2024-09-24 04:00] VITALS: BP 132/79; PULSE 85; RESP 17; TEMP 37.1; O2SAT 97
--- NOTE | 2024-09-24 05:43 | PC.NURSE ---
vs not taken per [facility] nurse resp 16
[2024-09-24 06:00] VITALS: BMI 26.4
[2024-09-24 07:52] VITALS: BP 141/106; PULSE 91; RESP 18; TEMP 36.6; O2SAT 96
--- NOTE | 2024-09-24 08:58 | PC.NURSE ---
Pt states that he did not sleep well last night. He believes he is in the worst of his withdraws . He was denying hallucinations and SI/HI. He said that one hour ago he finally fell alseep and is unable to honestly answer his questions at this moment, he would like to just rest. He didn't feel that he needed anymore meds at this time.
[2024-09-24] MEDS: multivitamin therapeutic Tablet 1 TAB PO (09:07)
[2024-09-24] MEDS: thiamine 100 mg Tablet PO (09:07)
[2024-09-24] MEDS: fluoxetine 10 mg Capsule PO (09:07)
[2024-09-24] MEDS: losartan 50 mg Tablet 25 MG PO (09:07)
[2024-09-24] MEDS: folic acid 1 mg Tablet PO (09:07)
[2024-09-24 11:54] VITALS: BP 148/105; PULSE 89; RESP 18; TEMP 36.6; O2SAT 98
[2024-09-24] MEDS: LORazepam 2 mg Tablet PO ×2 (12:39→16:00)
--- NOTE | 2024-09-24 13:01 | PC.NURSE ---
Spoke with pt about his CIMS protocol. He scored a 15 and received Ativan per protocol. Pt cont to speak with me about his anxiety increasing as he is coming out of withdraw. He states that he would like to get into a half way house. He states that he did that last time he sobered up and it worked best for him. He states that he cannot safely return to the place he came from. I informed him that on Wednesday case management would help him look into this option. He also asked about the money that he came in with, I let him come to the nurses station and review his pt belonging sheet. This helped his anxiety to know what he still had on him, because he didn't remember.
[2024-09-24] MEDS: nicotine 4 mg lozenge MUCOUS MEM ×2 (15:55→18:15)
[2024-09-24 15:56] VITALS: BP 139/86; PULSE 93; RESP 18; TEMP 36.8; O2SAT 96
--- NOTE | 2024-09-24 17:13 | P.NPUPN_ITS ---
Subjective NPU 2 Subjective: 49-year-old male with alcohol dependence , major depressive disorder and PTSD admitted with suicidal ideation in the context of severe alcohol withdrawal. The patient had required Ativan 8 times yesterday for helping with withdrawal symptoms. Patient had required 2 additional Ativan's so far today. He had reported that he was feeling more supported here. He continued to endorse depressed mood. He reported no side effects from his medication. He had isolated himself in his room most of the day. He had expressed desire to restart a potential program for alcohol treatment either inpatient or outpatient as soon as possible. Mental Status Exam 2 MSE Comments: Patient appeared his stated age with a clayton complexion and was a healthy average body habitus. He was alert and oriented to person place time and situation. There was evidence of a mild tremor. There is no evidence of any abnormal involuntary motor movements. There was evidence of moderate psychomotor retardation. His speech was normal in regards to rate rhythm and prosody. His mood was described as depressed. His affect was mood congruent and restricted in range. His thought process was linear logical and goal- directed. His thought content revealed suicidal ideation with a plan to shoot himself with a gun though he reported no thoughts currently. He denied any homicidal ideation. He did not appear to be responding to internal stimuli. There was no evidence of delusional thinking. His recent and remote memory was intact. His insight appeared fair. His judgment was poor. His impulse control appeared limited. His intelligence appeared above average. Vitals/I&O/Wt Last Vital Signs Temp 98.2 F 09/24/24 15:56 Pulse 93 09/24/24 15:56 Resp 18 09/24/24 15:56 BP 139/86 09/24/24 15:56 Pulse Ox 96 09/24/24 15:56 O2 Del Method Room Air 09/24/24 04:00 Weight last 48 hrs Weight 83.642 kg Data NPU 09/22/24 14:00 09/22/24 14:00 A&P Assessment and plan (1) Suicidal ideation: (2) PTSD (post-traumatic stress disorder): (3) Major depressive disorder, recurrent severe without psychotic features: (4) Alcohol dependence: Plan 49-year-old male long history of depression and a history of multiple depressive episodes along with PTSD in the context of history of alcohol dependence currently endorsing suicidal ideation with a blood alcohol level of 355. #1.? Engage patient in individual milieu and group therapy. #2?? Recommend sober living treatment at the highest level of care to which the patient is willing to commit. #3??? CIWA for alcohol withdrawal #4?? TO-15 minute checks? #5?? Continue Prozac with increase to 20mg daily. PDMP PDMP Reviewed: Not Reviewed Involuntary Hold Information 2 Hold Status: Legal Status: 96 Hour Hold Date/Time Hold Expires: 0 09/28/24@14:00 Attestations NPU 2 Medical Necessity Statement*: Inpatient hospitalization is medically necessary and deemed to ?be ?the clinically appropriate intervention ?at this time.? We will monitor/initiate medications and make changes as indicated.? ? The patient?s likely length of stay 5-7 days. Coding Level of Care Code Acute Code for Chg Fwd Diagnoses Suicidal ideation R45.851 PTSD (post-traumatic stress disorder) F43.10 Major depressive disorder, recurrent severe without psychotic features F33.2 Alcohol dependence F10.20
--- NOTE | 2024-09-24 17:41 | PC.NURSE ---
ATIVAN 2 MG GIVEN PER CIWA PROTOCOL. SCORED 12 AT 1600. PT WAS ABLE TO GET UP AND EAT DINNER. STATES HE IS FEELING MUCH BETTER, ESPECIALLY AFTER HE ATE DINNER. [facility] RESCORED AT 2. NO ATIVAN NEEDED AT THIS TIME. SUPPORT VOICED. CONTINUES TO DRINK GATORADE TO RE-HYDRATE.
[2024-09-24 19:56] VITALS: BP 138/88; PULSE 94; RESP 17; TEMP 36.9; O2SAT 97
[2024-09-24] MEDS: trazodone 50 mg Tablet PO (20:57)
[2024-09-24] MEDS: hyDROXYzine 25 mg Capsule 50 MG PO (20:57)
[2024-09-25] VITALS (7 sets, daily range): BP systolic 130–141; BP diastolic 81–93; PULSE 74–85; RESP 16–18; TEMP 36.6–36.9; O2SAT 96–98
[2024-09-25] MEDS: trazodone 50 mg Tablet PO ×2 (00:43→20:34)
[2024-09-25] MEDS: OLANZapine 5 mg ODT PO ×2 (00:43→20:33)
[2024-09-25] MEDS: folic acid 1 mg Tablet PO (12:35)
[2024-09-25] MEDS: fluoxetine 10 mg Capsule 20 MG PO (12:35)
[2024-09-25] MEDS: losartan 50 mg Tablet 25 MG PO (12:35)
[2024-09-25] MEDS: multivitamin therapeutic Tablet 1 TAB PO (12:35)
[2024-09-25] MEDS: thiamine 100 mg Tablet PO (12:35)
--- NOTE | 2024-09-25 15:20 | PC.NURSE ---
Morning assessment During morning assessment, patient denies suicidal thoughts. Patient said that he made suicidal statements so he could be admitted for observation while detoxing from alcohol. Patient would like to get help for detoxing from alcohol, stating that he thought he was strong enough to take a couple of shots, but that he is not able to do that. patient cooperative. Patient denies AVh. Patient also denies alcohol withdrawals S/S during 0800 and 1200 CIWA scale protocol assessments. Polite and cooperative
--- NOTE | 2024-09-25 17:43 | P.NPUPN_ITS ---
Subjective NPU 2 Subjective: 49-year-old male with alcohol dependence , major depressive disorder and PTSD admitted with suicidal ideation in the context of severe alcohol withdrawal. Patient had required additional Ativan today for alcohol related withdrawal symptoms. He had reported that his mood had been improving. He had stated that he was feeling more hopeful and stated that he was wanting to get more support on an outpatient basis once stabilized here. He had reported some continued pain issues. He had reported no side effects from his medication regimen. Patient reported occasional feelings of hopelessness but stated that he was not feeling suicidal. He had been able to attend groups. He had reported some lack of social supports. Mental Status Exam 2 MSE Comments: Patient appeared his stated age with a clayton complexion and was a healthy average body habitus. He was alert and oriented to person place time and situation. There was evidence of a mild tremor. There is no evidence of any abnormal involuntary motor movements. There was evidence of moderate psychomotor retardation. His speech was normal in regards to rate rhythm and prosody. His mood was described as depressed. His affect was mood congruent and restricted in range. His thought process was linear logical and goal- directed. His thought content revealed no suicidal ideation tody. He denied any homicidal ideation. He did not appear to be responding to internal stimuli. There was no evidence of delusional thinking. His recent and remote memory was intact. His insight appeared fair. His judgment was poor. His impulse control appeared limited. His intelligence appeared above average. Vitals/I&O/Wt Last Vital Signs Temp 97.8 F 09/25/24 07:53 Pulse 74 09/25/24 16:00 Resp 16 09/25/24 16:00 BP 141/87 09/25/24 16:00 Pulse Ox 96 09/25/24 16:00 O2 Del Method Room Air 09/25/24 12:00 Weight last 48 hrs Weight 83.642 kg Data NPU 09/22/24 14:00 09/22/24 14:00 A&P Assessment and plan (1) Suicidal ideation: (2) PTSD (post-traumatic stress disorder): (3) Major depressive disorder, recurrent severe without psychotic features: (4) Alcohol dependence: Plan 49-year-old male long history of depression and a history of multiple depressive episodes along with PTSD in the context of history of alcohol dependence currently endorsing suicidal ideation with a blood alcohol level of 355. #1.? Engage patient in individual milieu and group therapy. #2?? Recommend sober living treatment at the highest level of care to which the patient is willing to commit. #3??? CIWA for alcohol withdrawal #4?? TO-15 minute checks? #5?? Continue Prozac 20mg daily for depression. Patient needs referral for PTSD and Depression on outpatient basis as well. Consider naltrexone to target cravings for alcohol. PDMP PDMP Reviewed: Not Reviewed Involuntary Hold Information 2 Hold Status: Legal Status: 96 Hour Hold Date/Time Hold Expires: 09/28/2024 @ 1400 Attestations NPU 2 Medical Necessity Statement*: Inpatient hospitalization is medically necessary and deemed to ?be ?the clinically appropriate intervention ?at this time.? We will monitor/initiate medications and make changes as indicated.? ? The patient?s likely length of stay 3-4 days. Coding Level of Care Code Acute Code for g Fwd Diagnoses Suicidal ideation R45.851 PTSD (post-traumatic stress disorder) F43.10 Major depressive disorder, recurrent severe without psychotic features F33.2 Alcohol dependence F10.20
[2024-09-25] MEDS: nicotine 4 mg lozenge MUCOUS MEM (20:34)
--- NOTE | 2024-09-26 00:18 | PC.NURSE ---
vs not collected resp 18 pt finally sleeping charge notified
[2024-09-26 04:00] VITALS: BP 135/82; PULSE 63; RESP 17; TEMP 36.6; O2SAT 97
[2024-09-26 08:00] VITALS: BP 142/98; PULSE 68; RESP 17; O2SAT 98
[2024-09-26] MEDS: multivitamin therapeutic Tablet 1 TAB PO (08:10)
[2024-09-26] MEDS: folic acid 1 mg Tablet PO (08:10)
[2024-09-26] MEDS: thiamine 100 mg Tablet PO (08:10)
[2024-09-26] MEDS: fluoxetine 10 mg Capsule 20 MG PO (08:10)
[2024-09-26] MEDS: losartan 50 mg Tablet 25 MG PO (08:11)
[2024-09-26 12:00] VITALS: BP 153/101; PULSE 84; RESP 17; O2SAT 96
[2024-09-26] MEDS: nicotine 4 mg lozenge MUCOUS MEM ×2 (12:09→20:52)
[2024-09-26 16:00] VITALS: BP 141/93; PULSE 73; RESP 16; O2SAT 96
--- NOTE | 2024-09-26 17:30 | P.NPUPN_ITS ---
Subjective NPU 2 Subjective: 49-year-old male with alcohol dependence , major depressive disorder and PTSD admitted with suicidal ideation in the context of severe alcohol withdrawal. Patient had not required as much Ativan yesterday. He had reported no withdrawal symptoms currently. He had continued to endorse depression and reported no side effects from his antidepressant at this time. He had reported hope about returning to work and resuming an intensive outpatient program if possible. He had stated that he may have a place to stay once he is stabilized here. He had been able to go to groups without any issue. He had reported improved sleep at this time. He had reported some pain issues. He had reported having less frequent suicidal thoughts. Mental Status Exam 2 MSE Comments: Patient appeared his stated age with a clayton complexion and was a healthy average body habitus. He was alert and oriented to person place time and situation. There was no evidence of a tremor. There is no evidence of any abnormal involuntary motor movements. There was evidence of mild psychomotor retardation. His speech was normal in regards to rate rhythm and prosody. His mood was described as a little better. His affect was restricted in range still. His thought process was linear logical and goal-directed. His thought content revealed no suicidal ideation today. He denied any homicidal ideation. He did not appear to be responding to internal stimuli. There was no evidence of delusional thinking. His recent and remote memory was intact. His insight appeared fair. His judgment was poor. His impulse control appeared limited. His intelligence appeared above average. Vitals/I&O/Wt Last Vital Signs Temp 97.8 F 09/26/24 04:00 Pulse 73 09/26/24 16:00 Resp 16 09/26/24 16:00 BP 141/93 09/26/24 16:00 Pulse Ox 96 09/26/24 16:00 O2 Del Method Room Air 09/26/24 04:00 Data NPU 09/22/24 14:00 09/22/24 14:00 A&P Assessment and plan (1) Suicidal ideation: (2) PTSD (post-traumatic stress disorder): (3) Major depressive disorder, recurrent severe without psychotic features: (4) Alcohol dependence: Plan 49-year-old male long history of depression and a history of multiple depressive episodes along with PTSD in the context of history of alcohol dependence currently endorsing suicidal ideation with a blood alcohol level of 355. #1.? Engage patient in individual milieu and group therapy. #2?? Recommend sober living treatment at the highest level of care to which the patient is willing to commit. #3??? CIWA for alcohol withdrawal #4?? TO-15 minute checks? #5?? Increase Prozac 30mg daily for depression. Patient needs referral for PTSD and Depression on outpatient basis as well. Consider naltrexone to target cravings for alcohol. PDMP PDMP Reviewed: Not Reviewed Involuntary Hold Information 2 Hold Status: Legal Status: 96 Hour Hold Date/Time Hold Expires: 09/28/2024 @ 1400 Attestations NPU 2 Medical Necessity Statement*: Inpatient hospitalization is medically necessary and deemed to ?be ?the clinically appropriate intervention ?at this time.? We will monitor/initiate medications and make changes as indicated.? ? The patient?s likely length of stay 2-3 days. Coding Level of Care Code Acute Code for g Fwd Diagnoses Suicidal ideation R45.851 PTSD (post-traumatic stress disorder) F43.10 Major depressive disorder, recurrent severe without psychotic features F33.2 Alcohol dependence F10.20
[2024-09-26] MEDS: diphenhydrAMINE 50 mg Capsule PO (18:03)
--- NOTE | 2024-09-26 18:36 | PC.NURSE ---
Following shower and use of soap bar on face, patient's face appears red and bumpy. Dr. Brown notified. Benadryl 50mg PO administered to patient. Will continue to monitor.
[2024-09-26 20:00] VITALS: BP 145/80; PULSE 80; RESP 18; TEMP 36.6; O2SAT 96
[2024-09-26] MEDS: LORazepam 2 mg Tablet PO (20:52)
[2024-09-26] MEDS: trazodone 50 mg Tablet PO (20:53)
[2024-09-26 22:06] VITALS: BP 139/96; PULSE 82; RESP 18; O2SAT 96
[2024-09-27] VITALS: BP 131/77; PULSE 77; RESP 18; O2SAT 98
[2024-09-27] MEDS: trazodone 50 mg Tablet PO (00:15)
[2024-09-27] MEDS: hyDROXYzine 25 mg Capsule 50 MG PO (00:15)
[2024-09-27 04:00] VITALS: BP 114/71; PULSE 68; RESP 16; TEMP 36.6; O2SAT 98
[2024-09-27 08:00] VITALS: BP 149/84; PULSE 69; RESP 16; TEMP 36.6; O2SAT 98
[2024-09-27] MEDS: fluoxetine 10 mg Capsule 20 MG PO (08:35)
[2024-09-27] MEDS: folic acid 1 mg Tablet PO (08:35)
[2024-09-27] MEDS: nicotine 4 mg lozenge MUCOUS MEM ×3 (08:35→21:17)
[2024-09-27] MEDS: losartan 50 mg Tablet 25 MG PO (08:35)
[2024-09-27] MEDS: multivitamin therapeutic Tablet 1 TAB PO (08:35)
[2024-09-27] MEDS: thiamine 100 mg Tablet PO (08:35)
[2024-09-27 11:54] VITALS: BP 150/98; PULSE 87; RESP 16; TEMP 35.3; O2SAT 95
[2024-09-27 16:00] VITALS: BP 143/87; PULSE 81; RESP 16; TEMP 36.8; O2SAT 98
--- NOTE | 2024-09-27 17:13 | P.NPUPN_ITS ---
Subjective NPU 2 Subjective: 49-year-old male with alcohol dependence , major depressive disorder and PTSD admitted with suicidal ideation in the context of severe alcohol withdrawal. Patient had not required any as needed medications today of Ativan. He had reported feeling more optimistic about the future. He had reported a reduction in cravings and reported that he was feeling less shaky. He reported no feelings of hopelessness or worthlessness at this time and stated that the suicidal thoughts had diminished. He had been hopeful about going to receive treatment at [facility] and was agreeable to considering IM Vivitrol once the patient's Medicaid had become active. Mental Status Exam 2 MSE Comments: Patient appeared his stated age with a healthy average body habitus. He was alert and oriented to person place time and situation. There was no evidence of a tremor. There is no evidence of any abnormal involuntary motor movements. There was evidence of mild psychomotor retardation. His speech was normal in regards to rate, rhythm, and prosody. His mood was described as a little better. His affect was restricted in range still. His thought process was linear, logical and goal-directed. His thought content revealed no suicidal ideation today. He denied any homicidal ideation. He did not appear to be responding to internal stimuli. There was no evidence of delusional thinking. His recent and remote memory was intact. His insight appeared fair. His judgment was poor. His impulse control appeared limited. His intelligence appeared above average. Vitals/I&O/Wt Last Vital Signs Temp 98.3 F 09/27/24 16:00 Pulse 81 09/27/24 16:00 Resp 16 09/27/24 16:00 BP 143/87 09/27/24 16:00 Pulse Ox 98 09/27/24 16:00 O2 Del Method Room Air 09/27/24 16:00 Data NPU 09/22/24 14:00 09/22/24 14:00 A&P Assessment and plan (1) Suicidal ideation: (2) PTSD (post-traumatic stress disorder): (3) Major depressive disorder, recurrent severe without psychotic features: (4) Alcohol dependence: Plan 49-year-old male long history of depression and a history of multiple depressive episodes along with PTSD in the context of history of alcohol dependence currently endorsing suicidal ideation with a blood alcohol level of 355. #1.? Engage patient in individual milieu and group therapy. #2?? Recommend sober living treatment at the highest level of care to which the patient is willing to commit. #3??? CIWA for alcohol withdrawal #4?? TO-15 minute checks? #5??Continue Prozac 20mg daily for depression. Patient needs referral for PTSD and Depression on outpatient basis as well. Consider naltrexone IM to target cravings for alcohol on outpatient basis. PDMP PDMP Reviewed: Not Reviewed Involuntary Hold Information 2 Hold Status: Legal Status: 96 Hour Hold Date/Time Hold Expires: 09/28/2024 @ 1400 Attestations NPU 2 Medical Necessity Statement*: Inpatient hospitalization is medically necessary and deemed to ?be ?the clinically appropriate intervention ?at this time.? We will monitor/initiate medications and make changes as indicated.? ? The patient?s likely length of stay 1-2 days. Coding Level of Care Code Acute Code for Chg Fwd Diagnoses Suicidal ideation R45.851 PTSD (post-traumatic stress disorder) F43.10 Major depressive disorder, recurrent severe without psychotic features F33.2 Alcohol dependence F10.20
[2024-09-27 20:00] VITALS: BP 136/92; PULSE 81; RESP 17; TEMP 36.8; O2SAT 97
[2024-09-28 01:58] VITALS: BP 110/68; PULSE 60; RESP 16; TEMP 36.4; O2SAT 98
[2024-09-28 06:00] VITALS: BP 114/67; PULSE 61; RESP 17; TEMP 36.6; O2SAT 98
[2024-09-28] MEDS: nicotine 4 mg lozenge MUCOUS MEM (07:24)
--- NOTE | 2024-09-28 08:19 | PC.NURSE ---
Pt states that he slept good last night. Denies anxiety and depression, states that he is anxious to leave here He denies SI/HI. Reports no hallucinations. Denies any pain. States that he is having regular bm. Has been up to shower and eat breakfast.
[2024-09-28 08:30] VITALS: BP 114/67
[2024-09-28] MEDS: hyDROXYzine 25 mg Capsule 50 MG PO (08:30)
[2024-09-28] MEDS: multivitamin therapeutic Tablet 1 TAB PO (08:30)
[2024-09-28] MEDS: thiamine 100 mg Tablet PO (08:30)
[2024-09-28] MEDS: fluoxetine 10 mg Capsule 20 MG PO (08:30)
[2024-09-28] MEDS: losartan 50 mg Tablet 25 MG PO (08:30)
[2024-09-28] MEDS: folic acid 1 mg Tablet PO (08:30)
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
[2024-09-28 09:40] VITALS: BP 114/71; PULSE 61; RESP 17; TEMP 36.6; O2SAT 98
== END 2024-09-28 10:56 | disposition other institution (70) | DRG 885 ==
LOC: ER 18:07 → NP 19:49
PROVIDERS: Admitting Provider Psychiatry & Neurology Psychiatry; Emergency Provider Emergency Medicine; PCP Nurse Practitioner Family; Visit Provider Psychiatry & Neurology Psychiatry
DX: F33.2 Major depressive disorder, recurrent severe without psychotic features (principal); F10.239 Alcohol dependence with withdrawal, unspecified; Z79.899 Other long term (current) drug therapy; F41.9 Anxiety disorder, unspecified; K76.0 Fatty (change of) liver, not elsewhere classified; F43.10 Post-traumatic stress disorder, unspecified; F10.229 Alcohol dependence with intoxication, unspecified; M47.22 Other spondylosis with radiculopathy, cervical region
CPT/HCPCS: 36415; 80053; 80306; 80307; 81001; 85025; 97150; 97165; 99285; J9999; Q0162; Q0163

== ENCOUNTER 2025-04-02 12:40 | Emergency (ER) | payer SELFPAY ==
--- NOTE | 2025-04-02 12:43 | XRR_ITS ---
PROCEDURE INFORMATION: Exam: XR Chest Exam date and time: 04/02/2025 1:20 PM Age: 49 years old Clinical indication: Other: Hypertension TECHNIQUE: Imaging protocol: Radiologic exam of the chest. Views: 1 view. COMPARISON: CR XR chest 1V portable [id number] 09/17/2024 12:34 PM FINDINGS: Lungs: Unremarkable. No consolidation. Pleural spaces: Unremarkable. No pleural effusion. No pneumothorax. Heart/Mediastinum: Unremarkable. No cardiomegaly. Bones/joints: Unremarkable. XR/XR chest 1V portable [id number] IMPRESSION: No acute findings.
[2025-04-02 12:53] VITALS: BP 170/112; PULSE 87; RESP 18; TEMP 36.6; O2SAT 99; BMI 26.5
== END 2025-04-02 15:40 | disposition left against medical advice (07) ==
PROVIDERS: Emergency Provider Family Medicine; PCP Nurse Practitioner Family
DX: Z53.21 Procedure and treatment not carried out due to patient leaving prior to being seen by health care provider (principal); I10 Essential (primary) hypertension
CPT/HCPCS: 71045